=== PATIENT | female | born 1940 | race Caucasian/White ===

== ENCOUNTER 2017-01-01 00:19 | Inpatient (IN) | payer OTHER ==
[2017-01-01] MEDS ORDERED: ASPIRIN PO STA (00:26)
[2017-01-01] MEDS ORDERED: NITROGLYCERIN SL PRN (00:26)
[2017-01-01] MEDS ORDERED: CARDIZEM ONE (00:33)
[2017-01-01] MEDS ORDERED: CARDIZEM IV ONE (00:39)
[2017-01-01 00:45] LABS: MANUAL DIFF NEEDED? NO
[2017-01-01 00:47] LABS: BASO% 0.4 % (0.0-0.8); EOS# 0.25 X1000 (0.0-0.7); EOS% 2.7 % (0.0-10.0); HEMOGLOBIN 9.2 g/dL (12.0-16.0); IMM GRAN# 0.03 X1000 (0.0-0.04); IMM GRAN% 0.3 % (0.0-0.5); LYMPH# 1.13 X1000 (1.2-3.4); LYMPH% 12.2 % (20.5-51.1); MCH 27.5 PG (27-31); MCHC 31.7 g/dL (33-37); MCV 86.6 FL (81-99); MONO# 0.69 X1000 (0.11-0.59); MONO% 7.4 % (1.7-9.3); MPV 11.7 FL (7.4-10.4); PLT 241 X1000 (130-400); RBC 3.35 XMIL (4.2-5.4)
--- NOTE | 2017-01-01 00:48 | PROVIDER DOCUMENTATION ---
HPI-Respiratory General - General Chief Complaint: Shortness of Breath Stated Complaint: SOB Time Seen by Provider: 01/01/17 00:25 Source: patient Allergies/Adverse Reactions: Patient Allergies Allergy/AdvReac Type Severity Reaction Status Date / Time No Known Allergies Allergy Verified 01/01/17 00:38 Home Medications: Home Medication List Medication Instructions Recorded Confirmed Last Taken Type Budesonide/Formoterol Fumarate 10.2 gm IH BID 01/01/17 01/01/17 12/31/16 History [Symbicort 160-4.5 Mcg Inhaler] Furosemide [Lasix] 60 mg PO DAILY 01/01/17 01/01/17 12/31/16 History Hydralazine [Apresoline] 50 mg PO TID 01/01/17 01/01/17 12/31/16 History Isosorbide Dinitrate 30 mg PO TID 01/01/17 01/01/17 12/31/16 History Lisinopril [Zestril] 20 mg PO DAILY 01/01/17 01/01/17 12/31/16 History Metolazone 5 mg PO DIRECTED 01/01/17 01/01/17 12/31/16 History Nilotinib HCl [Tasigna] 150 mg PO BID 01/01/17 01/01/17 12/31/16 History - History of Present Illness-Resp Nature of Presenting Problem: pt is 76 y/o WF states she woke up with SOB, weak, dizzy. She checked her pressure and states her heart rate was 150. She called 911. Pt states she is on 3L of home O2. EMS report on arrival pt was diaphoretic in a irregular rhythm and as pt converted into a sinus rhytm her rate got down to the 40's with a very short period of asystole. Quality of Pain: reports: aching, tightness Severity in ED: reports: mild Onset/Duration: reports: just prior to arrival Timing: reports: intermittent Cough Quality/Degree: reports: no cough Current Respiratory Medication Therapy: Initiated see nurses note Modifying Factors: improves with: nothing Associated Symptoms: reports: chest pain/soreness, heart racing, lightheadedness , shortness of breath, sweaty. denies: cough, fever/chills Similar Symptoms Previously?: No Recently seen or treated by another doctor?: No Review of Systems - Adult - REVIEW OF SYSTEMS - ADULT Constitutional: denies: chills, fever Eyes: reports: no symptoms reported Ears, Nose, Mouth & Throat: reports: no symptoms reported Cardiovascular: reports: chest pain, edema Respiratory: reports: shortness of breath. denies: cough, wheezing Gastrointestinal: reports: no symptoms reported Genitourinary: reports: no symptoms reported Musculoskeletal: reports: no symptoms reported Integumentary: reports: no symptoms reported Neurological: reports: no symptoms reported Psychiatric: reports: no symptoms reported Endocrine: reports: no symptoms reported Hematologic/Lymphatic: reports: no symptoms reported Allergic/Immunologic: reports: no symptoms reported All Other Systems: Reviewed and Negative Past History - Adult - PAST MEDICAL HISTORY-ADULT Review of Records: reports: Old Records Reviewed, Nursing Assessment Review, Medications Reviewed Major Childhood Illnesses: reports: denies history Cardiovascular: reports: HTN, other (MVP, bradycardia) Respiratory: reports: asthma Gastrointestinal: reports: other (diverticulitis) Obstetrical/Gynecological: reports: other (breast cancer) Genitourinary: reports: denies history Musculoskeletal: reports: denies history Neurological: reports: denies history Endocrine/Immune: reports: denies history Other Conditions: reports: denies history - PRIOR SURGERIES/PROCEDURES Surgical/Procedure History: reports: colonoscopy, hysterectomy, other (bladder tack, right breast lumpectomy with lymph node removal) - IMMUNIZATION STATUS Childhood Immunizations: See Nurse Assessment Flu Vaccine: See Nurse Assessment - FAMILY HISTORY Family History: reviewed, not pertinent - SOCIAL HISTORY Smoking: non-smoker Substance Use: none/never Living Situation: alone Physical Exam-General - PHYSICAL EXAM-ADULT Initial Vital Signs Reviewed: Yes - CONSTITUTIONAL General Appearance: alert, mild distress, anxious - EYES Eyes: PERRL/EOMI, pink conjunctivae - HEAD, EARS, NOSE, MOUTH & THROAT HENMT: moist mucous membranes, normal ENT inspection, TMs normal, pharynx normal - NECK Neck: non-tender, full range of motion, supple, normal inspection - RESPIRATORY Respiratory: respiratory distress, accessory muscle use, increased rate - CARDIOVASCULAR Cardiovascular: systolic murmur (3/6), irregularly irregular - GASTROINTESTINAL (ABDOMEN) Abdominal Exam: non tender, soft - MUSCULOSKELETAL Back Exam: no CVA tenderness, no vertebral tenderness Extremity: normal range of motion, non-tender, pedal edema (1+) - SKIN Integumentary: normal color, normal turgor, warm/dry - NEUROLOGIC Neurologic: grossly normal, no motor/sensory deficits - PSYCHIATRIC Psych/Mental Status: normal thought content, normal thought process, oriented x 3, anxious Progress - PLAN OF CARE/RESULTS Progress/Plan/Lab Results: Orders Category Date Time Status Cardiac Monitoring DIRECTED Care 01/01/17 00:26 Active Saline Loc NOW Care 01/01/17 00:26 Active CHEST-1 VIEW [RAD] Stat Exams 01/01/17 00:27 Taken CBC WITH ELECTRONIC DIFF [HEME] Stat Lab 01/01/17 00:30 Completed CK PROFILE [SP CHEM] Stat Lab 01/01/17 00:30 Completed COMPREHENSIVE METABOLIC PANEL [CHEM] Stat Lab 01/01/17 00:30 Completed D-DIMER [CHEM] Stat Lab 01/01/17 00:30 Completed MAGNESIUM [CHEM] Stat Lab 01/01/17 00:30 Completed PRO B-NATRIURETIC PEPTIDE Stat Lab 01/01/17 00:30 Completed PROTIME WITH INR [COAG] Stat Lab 01/01/17 00:30 Completed PTT [COAG] Stat Lab 01/01/17 00:30 Completed TROPONIN T Stat Lab 01/01/17 00:30 Completed Aspirin Med 01/01/17 00:26 Discontinued 325 mg PO STAT STA Diltiazem [Cardizem] Med 01/01/17 00:39 Discontinued 10 mg IV NOW ONE Diltiazem [Cardizem] Med 01/01/17 00:33 Discontinued 25 mg .ROUTE .STK-MED ONE Nitroglycerin Sl [Nitroglycerin] Med 01/01/17 00:26 Active 0.4 mg SL Q5M PRN PRN EKG [EKG] Stat Ther 01/01/17 00:22 Ordered EKG [EKG] Stat Ther 01/01/17 00:26 Ordered Vital Signs Temp Pulse Resp BP Pulse Ox 01/01/17 01:43 54 L 27 H 169/49 100 01/01/17 00:42 61 20 144/65 98 01/01/17 00:25 97.8 F 89 27 H 206/74 98 No Known Allergies Allergy (Verified 01/01/17 00:38) Budesonide/Formoterol Fumarate [Symbicort 160-4.5 Mcg Inhaler] 10.2 gm IH BID Furosemide [Lasix] 60 mg PO DAILY 01/01/17 Hydralazine [Apresoline] 50 mg PO TID 01/01/17 Isosorbide Dinitrate 30 mg PO TID 01/01/17 Lisinopril [Zestril] 20 mg PO DAILY 01/01/17 Metolazone 5 mg PO DIRECTED 01/01/17 Nilotinib HCl [Tasigna] 150 mg PO BID 01/01/17 Laboratory 01/01/17 01/01/17 01/01/17 00:30 00:30 00:30 WBC RBC Hgb Hct MCV MCH MCHC RDW Std Deviation Plt Count MPV Immature Gran % (Auto) Neut % (Auto) Lymph % (Auto) Stephens % (Auto) Eos % (Auto) Baso % (Auto) Immature Gran # (Auto) Neut # (Auto) Lymph # (Auto) Stephens # (Auto) Eos # (Auto) Baso # (Auto) PT 9.9 INR 0.97 PTT (Actin FS) 24.7 D-Dimer Sodium Potassium Chloride Carbon Dioxide Anion Gap BUN Creatinine Estimated GFR/1.73 m2 BUN/Creatinine Ratio Glucose Calculated Osmolality Calcium Magnesium Total Bilirubin AST ALT Alkaline Phosphatase Creatine Kinase Troponin T 0.077 [id number] Pept 3219 H Total Protein Albumin Globulin Albumin/Globulin Ratio 01/01/17 01/01/17 01/01/17 00:30 00:30 00:30 WBC 9.29 RBC 3.35 L Hgb 9.2 L Hct 29.0 L MCV 86.6 MCH 27.5 MCHC 31.7 L RDW Std Deviation 15.8 H Plt Count 241 MPV 11.7 H Immature Gran % (Auto) 0.3 Neut % (Auto) 77.0 H Lymph % (Auto) 12.2 L Stephens % (Auto) 7.4 Eos % (Auto) 2.7 Baso % (Auto) 0.4 Immature Gran # (Auto) 0.03 Neut # (Auto) 7.15 H Lymph # (Auto) 1.13 L Stephens # (Auto) 0.69 H Eos # (Auto) 0.25 Baso # (Auto) 0.04 PT INR PTT (Actin FS) D-Dimer 0.48 Sodium 136 Potassium 4.7 Chloride 94 L Carbon Dioxide 28 Anion Gap 14 BUN 58 H Creatinine 1.7 H Estimated GFR/1.73 m2 29 BUN/Creatinine Ratio 34 Glucose 124 H Calculated Osmolality 290 Calcium 9.4 Magnesium 2.0 Total Bilirubin 0.35 AST 17 ALT 21 Alkaline Phosphatase 109 H Creatine Kinase 39 Troponin T [id number]-S-Grtcetozyzp Pept Total Protein 7.1 Albumin 3.8 Globulin 3.3 Albumin/Globulin Ratio 1.2 - EKG 1 Time of EKG reading by physician:: 00:22 EKG Read and Signed by:: Candido Nunez EKG Interpretation (*Must complete 3 of following elements*): Abnormal Rate: 84 Rhythm: NSR with sinus arrhythmia ST Wave: non-specific ST changes Comments: Possible left atrial enlargment 2 Time of EKG reading by physician:: 00:29 EKG Read and Signed by:: Candido Nunez EKG Interpretation (*Must complete 3 of following elements*): Abnormal Rate: 49 Rhythm: Undetermined Rhythm ST Wave: non-specific ST changes Comments: abnormal ECG 3 Time of EKG reading by physician:: 00:44 EKG Read and Signed by:: Candido Nunez EKG Interpretation (*Must complete 3 of following elements*): Abnormal Rate: 129 Rhythm: A-Fib with RVR ST Wave: depressed Comments: consider subendocardial injury - XRAY 1 XRAY Study: Chest Impression: Abnormal XRAY Interpretation: CHF right side infiltrate read by Dr Nunez - CONSULTS/PCP/HOSPITALIST Notification #1 *Consult/PCP/Hospitalist*: Dr Jefferson Time Discussed: 02:06 Reason/Comments: Admission Consult Disposition: Admit (accepts) Departure - Departure Time of Disposition Order: 01:55 DIAGNOSIS: SOB (shortness of breath) CHF (congestive heart failure) Qualifiers: Congestive heart failure type: unspecified congestive heart failure type Congestive heart failure chronicity: unspecified congestive heart failure chronicity Qualified Code(s): I50.9 - Heart failure, unspecified Disposition: ADMITTED INPATIENT 09 Certified Medical Emergency: Emergent Condition: Stable Referrals: Bo Bowman MD [Primary Care Provider] - Attestation - Scribe Verification/Attestation Scribe:: Augusto Levine Acting as Scribe for:: Candido Nunez Scribe documention review:: This chart was documented by a scribe and accurately reflects the service the provider performed and the decisions made by the provider.
[2017-01-01 01:06] LABS: ALBUMIN 3.8 g/dL (3.5-5.0); CALCIUM 9.4 mg/dL (8.8-10.2); POTASSIUM 4.7 mmol/L (3.5-5.1); TOTAL BILIRUBIN 0.35 mg/dL (0.20-1.00); TOTAL PROTEIN 7.1 g/dL (6.3-8.3)
[2017-01-01 01:07] LABS: INR 0.97; PROTIME 9.9 Seconds (9.2-11.7); PTT 24.7 Seconds (22.0-36.0)
[2017-01-01] MEDS ORDERED: LASIX IV ONE (02:09)
[2017-01-01] MEDS: LASIX IV SCH ×2 (02:15→14:12)
[2017-01-01] MEDS ORDERED: LOVENOX SUBQ SCH (03:30)
[2017-01-01 03:35] LABS: URINE CULTURE NEEDED? NO; URINE MICRO REVIEW NEEDED? NO; URINE SOURCE CATH
[2017-01-01 03:37] LABS: BILIRUBIN URINE NEGATIVE (NEGATIVE); BLOOD URINE NEGATIVE (NEGATIVE); COLOR YELLOW; GLUCOSE URINE NEGATIVE (NEGATIVE); LEUKOCYTES URINE NEGATIVE (NEGATIVE); NITRITE URINE NEGATIVE (NEGATIVE); PH URINE 7.5; PROTEIN URINE 50 mg/dL (NEGATIVE); SP GRAVITY URINE 1.009; TURBIDITY URINE CLEAR (CLEAR); UROBILINOGEN URINE NORMAL (NORMAL)
[2017-01-01 03:38] LABS: UR EPITHELIAL CELLS <10 /HPF (<10); URINE BACTERIA NEGATIVE /HPF; URINE RBC <10 /HPF (<10); URINE WBC <10 /HPF (<10)
--- NOTE | 2017-01-01 04:44 | HISTORY AND PHYSICAL ---
CHIEF COMPLAINT: Shortness of breath. HISTORY OF PRESENT ILLNESS: Briefly, a 76-year-old female with a history of hypertension, mitral valve prolapse, and CML who presents with worsening shortness of breath. Patient has had several episodes of weakness. She had a fairly prolonged course in May with a colectomy. She was admitted about 2 months ago for a GI bleed. Patient reports this time, more shortness of breath. No mitch chest pains. Positive palpitations. No other main issues. However, she came to the ER. She was in atrial fibrillation with rapid ventricular response with a heart rate in the 140s. That has since been rate controlled with IV medications. She was also found to be in CHF and she was admitted for both problems. Past medical history of CML, on Tasigna. The patient again is admitted for CHF exacerbation and atrial fibrillation with RVR. PAST SURGICAL HISTORY: She has had a hysterectomy. She has had a partial colectomy for a polyp. PAST MEDICAL HISTORY: 1. History of cholelithiasis. 2. Chronic renal failure stage II. 3. CML. 4. History of sick sinus syndrome. 5. Mitral valve prolapse. FAMILY HISTORY: Reviewed and noncontributory. SOCIAL HISTORY: No tobacco or ethanol. ALLERGIES: No known drug allergies. MEDICATIONS: She is on hydralazine 50 t.i.d., Symbicort b.i.d., isosorbide dinitrate 30 t.i.d., Lasix 60 daily, Zestril 20 daily, metolazone 5 three times a week, and Tasigna 150 b.i.d. REVIEW OF SYSTEMS: Otherwise negative. PHYSICAL EXAMINATION: VITAL SIGNS: Blood pressure 169/49, heart rate 54, respiratory rate is 27, temperature 97.8 degrees. LABORATORY DATA: Chest x-ray is pending but showed some interstitial infiltrates. Laboratory data, hemoglobin and hematocrit of 9 and 29, white count normal. BUN and creatinine 58 and 1.7. BNP 3219. Urine was not obtained. ASSESSMENT: This is a 76-year-old female presenting with shortness of breath and palpitations, consistent with a congestive heart failure exacerbation, possible atrial fibrillation with rapid ventricular response leading to the pulmonary congestion. She does have tricuspid regurgitation and severe pulmonary hypertension. 1. Congestive heart failure exacerbation. Continue diuresis and follow clinically. 2. We will not repeat an echocardiogram because it was just done and her tricuspid regurgitation explains the physical examination findings. 3. Atrial fibrillation is a new diagnosis. I am going to start some low-dose Cardizem if her heart rate can tolerate. Follow her electrolytes. I do think she needs to be anticoagulated. She is 74 and a female with hypertension. She will need evaluation for outpatient with medications. 4. Hypertension, appears to be stable. Continue to monitor very closely. 5. Chronic myeloid leukemia. We will continue to monitor. Obviously from a heart failure standpoint, we are going to have to hold the Tasigna for right now.
--- NOTE | 2017-01-01 05:23 | EKG Report ---
Test Performed on : 01/01/2017 00:22:53 AM Test Reason : SOB Blood Pressure : / mmHG Vent. Rate : 084 BPM Atrial Rate : 084 BPM P-R Int : 156 ms QRS Dur : 088 ms QT Int : 374 ms P-R-T Axes : 043 024 -14 degrees QTc Int : 441 ms Normal sinus rhythm. with sinus arrhythmia. Possible Left atrial enlargement ST & T wave abnormality, consider inferior ischemia Abnormal ECG When compared with ECG of 08-NOV-2016 14:16, Inverted T waves have replaced nonspecific T wave abnormality in Inferior leads Nonspecific T wave abnormality no longer evident in Lateral leads QT has lengthened Unconfirmed Result
--- NOTE | 2017-01-01 05:23 | EKG Report ---
Test Performed on : 01/01/2017 00:29:45 AM Test Reason : SOB Blood Pressure : / mmHG Vent. Rate : 049 BPM Atrial Rate : 039 BPM P-R Int : 000 ms QRS Dur : 094 ms QT Int : 378 ms P-R-T Axes : 000 038 002 degrees QTc Int : 341 ms Undetermined rhythm Nonspecific ST abnormality Abnormal ECG When compared with ECG of 01-JAN-2017 00:22, (Unconfirmed) Current undetermined rhythm precludes rhythm comparison, needs review T wave inversion less evident in Inferior leads T wave inversion less evident in Anterior leads QT has shortened Unconfirmed Result
[2017-01-01] MEDS: NITROGLYCERIN TOP SCH ×4 (05:33→21:30)
[2017-01-01] MEDS ORDERED: TYLENOL PO PRN (06:45)
[2017-01-01] MEDS ORDERED: ZOFRAN IV PRN (06:45)
[2017-01-01] MEDS: SYMBICORT 160/4.5 MICROGM INHALER INH SCH ×3 (07:30→19:30)
[2017-01-01] MEDS ORDERED: ISOSORBIDE DINITRATE 30 MG PO SCH (09:00)
[2017-01-01] MEDS ORDERED: COREG PO SCH (09:00)
[2017-01-01] MEDS ORDERED: APRESOLINE PO SCH (09:00)
[2017-01-01] MEDS: PRINIVIL PO SCH (09:20)
[2017-01-01] MEDS: CARDIZEM PO SCH ×3 (09:20→16:53)
--- NOTE | 2017-01-01 12:28 | Diag Imaging Result Document ---
PROCEDURE NAME: CHEST-1 VIEW - 01/01/2017 PORTABLE CHEST X-RAY: COMPARISON: 08/15/2016. FINDINGS: Stable significant right hemidiaphragm elevation. Stable significant cardiomegaly. Stable pulmonary vascular congestion. Stable right basilar atelectasis. No new or focal infiltrates. IMPRESSION: No significant change from prior.
[2017-01-01] MEDS ORDERED: LOPRESSOR PO SCH ×2 (14:00→21:00)
[2017-01-01] MEDS: APRESOLINE PO SCH ×2 (14:13→16:53)
--- NOTE | 2017-01-01 16:04 | CONSULTATION ---
DATE OF CONSULTATION: 01/01/2017 HISTORY OF PRESENT ILLNESS: A 76-year-old lady with a history of mitral valve prolapse, CML, GI bleeding in the past. Two months ago was admitted in the hospital for GI bleed. Comes having sudden onset of palpitations associated with shortness of breath. She was noted to be in atrial fibrillation with rapid ventricular rate with a heart rate of 140s. She also was noted to have some shortness of breath. Denies any chest pain. She came to the emergency room and subsequently she went back into normal rhythm and had bradycardias in the 50s. This is the 1st time she has had palpitations or atrial fibrillations which has been recorded. REVIEW OF SYSTEM: 14 point review of systems was done. GI: There is no history of nausea, vomiting, diarrhea. There is no history of hematemesis or melena. : There is no dysuria or hematuria. Central nervous system: No focal weakness to suggest a CVA or TIA. PAST MEDICAL HISTORY: 1. Cholelithiasis. 2. Mitral valve prolapse. 3. Chronic myeloid leukemia. 4. Chronic renal insufficiency. 5. GI bleed status post upper GI and colonoscopy. 6. Polypectomy in the recent past. 7. Hypertension. HOME MEDICATIONS: 1. Hydralazine 50 t.i.d. 2. Symbicort twice daily. 3. Isosorbide dinitrate 30 t.i.d. 4. Lasix 60. 5. Zestril 20. 6. Metolazone 2.5, 3 times a week. 7. Tasigna 150 b.i.d. for her CML. PHYSICAL EXAMINATION: Vital signs: Blood pressure 160/49. Cardiovascular System: Normal jugular venous pressure. There is no thyromegaly. There is no carotid bruit. First and second heart sounds were heard. There was no S3 gallop. Respiratory System: Normal air entry. There were no crepitations and a few scattered wheezes were noted. Abdomen: Soft, nontender. There was no guarding or rigidity. Bowel sounds were heard. Central nervous system: Alert, was moving all 4 extremities. Extremities: Examination of extremities revealed no pedal edema. PERTINENT DATA: 1. Laboratory revealed sodium 136, potassium 4.7, BUN 58, creatinine 1.7. Troponin initial was normal at 0.77. Subsequent abnormal troponin at 0.129. CK-MB was 36 and 39. 2. Electrocardiogram revealed atrial fibrillation with nonspecific ST-T changes, heart rate of 130, and subsequent electrocardiogram revealed normal sinus rhythm. There were no ST-T changes to suggest ischemia. 3. Hematology: Hemoglobin 9.2, hematocrit 29, platelet count of 241,000. 4. Echocardiogram done on 11/09/2016 revealed ejection fraction of 70%. There is severe pulmonary arterial hypertension with pulmonary artery systolic pressure of 80-85 mmHg. ASSESSMENT: 1. New onset atrial fibrillation. Currently in sinus rhythm. Associated with severe pulmonary arterial hypertension. She has episodes of bradycardia in the 50s; however, she probably has sick sinus syndrome and we will try her on low-dose beta-blockers. 2. We will also get a Cardiolite stress test to assess for and rule out ischemia. 3. She is not anticoagulated as she recently had a gastrointestinal bleed. 4. Her chest x-ray revealed cardiomegaly. There was some basilar atelectasis. No focal infiltrates were noted. No significant change from prior study. 5. Hypertension. Continue with her current medications. 6. She has been on Lasix and metolazone at home. We will currently decrease the Lasix to 40 mg daily. Thank you for the consult. We will follow hospital course.
[2017-01-02 04:00] LABS: HEMATOCRIT 26.4 % (37.0-47.0); HEMOGLOBIN 8.5 g/dL (12.0-16.0); MCH 27.8 PG (27-31); MCHC 32.2 g/dL (33-37); MCV 86.3 FL (81-99); MPV 12.5 FL (7.4-10.4); RBC 3.06 XMIL (4.2-5.4)
[2017-01-02 04:19] LABS: CALCIUM 8.9 mg/dL (8.8-10.2); POTASSIUM 4.8 mmol/L (3.5-5.1)
--- NOTE | 2017-01-02 07:23 | Diag Imaging Result Document ---
PROCEDURE NAME: CHEST-PORTABLE - 01/02/2017 PORTABLE CHEST: COMPARISON: 01/01/2017. FINDINGS: The right hemidiaphragm is elevated. The heart remains enlarged. There is vascular distention which persists. Questionable tiny right effusion. No left effusion identified. The overall appearance is quite similar to that of the prior exam. IMPRESSION: Stable chest.
[2017-01-02] MEDS ORDERED: LEXISCAN ONE (07:51)
[2017-01-02] MEDS ORDERED: AMINOPHYLLINE ONE (08:31)
[2017-01-02] MEDS ORDERED: LASIX PO SCH (09:00)
[2017-01-02] MEDS: PRINIVIL PO SCH (09:38)
[2017-01-02] MEDS: NITROGLYCERIN TOP SCH ×4 (09:46→21:43)
[2017-01-02] MEDS: SYMBICORT 160/4.5 MICROGM INHALER INH SCH ×2 (10:15→20:10)
[2017-01-02] MEDS: APRESOLINE PO SCH ×3 (10:16→17:40)
[2017-01-02] MEDS: CARDIZEM PO SCH ×3 (10:16→17:40)
[2017-01-02] MEDS ORDERED: NS 1,000 ML IV SCH ×2 (12:00→16:47)
--- NOTE | 2017-01-02 13:34 | Diag Imaging Result Document ---
PROCEDURE NAME: MYOCARDIAL PERF SCAN, STR/REST - 01/02/2017 STUDY: Rest/stress Lexiscan myocardial perfusion study. REQUESTING PHYSICIAN: David Francisco MD PRIMARY PHYSICIAN: Bo Bowman MD INDICATION: Abnormal electrocardiogram and high blood pressure. DESCRIPTION: The patient came into the nuclear lab and received a rest injection of technetium 99 sestamibi 10.7 mCi. Multiple tomographic views of the cardiac structures were obtained at rest. Subsequently the patient underwent infusion of Lexiscan 0.4 mg. At peak infusion she was injected with technetium 99 sestamibi 30.3 mCi. Multiple tomographic views were obtained following the completion of the protocol. The following is a summary of the electrocardiographic portion of the study. Resting ECG showed sinus bradycardia, possible junctional bradycardia at a rate of 50 beats per minute. Resting blood pressure was 178/88. Resting ECG suggests an old lateral infarct. During infusion of Lexiscan the heart rate increased to a maximum of 85 beats per minute. Blood pressure dropped to 115/62. The patient reported mild shortness of breath and some nausea. The ECG showed exaggeration of the ST abnormality in the lateral leads. Some PACs were noted. Following the completion of infusion the heart rate and blood pressure returned back to baseline. There was a very pronounced ST abnormality at about 2.5 minutes into the postinfusion. The patient received aminophylline 125 mg. In summary, electrocardiographic response to infusion of Lexiscan is deemed to be suspicious for ischemia. Next, is the summary of the myocardial perfusion portion of the study. Poststress tomographic views of the left ventricle showed a severe focal apical anterior defect. In addition, there is more moderately extensive [id number] in severity inferior wall defect that spans the basal and mid inferior wall. The rest images showed reversibility of the inferior defect almost in its entirety and significant reversibility of the apical anterior defect. It is really a mixed defect. Polar plots revealed that there is inducible ischemia on top of what appears to be a focal scar in the apical anterior area of the left ventricle and also inducible ischemia of the inferior wall in the basal to mid portion. Minimal attenuation or scar is noted in the basal inferior wall. Gated SPECT showed normal left ventricular systolic function. The ejection fraction was 60%. The lung/heart ratio is normal. TID is normal. SUMMARY: In summary, this study shows: 1. Abnormal electrocardiographic response to infusion of Lexiscan. Suspicious for inducible ischemia. 2. Abnormal poststress myocardial perfusion scan. There is evidence of inducible ischemia involving the apical anterior portion of the left ventricle as well as the basal to mid inferior wall of the left ventricle. That would be two separate coronary territories. 3. Normal left ventricular systolic function with ejection fraction estimated at 60% with normal ventricular volumes and no wall motion abnormality. This study indicates a significant increased risk for ischemic events. Clinical correlation is recommended.
--- NOTE | 2017-01-02 18:49 | CONSULTATION ---
DATE OF CONSULTATION: 01/02/2017 REASON FOR ADMISSION: Shortness of breath. REASON FOR CONSULT: Chronic kidney disease with assistance with medical management prior to left and right heart catheterization per cardiology. HISTORY OF PRESENT ILLNESS: Ms Estrada is a 76-year-old white female with a history of CKD stage 3. She has had a history of significant hyponatremia. She has hypertension, mitral valve prolapse, CML, who presents with worsening increased work of breathing over the last several days prior to her admission. She has had frequent hospitalizations in the last year. She has had a colectomy in May. Two months ago she had GI bleed. Prior to that she had increased work of breathing. Prior to that she had hyponatremia. Upon presentation to the emergency room patient had a atrial fibrillation with RVR. Heart rate was in the 140s. She was given IV medications for rate control. She was also found to be in congestive heart failure and subsequently admitted for workup. Patient takes Tasigna for her CML. During this period of time she denies any chest pain. She states that her increased work of breathing has improved. She continues to keep a very close fluid restriction of 1 L in 24 hours. She denies any fever or chills. No nausea, vomiting, no diarrhea. Positive for increased work of breathing with any exertion. She has had an abnormal stress test secondary to this. Cardiology would like to transfer her to [facility] for workup and procedure of left and right heart catheterization. Patient's family has requested that nephrology see her due to the admission of IV fluid prior to having this procedure to well hydrate the patient. PREVIOUS SURGICAL HISTORY: She has had a hysterectomy, partial colectomy for polyp and a colectomy. MEDICAL HISTORY: Cholelithiasis, chronic kidney disease stage 3, CML, history of sick sinus syndrome, mitral valve prolapse and a history of hyponatremia. FAMILY HISTORY: Noncontributory. SOCIAL HISTORY: She lives alone. She has a daughter who is attentive to her care. She denies any tobacco, alcohol or illicit drug use. CURRENT ALLERGIES: No known drug allergies. HOME MEDICATIONS: Hydralazine, Symbicort, isosorbide dinitrate, Lasix, Zestril, metolazone and Tasigna. REVIEW OF SYSTEMS: Times 10 with pertinent positives listed above in the HPI. VITAL SIGNS: Most recent temperature 97.9 degrees, blood pressure 179/53, heart rate 68, respirations 20. She is currently on 3 L nasal cannula. Last recorded saturation is 100%. She has had 1390 in. She has had 2100 out per Carrasco catheter. She is in a -3 L fluid balance for the last 48 hours with already accumulation of 2750 out per Carrasco since this a.m. LABS: Sodium 138, potassium 4.8, chloride 95, CO2 30, BUN 59, creatinine 1.6, glucose 110, her anion gap is 13, calcium 8.9, previous magnesium of 2, albumin of 3.8. Her BNP is 5599. She has elevated troponins, negative CPKs and MBs. White count 8.72, hemoglobin 8.5, hematocrit 26.4 with a platelet count of 232,000. Her PT is 9.9, INR 0.97, PTT 24.7 with a D-dimer 0.48. Urinalysis is trace proteinuria, negative hematuria, negative leukocytes. Throat culture is still currently pending. Group A strep is negative. Chest x-ray completed at noon today shows stable chest. Stress test indicated showing that she has a 60% ejection fraction with abnormal EKGs both resting and active. PHYSICAL EXAMINATION: General: This is a 76-year-old white female. She is currently resting in bed. She is eating her dinner. She has no complaints at this time. Skin: Warm and dry. HEENT: Normocephalic, atraumatic. Conjunctiva is pale. Mucous membranes are moist. Neck: Supple. Trachea midline. No JVD. Cardiovascular: She is irregular rate and rhythm. She is irregular on her heart monitor. No murmur or gallop were appreciated. Lungs: She has a few scattered wheezes the upper lobes. She continues on O2. Equal excursion. No crackles noted. Abdomen: Round, soft, nontender. Positive bowel sounds. Extremities: Have no edema, no clubbing or cyanosis. Neurological: Alert and oriented x3. ASSESSMENT AND PLAN: 1. Chronic kidney disease stage 3B. Patient's baseline creatinine remains stable. We have discussed possible complications related to a left and right heart catheterization. Patient is in agreement to go ahead and starting a low dose of normal saline to infuse at 50 mL an hour. She states that she would like to have a PICC line. Unfortunately the PICC team after talking with the nurse has already left for the day. We will attempt to use the current IV that we have. There is no indications for any changes at this time. 2. Electrolytes. These are stable. 3. Acid-base balance. This is stable. 4. Anemia. This remains stable. 5. Electrocardiogram with atrial fibrillation and nonspecific ST changes. Patient has suggestion of ischemic heart. The cardiology team is attempting to get her to [facility] for plan for right and left heart catheterization. I would like to thank you for allowing us to follow with this patient. Dictated by CLAUDIA Berry for oDnato Jaramillo MD
[2017-01-02 19:34] VITALS: BP 127/49
--- NOTE | 2017-01-03 14:10 | DISCHARGE SUMMARY ---
ADMISSION DATE: 01/01/2017 DISCHARGE DATE: 01/02/2017 CONSULTATION: Dr. David Francisco, Cardiology. PERTINENT PROCEDURES: Lexiscan that showed an electrographic response to infusion of Lexiscan scan that seemed to be suspicious for ischemia and post-stress tomographic views of the left ventricle showed severe probable apical anterior defect. There was evidence of inducible ischemia involving the anterior portion of the left ventricle as well as the vpebi-rh-xan inferior wall of the left ventricle. That would be 2 separate coronary territories. Normal left ventricular systolic function with an EF estimated at 60%. The study indicated significant increased risk for ischemic event. DISCHARGE DIAGNOSES: 1. Chronic heart failure exacerbation. The patient was initiated on diuresis with a repeat echocardiogram. 2. New onset atrial fibrillation. The patient will start on low-dose Cardizem. Electrolytes were followed. The patient will be admitted and placed on anticoagulation. Cardiology was consulted. 3. Hypertension, stable. 4. Chronic myeloid leukemia. Her Tasigna was held for now in light of her heart failure. assessed the patient. She was currently in sinus rhythm associated with severe pulmonary hypertension. She has had episodes of bradycardia in the 50s. It was felt she probably has sick sinus syndrome and that he would start her on a low-dose beta devonte. Also suggested to do a Cardiolite stress test to rule out any ischemia. After further assessment, the patient had a recent GI bleed so she will not be anticoagulated. At this point in time, the patient did undergo a Lexiscan stress test. This study did indicate a significant increased risk for ischemic event. She did have a normal electrocardiographic response to the infusion as well as abnormal post stress myocardial perfusion scan with evidence of inducible ischemia involving the apical anterior portion of the left ventricle as well as the gyfyz-qu-tlv inferior wall of the left ventricle. That will be 2 separate coronary territories. EF of 60% with normal ventricle volumes and no wall motion abnormality. After discussion with Cardiology, the patient will be transferred to [facility] for further evaluation as well as GI evaluation. DISCHARGE MEDICATIONS: Will be as per Dr. Vogel and the Cardiology team. DISCHARGE INSTRUCTIONS: The patient will need to follow up with her primary care physician, Dr. Bo Bowman after her admission from [facility] as well as following up with Cardiology and GI per their recommendations. DISCHARGE TIME: 30 minutes. Dictated by CLAUDIA Kim for Dillon Maldonado MD
--- NOTE | 2017-01-05 09:16 | CONSULTATION ---
DATE OF CONSULTATION: 01/05/2017 We appreciate this consult CHIEF COMPLAINT: CML. HISTORY OF PRESENT ILLNESS: Ms. Estrada is a 76-year-old female with a history of chronic myeloid leukemia, hypertension, mitral valve prolapse who presented to [facility] Emergency Department secondary to progressively worsening shortness of breath. The patient reports that she has had several episodes of profound weakness. Additionally she reports that she had a colectomy in May with a prolonged recovery. The patient was admitted 2 months ago for a GI bleed as well. The patient reports that prior to presentation she had progressively worsening shortness of breath. She denies any chest pain. She does report that she had palpitations as well. Upon presentation to [facility] the patient was found to be in atrial fibrillation with rapid ventricular response. Her heart rate was in the 140s. The patient was begun on IV medication which has controlled her rate. Additionally she is found to be in congestive heart failure at this time. The patient is well known to Dr. Laci Kimble for a diagnosis of CML. She is being maintained on Tasigna. PAST MEDICAL HISTORY: 1. Cholelithiasis. 2. Chronic renal failure stage 2. 3. CML. 4. Sick sinus syndrome. 5. Mitral valve prolapse. PAST SURGICAL HISTORY: 1. Hysterectomy. 2. Partial colectomy. FAMILY HISTORY: Negative for any hematologic or oncologic disease. SOCIAL HISTORY: The patient denies any tobacco, alcohol or illicit drugs. MEDICATIONS ON ADMISSION: 1. Hydralazine. 2. Symbicort. 3. Isosorbide dinitrate. 4. Lasix. 5. Zestril. 6. Metolazone. 7. Tasigna. ALLERGIES: The patient has no known drug allergies. REVIEW OF SYSTEMS: The 14 point review of systems was obtained and is negative except as mentioned in HPI. PHYSICAL EXAM: Ms. Estrada is a very pleasant 76-year-old female lying supine in bed. Slightly dyspneic but otherwise in no apparent distress.Vital Signs: Temperature afebrile. Blood pressure 174/51. Heart rate 41. Respirations 20, O2 saturation is 100% on 3 L. HEENT: Normocephalic, atraumatic. Mucous membranes are pale and somewhat dry. Sclerae is anicteric. Extraocular movements intact. Extraocular movements intact. Neck: Supple. Lungs: Clear to auscultation bilaterally. Chest expansion is equal bilaterally. CV: S1, S2 is heard without murmur, rub or gallop. Abdomen: Soft, nondistended, nontender. Bowel sounds positive all quadrants. No rebound or guarding noted. Extremities: Without clubbing, cyanosis, or edema. Dermatologic: No rashes, bruises or lesions. Neurologic: The patient is awake, alert, and oriented x3. She has no focal deficit at this time. LABORATORY DATA: Hemoglobin 8.5, hematocrit 26.4, white blood cell count is 8.72, platelets 232,000. Sodium 138, potassium 4.8, chloride 95, CO2 is 30, BUN 59, creatinine 1.6, glucose 110, proBNP is 5599. Calcium 8.9. Throat culture is currently pending. Strep test is negative. Chest x-ray was stable. ASSESSMENT AND PLAN: 1. Chronic myeloid leukemia, currently being maintained on Tasigna. We will hold Tasigna until the patient's acute illness passes. 2. Congestive heart failure exacerbation with a proBNP of 5599. The patient is currently improving on Lasix. She is lying in bed, slightly dyspneic but in no immediate distress on 3 L nasal cannula O2. We agree with current management. 3. New onset atrial fibrillation. Currently on a Cardizem drip with rate control. 4. Hypertension 174/51 today. We agree with antihypertensives as ordered. 5. Deep vein thrombosis risk. We agree with the SCDs as ordered. 6. We will follow along with you and make further recommendations pending outcomes. The above reflects the history and exam and assessment and plan of Dr. Kimble. Dictated by CLAUDIA Rice for Laci Kimble MD
== END 2017-01-02 22:00 | disposition short-term general hospital (02) | DRG 291 ==
LOC: ED 00:19 → EDIPHOLD 03:04 → 3N 01-02 12:33
PROVIDERS: ATTEND Internal Medicine
DX: I13.0 Hypertensive heart and chronic kidney disease with heart failure and stage 1 through stage 4 chronic kidney disease, or unspecified chronic kidney disease (principal); I50.33 Acute on chronic diastolic (congestive) heart failure; C92.10 Chronic myeloid leukemia, BCR/ABL-positive, not having achieved remission; I27.2 Other secondary pulmonary hypertension; I49.5 Sick sinus syndrome; I08.1 Rheumatic disorders of both mitral and tricuspid valves; I48.91 Unspecified atrial fibrillation; N18.3 Chronic kidney disease, stage 3 (moderate); Z90.49 Acquired absence of other specified parts of digestive tract; Z79.899 Other long term (current) drug therapy; Z79.51 Long term (current) use of inhaled steroids
CPT/HCPCS: 36415; 51702; 71010; 78452; 80048; 80053; 81001; 82550; 83735; 83880; 84484; 85025; 85027; 85379; 85610; 85730; 87081; 87430; 93005; 93017; 94761; 96374; 96375; 96376; A9500; J0280; J1650; J1940; J7030; 94640-76; J0820

== ENCOUNTER 2018-11-12 10:23 | Inpatient (IN) ==
[2018-11-12] MEDS ORDERED: LASIX 100 MG in NS 90 ML IV SCH (14:15)
[2018-11-12] MEDS ORDERED: NS 250 ML ONE (14:26)
[2018-11-12] MEDS ORDERED: ZAROXOLYN PO ONE (14:35)
--- NOTE | 2018-11-12 14:36 | EKG Report ---
Test Performed on : 11/12/2018 2:26:30 PM Test Reason : CHF Blood Pressure : / mmHG Vent. Rate : 080 BPM Atrial Rate : 080 BPM P-R Int : 154 ms QRS Dur : 150 ms QT Int : 440 ms P-R-T Axes : 080 -84 080 degrees QTc Int : 507 ms AV dual-paced rhythm Abnormal ECG When compared with ECG of 01-JAN-2017 00:29, The pacemaker is new Confirmed by Brady REESE, Aaron Garay ([id number]) on 11/13/2018 4:30:46 PM
--- NOTE | 2018-11-12 14:37 | Diag Imaging Result Doc PS360 ---
CHEST-PORTABLE - 11/12/2018 INDICATION: CHF COMPARISON: 09/27/2018 FINDINGS: Stable severe right hemidiaphragm elevation. Stable biventricular pacemaker. Stable cardiomegaly and pulmonary vascular congestion. There are new hazy interstitial infiltrates bilaterally compatible with pulmonary edema. There is some increasing linear atelectasis in the right lung base. IMPRESSION: 1. Significant worsening in pulmonary edema. 2. Worsening linear atelectasis or infiltrate in the right lung base. Electronically signed by Mark Lowery 11/12/2018 2:35 PM
[2018-11-12] MEDS ORDERED: VENTOLIN HFA INH PRN (15:07)
[2018-11-12 16:03] LABS: BASO# 0.02 X1000 (0.0-0.2); BASO% 0.2 % (0.0-0.8); EOS# 0.08 X1000 (0.0-0.7); EOS% 0.7 % (0.0-10.0); HEMATOCRIT 32.2 % (37.0-47.0); HEMOGLOBIN 10.3 g/dL (12.0-16.0); IMM GRAN# 0.03 X1000 (0.0-0.04); IMM GRAN% 0.2 % (0.0-0.5); LYMPH# 0.79 X1000 (1.2-3.4); LYMPH% 6.5 % (20.5-51.1); MCV 87.5 FL (81-99); MONO# 0.86 X1000 (0.11-0.59); MPV 11.6 FL (7.4-10.4); NEUT# 10.45 X1000 (1.4-6.5); NEUT% 85.4 % (42.2-75.2); PLT 233 X1000 (130-400); RBC 3.68 XMIL (4.2-5.4); RDW 19.4 % (11.5-14.5); WBC 12.23 X1000 (4.8-10.8)
[2018-11-12 16:05] LABS: INR 0.98; PROTIME 13.7 Seconds (11.0-16.0)
[2018-11-12 16:06] LABS: PTT 27.4 Seconds (22.3-41.8)
[2018-11-12 16:17] LABS: URINE SOURCE CATH
[2018-11-12 16:23] LABS: BILIRUBIN URINE NEGATIVE (NEGATIVE); BLOOD URINE NEGATIVE (NEGATIVE); COLOR YELLOW; GLUCOSE URINE NEGATIVE (NEGATIVE); KETONE URINE NEGATIVE (NEGATIVE); LEUKOCYTES URINE NEGATIVE (NEGATIVE); NITRITE URINE NEGATIVE (NEGATIVE); PH URINE 6.5; PROTEIN URINE 70 mg/dL (NEGATIVE); SP GRAVITY URINE 1.009; TURBIDITY URINE CLEAR (CLEAR); UR EPITHELIAL CELLS <10 /HPF (<10); URINE BACTERIA NEGATIVE /HPF; URINE RBC <10 /HPF (<10); URINE WBC <10 /HPF (<10); UROBILINOGEN URINE NORMAL (NORMAL)
[2018-11-12 16:29] LABS: ALB/GLOB RATIO 1.7; ALBUMIN 4.3 g/dL (3.5-5.0); CALCIUM 10.1 mg/dL (8.8-10.2); CREATININE 1.9 mg/dL (0.5-0.9); MAGNESIUM 2.3 mg/dL (1.5-2.7); POTASSIUM 4.8 mmol/L (3.5-5.1); TOTAL BILIRUBIN 0.58 mg/dL (0.20-1.00); TOTAL PROTEIN 6.9 g/dL (6.3-8.3)
[2018-11-12 16:47] LABS: LYMPHS 3 % (21-51); MONO 3 % (1-9); SEGS 94 % (42-75)
[2018-11-12] MEDS: APRESOLINE PO SCH (16:52)
[2018-11-12] MEDS: LASIX 100 MG in NS 90 ML IV SCH (16:52)
--- NOTE | 2018-11-12 18:51 | HISTORY AND PHYSICAL ---
SOLAR PROJECT ENGINEER: Rl Browning MD. PRIMARY CARE PHYSICIAN: Bo Bowman MD. CHIEF COMPLAINT: Shortness of breath x1 month. She was a direct admit from Dr. Rl Browning's office. HISTORY OF PRESENT ILLNESS: Ms. Estrada is a 78-year-old female who carries a past medical history of coronary artery disease, diastolic heart failure, pulmonary edema on supplemental O2, hypertension, peripheral edema, chronic kidney disease, ulcerative colitis, breast cancer, chronic leukemia in remission, GI bleeding secondary to anticoagulation, pacemaker secondary to sick sinus syndrome, atrial fibrillation, proximal mitral regurgitation. The patient reported to Dr. Rl Browning's office. She reported a 15-pound weight gain since March 2018. In May, she suffered from shingles, got those cleared up, had another round of shingles in September, and stated those have been treated. She states since that time she feels like she has gone downhill. She reports shortness of breath x1 month with continued pitting edema despite taking her diuretics. She states she only rarely drinks sodas. Her last soft drink was 1 week ago. She has no extra salt and avoids canned foods. She also reported abdominal fullness, easy satiety. She denies any chest pain, palpitations, fever, chills, cough, headache, nausea, vomiting, or diarrhea. She is being admitted to [facility], started on IV Lasix. She will receive a PICC line as well as a Carrasco catheter, continue on her supplemental O2, and we will continue to trend her laboratory data. PAST MEDICAL HISTORY: 1. Sick sinus syndrome status post permanent pacemaker. 2. Paroxysmal atrial fibrillation, not on anticoagulation, secondary to GI bleed. 3. GI bleed, secondary to anticoagulation. 4. Mitral regurgitation. 5. CAD. 6. Diastolic congestive heart failure. 7. Pulmonary edema. 8. Peripheral edema. 9. Chronic kidney disease. 10. Diverticulitis. 11. Breast cancer. 12. Chronic leukemia, in remission. 13. Anemia. 14. Obesity. 15. Last echocardiogram on 11/02/2016 showed an EF of 70% and a pulmonary systolic pressure of 80 to 85 mmHg. PAST SURGICAL HISTORY: 1. Permanent pacemaker placement. 2. Hysterectomy. 3. Partial colectomy for polyp issues. SOCIAL HISTORY: The patient denies any alcohol, tobacco, or illicit drug use. She is a . She lives alone. FAMILY HISTORY: Noncontributory. HOME MEDICATIONS: 1. Ventolin inhaler 1 each inhaled daily. 2. Symbicort 160-4.5 mcg inhaler 1 each inhaled b.i.d. 3. Vitamin B12 3000 mcg p.o. daily. 4. Flonase 1 spray nasal q.a.m. 5. Lasix 40 mg p.o. q.a.m. 6. Hydralazine 50 mg p.o. t.i.d. 7. Reglan 5 mg p.o. daily. 8. Protonix 40 mg p.o. daily. 9. MiraLAX 17 g p.o. daily. 10. Effexor XR 37.5 mg p.o. daily. ALLERGIES: No known drug allergies. PHYSICAL EXAMINATION: VITAL SIGNS: Temperature is 97.9 degrees, heart rate 80, respirations 14, blood pressure 164/57, O2 is 98% on 4 L nasal cannula. GENERAL: Ms. Estrada is a pleasant, 78-year-old female who is somewhat short of breath lying in bed, but in no acute distress. HEENT: Atraumatic, normocephalic. PERRL. NECK: Supple. Trachea midline. CARDIOVASCULAR: S1, S2 appreciated. Cannot appreciate any murmurs, gallops, or rubs. RESPIRATORY: Complaints of shortness of breath. No rhonchi or wheezes noted. Bilaterally decreased in the bases. GASTROINTESTINAL: Soft, nontender, nondistended. Positive bowel sounds, 4 quadrants. EXTREMITIES: Bilateral lower extremities 2 to 3+ pitting edema. It is hard to assess pedal pulses secondary to edema. NEUROLOGIC: No focal deficits noted. The patient is alert and oriented x4. DIAGNOSTIC DATA: Chest x-ray pending. Laboratory data pending. ASSESSMENT AND PLAN: 1. Cor pulmonale versus acute diastolic heart failure. We will continue with IV Lasix. We will check a CBC, CK profile, CMP, magnesium, proBNP, coagulation studies, troponin. Continue IV Lasix, Zaroxolyn, and hydralazine. Continue to be followed by Dr. Rl Browning as well as consult for PICC line. We will place a Carrasco catheter. Strict I and O's and daily weights. Monitor on telemetry. She is currently 100% AV paced. 2. Chronic myelogenous leukemia, in remission. 3. Chronic renal insufficiency, awaiting labs. 4. Gastrointestinal bleed in the past, secondary to anticoagulation. 5. Atrial fibrillation. The patient is 100% atrial and ventricular paced. Continue to monitor on telemetry. 6. Sick sinus syndrome, status post pacemaker placement. 7. Mitral regurgitation. 8. Coronary artery disease. No chest pain. 9. Anemia. The patient has orders from Dr. Kimble's office for IV iron infusion. 10. Obesity. The patient has been educated on diet and exercise. She currently has no exercise regimen. 11. Further recommendation to follow physician evaluation, laboratory, and diagnostic data. Dictated by CLAUDIA Kim for Barney Jefferson MD cc: MD Bo Sweet MD Peter Johnson, MD MTDD
[2018-11-12] MEDS: SYMBICORT 160/4.5 MICROGM INHALER INH SCH (20:14)
[2018-11-12] MEDS: XOPENEX NEB INH SCH (20:14)
[2018-11-12] MEDS: ROCEPHIN 1 GM in NS 50 ML IV SCH (21:49)
[2018-11-13] MEDS: XOPENEX NEB INH SCH ×5 (00:41→21:28)
--- NOTE | 2018-11-13 01:03 | HISTORY AND PHYSICAL ---
ADDENDUM: Seen in conjunction with Agnieszka Ascencio. This is a direct admission from Dr. Rl Browning. A pleasant, 78-year-old female with CML and congestive heart failure, presenting with progressive dyspnea on exertion and lower extremity edema at least for the last week. She was seen in clinic today per Dr. Browning and had decompensated heart failure, so she was admitted for treatment. Our workup here showed CHF, and she will be getting treatment as such for that purpose. Her lung exam, she does not look to be in any distress, but she has rales at the bases, possibly an early infiltrate, so we will continue to follow. Continue diuretics along with the strict ins/outs. Continue to monitor closely. This is a [id number] encounter note with Agnieszka Ascencio. cc: Barney Jefferson MD MTDD
[2018-11-13 05:17] LABS: BASO# 0.02 X1000 (0.0-0.2); BASO% 0.2 % (0.0-0.8); EOS# 0.12 X1000 (0.0-0.7); EOS% 1.1 % (0.0-10.0); HEMATOCRIT 29.3 % (37.0-47.0); HEMOGLOBIN 9.1 g/dL (12.0-16.0); LYMPH# 0.48 X1000 (1.2-3.4); LYMPH% 4.5 % (20.5-51.1); MCH 27.5 PG (27-31); MCHC 31.1 g/dL (33-37); MCV 88.5 FL (81-99); MONO# 0.85 X1000 (0.11-0.59); MPV 12.6 FL (7.4-10.4); NEUT# 9.13 X1000 (1.4-6.5); NEUT% 86.2 % (42.2-75.2); PLT 210 X1000 (130-400); RBC 3.31 XMIL (4.2-5.4); RDW 19.3 % (11.5-14.5)
[2018-11-13 05:29] LABS: ALB/GLOB RATIO 1.3; ALBUMIN 3.6 g/dL (3.5-5.0); CALCIUM 9.4 mg/dL (8.8-10.2); CREATININE 2.1 mg/dL (0.5-0.9); MAGNESIUM 2.3 mg/dL (1.5-2.7); POTASSIUM 4.4 mmol/L (3.5-5.1); TOTAL BILIRUBIN 0.48 mg/dL (0.20-1.00); TOTAL PROTEIN 6.4 g/dL (6.3-8.3)
[2018-11-13] MEDS: PROTONIX PO SCH (06:31)
[2018-11-13 06:39] LABS: BANDS 1 % (0-1); EOS 1 % (1-10); LYMPHS 4 % (21-51); MONO 6 % (1-9); SEGS 88 % (42-75)
[2018-11-13] MEDS: SYMBICORT 160/4.5 MICROGM INHALER INH SCH ×2 (08:04→19:30)
[2018-11-13] MEDS: VITAMIN B-12 PO SCH (08:11)
[2018-11-13] MEDS: MIRALAX PO SCH (08:11)
[2018-11-13] MEDS: APRESOLINE PO SCH ×3 (08:11→21:39)
[2018-11-13] MEDS: EFFEXOR XR PO SCH (08:11)
--- NOTE | 2018-11-13 08:32 | Diag Imaging Result Doc PS360 ---
EXAM: CHEST-PORTABLE INDICATION: follow up TECHNIQUE: One view COMPARISON: 11/12/2018 FINDINGS: Pulmonary venous congestion and interstitial infiltrates most compatible with pulmonary edema are approximately stable. There is stable elevation of the right hemidiaphragm. There is stable right basilar atelectasis. No new consolidation is identified. Cardiac silhouette is stable. IMPRESSION: Grossly stable chest. Electronically signed by Cachorro Renee 11/13/2018 8:30 AM
[2018-11-13] MEDS ORDERED: RITALIN PO SCH (09:00)
[2018-11-13] MEDS: LASIX 100 MG in NS 90 ML IV SCH (11:02)
[2018-11-13] MEDS ORDERED: VENOFER 200 MG in NS 150 ML IV ONE (13:50)
[2018-11-13] MEDS: NS NEB INH SCH (15:10)
--- NOTE | 2018-11-13 16:14 | PROGRESS NOTE ---
DATE: 11/13/2018 SUBJECTIVE: Patient has no focal complaints. OBJECTIVE: Vital Signs: Blood pressure 153/67, heart rate of 82, respiratory rate of 16, temperature 93 degrees, satting 100% on 4 L. Cardiovascular: Regular rate and rhythm. Pulmonary: Bilateral breath sounds. Clear to auscultation. GI: Soft, nontender, nondistended. Bowel sounds are positive. She still has some rales at the bases. Extremities: She still has 2+ pitting edema on her lower extremities. LABORATORY DATA: White count is 10, hemoglobin and hematocrit 9 and 29, platelets 210. BUN and creatinine are 70 and 2.1. Her troponin is mildly elevated at 0.173, but she is 78 with a creatinine of 2. X-RAYS: Her chest x-ray shows pulmonary edema, which is stable. PROBLEM LIST: 1. Acute systolic heart failure exacerbation. We will continue diuresis per Dr. Rl Browning. She is on a Lasix drip. It also looks like he has adjusted her medications. She is on isosorbide and hydralazine. Overall she has improved. Urine output has been about 1500 recorded. Continue current measures. 2. Chronic myelogenous leukemia. She is on her medications. 3. Atrial fibrillation. She is atrioventricular paced. Continue to monitor. 4. Disposition: Pending clinical status; overall, though, I think she is doing fairly well. Discharge will be per Cardiology Service in maybe another 1 to 2 days. Continue to follow. Additionally she has been placed on Rocephin for putative pneumonia. Her chest x-ray looks stable; we may of course stabilize her. cc: Barney Jefferson MD
--- NOTE | 2018-11-13 16:55 | CARDIOLOGY PROGRESS NOTE ---
DATE: 11/13/2018 SUBJECTIVE: Ms. Estrada reports she is doing slightly better. She is sitting up on the side of the bed. She has no shortness of breath, no palpitations. OBJECTIVE: She is afebrile. Her heart rate is 82. Her blood pressure is 153/67 and seems like most have been in the 140s to 160s. Her I's and O's appear to be negative around 1200 mL, but she has limited data available at this time. Cardiovascular: She sounds to be in a regular rate and rhythm. She has a 2/6 systolic murmur best heard at the left upper sternal border. She has 1+ bilateral lower extremity edema and warm and well perfused lower extremities. Her chest exam is notable for mild rales in the left base with reduced breath sounds in the right base. She has no increased work of breathing. Her abdomen is soft and nontender. DIAGNOSTIC DATA: White count is 10.6, hematocrit 29, platelet count is 210. She has 88% neutrophils, 1% bands. Sodium is 139, potassium is 4.4, BUN is 70, creatinine 2.1 which is roughly stable from yesterday. She has a low level troponinemia with a peak of 0.173. ProBNP is 22,948. ASSESSMENT: Ms. Estrada is a 78-year-old female who presented with predominantly right-sided heart failure to the office. PLAN: I would continue her on the Lasix drip. We will recheck labs in the morning. We may consider an escalation in her diuretics with addition of some metolazone again tomorrow, but presently I would hold off of that. Her last echocardiogram we have on file was from 10/2016, and that showed a normal ejection fraction with marked pulmonary hypertension. We may consider repeating a study on Thursday. I will add in a low dose of nitrate to her regimen with ISDN 5 t.i.d. to start with. cc: Rl Browning MD
[2018-11-13] MEDS ORDERED: ISORDIL PO SCH (17:00)
[2018-11-13] MEDS: ISORDIL PO SCH (21:39)
[2018-11-13] MEDS: PATIENT'S OWN MED PO SCH (21:40)
[2018-11-13] MEDS: ZYLOPRIM PO SCH (21:40)
[2018-11-13] MEDS: ROCEPHIN 1 GM in NS 50 ML IV SCH (21:40)
[2018-11-14] MEDS: XOPENEX NEB INH SCH ×4 (03:01→20:41)
[2018-11-14] MEDS: PROTONIX PO SCH ×2 (05:57→06:17)
[2018-11-14] MEDS: LASIX 100 MG in NS 90 ML IV SCH ×2 (05:58→06:17)
[2018-11-14] MEDS: SYMBICORT 160/4.5 MICROGM INHALER INH SCH ×2 (08:06→20:41)
[2018-11-14] MEDS: ISORDIL PO SCH ×3 (10:01→22:11)
[2018-11-14] MEDS: VITAMIN B-12 PO SCH (10:01)
[2018-11-14] MEDS: ZYLOPRIM PO SCH ×2 (10:01→22:10)
[2018-11-14] MEDS: EFFEXOR XR PO SCH (10:01)
[2018-11-14] MEDS: THERA M PLUS PO SCH (10:01)
[2018-11-14] MEDS: PATIENT'S OWN MED PO SCH ×2 (10:02→23:02)
[2018-11-14] MEDS: APRESOLINE PO SCH ×3 (10:02→22:10)
[2018-11-14] MEDS: MIRALAX PO SCH (10:02)
[2018-11-14 11:07] LABS: BASO# 0.02 X1000 (0.0-0.2); BASO% 0.2 % (0.0-0.8); EOS# 0.11 X1000 (0.0-0.7); HEMATOCRIT 30.4 % (37.0-47.0); HEMOGLOBIN 9.4 g/dL (12.0-16.0); IMM GRAN# 0.03 X1000 (0.0-0.04); IMM GRAN% 0.3 % (0.0-0.5); LYMPH% 5.3 % (20.5-51.1); MCH 27.9 PG (27-31); MCHC 30.9 g/dL (33-37); MCV 90.2 FL (81-99); MONO# 0.59 X1000 (0.11-0.59); MONO% 5.2 % (1.7-9.3); MPV 11.7 FL (7.4-10.4); NEUT# 10.07 X1000 (1.4-6.5); PLT 212 X1000 (130-400); RBC 3.37 XMIL (4.2-5.4); RDW 19.4 % (11.5-14.5); WBC 11.42 X1000 (4.8-10.8)
[2018-11-14 11:18] LABS: CALCIUM 9.8 mg/dL (8.8-10.2); CREATININE 2.1 mg/dL (0.5-0.9); MAGNESIUM 2.1 mg/dL (1.5-2.7); POTASSIUM 3.8 mmol/L (3.5-5.1)
[2018-11-14 11:25] LABS: BANDS 2 % (0-1); LYMPHS 2 % (21-51); MONO 2 % (1-9); SEGS 94 % (42-75)
[2018-11-14 11:26] LABS: ANISOCYTOSIS 1+; HYPOCHROM 2+
[2018-11-14] MEDS ORDERED: ZAROXOLYN PO ONE (12:38)
[2018-11-14] MEDS ORDERED: BUPRENEX IV PRN (15:55)
--- NOTE | 2018-11-14 17:40 | PROGRESS NOTE ---
DATE: 11/14/2018 SUBJECTIVE: She looks better. She says she is breathing a bit better. OBJECTIVE: Blood pressure is 137/74, heart rate of 86, respiratory rate 16, temperature is 97.6 degrees. Cardiovascular: Regular rate and rhythm. Patient is doing okay, no major complaints. She is 100% on 4 L which I am not sure why she is on such a hefty O2 requirement. LABORATORY DATA: White count 11, hemoglobin and hematocrit 9 and 30, platelets 212,000, BUN and creatinine are 69 and 2.1 pretty stable. ProBNP is actually gone up not down. PROBLEM LIST: 1. Acute systolic heart failure exacerbation. Will continue diuresis per Dr. Browning. She is on a Lasix drip. He has adjusted some of her medications, added metolazone and will see how things look. 2. Chronic myelogenous leukemia. She is on her chemotherapy, nilotinib, Tasigna which is her chronic medication, will continue to follow. 3. Anemia appears to be stable. 4. Atrial fibrillation, she is atrioventricular paced. 5. Disposition pending cardiology input. Her chest x-ray yesterday showed persistent congestive heart failure type symptoms. Anticipate discharge soon maybe next couple days per Cardiology recommendations. cc: MD ROBYN Sweet
--- NOTE | 2018-11-14 18:31 | CARDIOLOGY PROGRESS NOTE ---
DATE: 11/14/2018 SUBJECTIVE: Ms. Estrada reports she feels a little bit better today and overall feels better compared to presentation. Her breathing has improved. PHYSICAL EXAMINATION: Vital Signs: She is afebrile. Her heart rate is 81. Her blood pressure is 152/65. Her I's and O's over the course of the hospitalization continue to be negative. She appears to be a total net out of 3.4 L. General: Generally, she is in no acute distress. Cardiovascular: She sounds to be in a regular rate and rhythm. She has no obvious murmurs. She has no S3. She has no lower extremity edema. Chest: Has reduced breath sounds and rales in the right base with improvement compared to yesterday. She does have some mild rales diffusely as well. She continues to have some mild bilateral lower extremity edema diffusely. Abdomen: Soft, nontender. She has no obvious organomegaly. Skin: Warm and dry throughout. PERTINENT LABORATORY DATA: She has a white count of 11.4, her hematocrit is 30, her platelet count is 212,000. She has a 894% neutrophils, with 2% bands. She has a sodium of 141, potassium 3.8, BUN 69, creatinine 2.1 which is stable from yesterday. Her proBNP is 24,000 which is roughly stable compared to admission. ASSESSMENT: Ms. sEtrada is a 78-year-old female with right-sided heart failure/cor pulmonale. PLAN: We will continue diuresing her with Lasix. She seems to be net negative and seems to feel better overall. We will give her another dose of metolazone, increase her ISDN up to 10 t.i.d. We will recheck her laboratories in the morning as well as recheck an echo of the patient. cc: Rl Browning MD
[2018-11-14] MEDS: ROCEPHIN 1 GM in NS 50 ML IV SCH (22:13)
[2018-11-15] MEDS: XOPENEX NEB INH SCH ×4 (03:12→21:30)
[2018-11-15] MEDS: LASIX 100 MG in NS 90 ML IV SCH (05:10)
[2018-11-15 05:39] LABS: BASO# 0.04 X1000 (0.0-0.2); BASO% 0.4 % (0.0-0.8); EOS% 1.9 % (0.0-10.0); HEMATOCRIT 29.9 % (37.0-47.0); HEMOGLOBIN 9.3 g/dL (12.0-16.0); IMM GRAN# 0.02 X1000 (0.0-0.04); IMM GRAN% 0.2 % (0.0-0.5); LYMPH% 7.7 % (20.5-51.1); MCH 27.9 PG (27-31); MCHC 31.1 g/dL (33-37); MCV 89.8 FL (81-99); MONO# 0.86 X1000 (0.11-0.59); MONO% 8.2 % (1.7-9.3); MPV 12.4 FL (7.4-10.4); NEUT# 8.51 X1000 (1.4-6.5); NEUT% 81.6 % (42.2-75.2); PLT 196 X1000 (130-400); RBC 3.33 XMIL (4.2-5.4); RDW 19.3 % (11.5-14.5); WBC 10.43 X1000 (4.8-10.8)
[2018-11-15 06:01] LABS: CALCIUM 9.6 mg/dL (8.8-10.2); CREATININE 2.1 mg/dL (0.5-0.9); POTASSIUM 3.5 mmol/L (3.5-5.1)
[2018-11-15] MEDS: PROTONIX PO SCH (06:42)
[2018-11-15] MEDS: SYMBICORT 160/4.5 MICROGM INHALER INH SCH ×2 (08:04→20:03)
[2018-11-15] MEDS: APRESOLINE PO SCH ×3 (09:17→20:18)
[2018-11-15] MEDS: MIRALAX PO SCH (09:17)
[2018-11-15] MEDS: THERA M PLUS PO SCH (09:17)
[2018-11-15] MEDS: ZYLOPRIM PO SCH ×2 (09:17→20:18)
[2018-11-15] MEDS: ISORDIL PO SCH ×3 (09:17→20:17)
[2018-11-15] MEDS: VITAMIN B-12 PO SCH (09:17)
[2018-11-15] MEDS: PATIENT'S OWN MED PO SCH ×2 (09:18→22:12)
[2018-11-15] MEDS: EFFEXOR XR PO SCH (09:18)
--- NOTE | 2018-11-15 13:18 | ECHO REPORT ---
ORDER DATE: 11/15/2018 ECHOCARDIOGRAPHIC MEASUREMENTS: 1. Interventricular septum 1.6. 2. Left ventricular posterior wall 1.4. 3. Diastolic diameter 5.1. 4. Left atrium 4.7. 5. Aorta 3.3. SUMMARY OF 2-DIMENSIONAL IMAGIN. Normal left ventricular cavity size. Concentric left ventricular hypertrophy. Estimated ejection fraction of 55%. 2. Aortic valve leaflets were calcified, trileaflet. Pacing leads were noted in the right chamber. 3. There was moderate to severe mitral annular calcification. Mitral valve leaflets are mildly thickened. Tricuspid valve was normal. Pulmonic valve was normal. 4. There is mild mitral regurgitation. There is diastolic dysfunction. 5. There is moderate tricuspid regurgitation. Peak velocity across the tricuspid valve was 3.9 m/sec. Pulmonary artery systolic pressure of 70 mmHg. There is pulmonary arterial hypertension. 6. Trace pulmonary regurgitation. 7. Peak velocity across the aortic valve was 2.7 m/sec with a mean gradient of 16 mmHg. There is mild aortic stenosis. 8. There is no pericardial effusion or obvious intracardiac mass or thrombus seen. cc: MD Rl Loera MD
[2018-11-15] MEDS ORDERED: ZAROXOLYN PO ONE (13:54)
--- NOTE | 2018-11-15 15:16 | PROGRESS NOTE ---
DATE: 11/15/2018 SUBJECTIVE: The patient is seated on the chair. Not in any obvious distress. OBJECTIVE: Vital Signs: Temperature 98.1 degrees, pulse 80, respirations 18, blood pressure 159/62, oxygen saturation 100%. HEENT: She is atraumatic and normocephalic. Neck: No evidence of jugular venous distention. Cardiovascular: S1 and S2, irregular. Respiratory system: Evidence of rales in the right lung field. Abdomen: Soft, nontender. No masses felt. Extremities: 2+ edema in the lower extremities. Central nervous system: No obvious focal deficits noted. LABORATORY DATA: WBC 10.43, hematocrit 29.9, platelet count 196,000. Sodium 142, potassium 3.5, chloride 92, bicarb 29, BUN 69, creatinine 2.1. ASSESSMENT AND PLAN: 1. Acute systolic congestive heart failure. Monitor intake and output as well as daily weights. Continue diuretics. Cardiology is following. 2. Chronic myelogenous leukemia. Continue chemotherapeutic agent. 3. Anemia. Follow up on hemoglobin and hematocrit. Transfuse packed red blood cells if needed. 4. Atrial fibrillation. Heart rate controlled. 5. Deep vein thrombosis prophylaxis. Lovenox. 6. Gastrointestinal prophylaxis. Proton pump inhibitor. cc: Cristian Be MD
--- NOTE | 2018-11-15 16:05 | CARDIOLOGY PROGRESS NOTE ---
DATE: 11/15/2018 SUBJECTIVE: Ms. Estrada continues to feel better. Her breathing continues to improve. She still has some shortness of breath and lower extremity edema. PHYSICAL EXAMINATION: Vital Signs: Patient is afebrile. Her heart rate is 80, her blood pressure is 159/62. The previous 4 systolics have been in the 100s to 120s. Her I's and O's continue to be negative on the order of around a liter and a half per day. Total output is 4 L over the course of the hospitalization, with 2 voids not measured. General: She is in no acute distress. Cardiovascular: She sounds to be in a regular rate and rhythm. She has a 2/6 systolic murmur best heard at the right upper sternal border. She continues to have some trace to 1+ bilateral lower extremity edema. Chest: Has mild rales in the bilateral bases. No increased work of breathing. Abdomen: Soft, nontender, nondistended. She has no obvious organomegaly. PERTINENT DATA: Echo demonstrated a normal ejection fraction. Mitral annular calcification with no evidence of stenosis. Mild aortic stenosis with a mean gradient of 16. Pulmonary hypertension with an RV systolic pressure of 70. Lab data demonstrates a white count of 10, hematocrit 29, platelet count 196,000. Sodium 142, potassium 3.5 BUN 69, creatinine 2.1, which is stable from yesterday. Her proBNP is 22,000 which is down from yesterday. ASSESSMENT: Ms. Estrada is a 78-year-old female with predominantly right-sided heart failure. PLAN: I will give her a dose of 5 mg of metolazone now. We will stop her Lasix drip this evening, start her on intermittent IV Lasix in the morning at 60 IV b.i.d. We will recheck her electrolytes and BNP in the morning. cc: Rl Browning MD
[2018-11-15] MEDS: ROCEPHIN 1 GM in NS 50 ML IV SCH (20:20)
[2018-11-16] MEDS: XOPENEX NEB INH SCH ×4 (03:36→22:44)
[2018-11-16 06:25] LABS: CALCIUM 9.7 mg/dL (8.8-10.2); CREATININE 1.9 mg/dL (0.5-0.9); MAGNESIUM 2.1 mg/dL (1.5-2.7); POTASSIUM 3.1 mmol/L (3.5-5.1)
[2018-11-16] MEDS: PROTONIX PO SCH (06:38)
[2018-11-16] MEDS ORDERED: POTASSIUM CHLORIDE 20% LIQUID PO ONE (07:05)
[2018-11-16] MEDS: LASIX IV SCH ×2 (08:04→21:19)
[2018-11-16] MEDS: APRESOLINE PO SCH ×3 (08:04→21:20)
[2018-11-16] MEDS: EFFEXOR XR PO SCH (08:04)
[2018-11-16] MEDS: MIRALAX PO SCH (08:05)
[2018-11-16] MEDS: THERA M PLUS PO SCH (08:05)
[2018-11-16] MEDS: ZYLOPRIM PO SCH ×2 (08:05→21:20)
[2018-11-16] MEDS: ISORDIL PO SCH ×3 (08:05→21:20)
[2018-11-16] MEDS: LOVENOX SUBQ SCH (08:05)
[2018-11-16] MEDS: VITAMIN B-12 PO SCH (08:05)
[2018-11-16] MEDS: PATIENT'S OWN MED PO SCH ×2 (08:06→21:21)
[2018-11-16] MEDS: SYMBICORT 160/4.5 MICROGM INHALER INH SCH ×2 (08:18→19:52)
[2018-11-16] MEDS: NS NEB INH SCH ×2 (08:19→15:31)
--- NOTE | 2018-11-16 08:28 | CARDIOLOGY PROGRESS NOTE ---
DATE: 11/16/2018 SUBJECTIVE: Ms. Estrada reports she feels a little bit better. She denies any orthopnea. PHYSICAL EXAMINATION: Vital Signs: She is afebrile. Her heart rate is 80, blood pressure 126/74. Her Is and Os continue to be negative over the course of the hospitalization. She was given 5 mg of metolazone yesterday. Her accumulative Is and Os are negative around 5 L with two voids not measured. General: She is in no acute distress. Cardiovascular: She sounds to be in a regular rate and rhythm. She has a 2/6 systolic murmur at the right upper sternal border. She has trace to 1+ bilateral lower extremity edema. Warm and well perfused extremities. Chest Examination: Notable for decreased breath sounds in the right base with rales in the bilateral bases. No increased work of breathing. Abdomen: Soft, nontender. Pertinent Data: Sodium 144, potassium is 3.1, BUN 75, creatinine is 1.9 which is slightly improved on the creatinine from yesterday. Her proBNP is 21,434 which has decreased from her peak of around 25,000. ASSESSMENT: Ms. Estrada is a 78-year-old female who presented with pulmonary hypertension and volume overload. PLAN: I have repleted her potassium. We switched her over to intermittent Lasix at a dose of 60 IV b.i.d. We will see if we can continue to effect volume removal with this regimen. We will ensure she has a basic metabolic panel in the morning. I will order a chest x-ray today to reevaluate her lungs. cc: Rl Browning MD
--- NOTE | 2018-11-16 08:44 | Diag Imaging Result Doc PS360 ---
EXAM: CHEST-PORTABLE HISTORY: dyspnea TECHNIQUE: Portable chest COMPARISON: 11/13/2018 FINDINGS: The right hemidiaphragm is elevated. There is atelectasis or infiltrates in the right base with a small effusion. Heart is mildly prominent and there is a left-sided pacemaker. Mild pulmonary edema persists. IMPRESSION: Mild interval improvement. Electronically signed by Jeremy Menendez 11/16/2018 8:42 AM
--- NOTE | 2018-11-16 13:35 | PROGRESS NOTE ---
DATE: 11/16/2018 SUBJECTIVE: The patient has no major issues. Not in any distress. OBJECTIVE: Blood pressure 106/58, heart rate of 80, respiratory rate 17, temperature 98.3. Oxygen saturation 100% on 4 L. Cardiovascular: Regular rate and rhythm. Pulmonary: Bilateral breath sounds clear to auscultation. GI was soft, nontender, nondistended. Bowel sounds are positive. Her peripheral extremities show much diminished fluid. LABORATORY DATA: White count: None today. Potassium is 3.1. BUN nd creatinine of 75 and 1.9. Her proBNP is 21,434, which is a small decrease. IMPRESSION: 1. Acute systolic congestive heart failure exacerbation. She is on Lasix. She is now on bolus dosing. Cardiology is primarily managing. 2. Chronic myelogenous leukemia. She is on her outpatient tyrosine kinase inhibitor. 3. Anemia. Hemoglobin and hematocrit stable. 4. Atrial fibrillation. She is rate controlled. She is on deep venous thrombosis prophylaxis. There may have been bleeding issues, I think. She is getting Rocephin for unclear etiology. I am not sure it is because of the possible pneumonia. She had some infiltrates in the right base, so she is on Rocephin right now. This will be day 5. I would consider completing 2 more days and then we can stop. DISPOSITION: Per Cardiology, I think she is stable for the floor. Cardiology is primarily managing, so we will follow. But, I think if that is needed, we may have to move her. cc: Barney Jefferson MD
[2018-11-16] MEDS: ROCEPHIN 1 GM in NS 50 ML IV SCH (21:20)
[2018-11-17] MEDS: XOPENEX NEB INH SCH ×4 (03:25→21:15)
[2018-11-17] MEDS: PROTONIX PO SCH ×2 (05:37→06:01)
[2018-11-17 06:49] LABS: CALCIUM 9.5 mg/dL (8.8-10.2); CREATININE 1.9 mg/dL (0.5-0.9); MAGNESIUM 2.2 mg/dL (1.5-2.7); POTASSIUM 3.8 mmol/L (3.5-5.1)
[2018-11-17] MEDS: ISORDIL PO SCH ×3 (08:34→21:00)
[2018-11-17] MEDS: EFFEXOR XR PO SCH (08:34)
[2018-11-17] MEDS: THERA M PLUS PO SCH (08:34)
[2018-11-17] MEDS: MIRALAX PO SCH (08:34)
[2018-11-17] MEDS: APRESOLINE PO SCH ×3 (08:35→21:00)
[2018-11-17] MEDS: VITAMIN B-12 PO SCH (08:35)
[2018-11-17] MEDS: ZYLOPRIM PO SCH ×2 (08:35→21:00)
[2018-11-17] MEDS: PATIENT'S OWN MED PO SCH ×2 (08:35→21:00)
[2018-11-17] MEDS: LASIX IV SCH ×2 (08:36→21:28)
[2018-11-17] MEDS: LOVENOX SUBQ SCH ×2 (08:36→08:44)
[2018-11-17] MEDS: SYMBICORT 160/4.5 MICROGM INHALER INH SCH ×2 (10:42→21:15)
[2018-11-17] MEDS: ZAROXOLYN PO SCH (12:48)
[2018-11-17] MEDS ORDERED: POTASSIUM CHLORIDE 20% LIQUID PO ONE (13:18)
[2018-11-17] MEDS ORDERED: ZAROXOLYN PO ONE (20:30)
[2018-11-17] MEDS: ROCEPHIN 1 GM in NS 50 ML IV SCH (21:01)
--- NOTE | 2018-11-17 23:54 | PROGRESS NOTE ---
DATE: 11/17/2018 INTERVAL HISTORY: The patient's O2 requirement is down to her home 3 to 4 L. No further dyspnea. Still some lower extremity edema. No new complaints. No acute events overnight. REVIEW OF SYSTEMS: Twelve-point review of systems negative except as per interval history. LABORATORIES: Sodium 142, potassium 3.8, chloride 91, bicarb 38, BUN 78, creatinine 1.9, glucose 119. IMAGING: Chest x-ray yesterday with improvement in right base atelectasis and effusion, still with mild pulmonary edema. On review of previous chest x-rays, this appears to be persistent since 2016. VITAL SIGNS: T-max 98.2 degrees, pulse 82, respirations 18, blood pressure 164/75, O2 saturation 100% on 4 L by nasal cannula. PHYSICAL EXAMINATION: General: No acute distress. Vital signs: As above. HEENT: Normocephalic, atraumatic. Moist mucous membranes. Neck: No cervical adenopathy. Cardiovascular: Regular rate. No gallops identified. Pulmonary: Largely clear to auscultation bilaterally. Abdomen: Soft, nontender, nondistended. Bowel sounds positive. Extremities: Peripheral pulses decreased but intact. 2+ pitting edema bilaterally. Neurologic: Cranial nerves grossly intact. No focal deficits identified. Psychiatric: Normal mood and affect. Awake, alert, and oriented x3. Skin: No new rashes or lesions identified. ASSESSMENT AND PLAN: 1. Acute on chronic systolic congestive heart failure. Remains on Lasix as per Cardiology. No further dyspnea, lower extremity edema markedly improved, and saturating extremely well on her home oxygen. Likely near or at maximum benefit of hospitalization. Awaiting final Cardiology recommendations. 2. Chronic myelogenous leukemia. The patient is on her home tyrosine kinase inhibitor. 3. Atrial fibrillation. Has been largely normal sinus rhythm during this hospitalization and rate controlled when she is in atrial fibrillation. 4. Anemia. Blood counts stable. Likely anemia of chronic disease related to her chronic leukemia. 5. Questionable pneumonia in a patient with linear atelectasis versus less likely infiltrate at the right lung base. On admission, was placed on Rocephin. Favor atelectasis and mild pulmonary edema, but will complete course of Rocephin for possible community-acquired pneumonia. Today is day 6 of 7. Can be discontinued after tomorrow. 6. Deep vein thrombosis prophylaxis. Lovenox. 7. Disposition: Discharge home when Cardiology satisfied with diuresis.
[2018-11-18] MEDS: XOPENEX NEB INH SCH ×4 (03:20→21:17)
--- NOTE | 2018-11-18 04:36 | CARDIOLOGY PROGRESS NOTE ---
DATE: 11/17/2018 SUBJECTIVE: Ms. Estrada has not had any issues overnight. She is not having any shortness of breath. PHYSICAL EXAMINATION: Vital Signs: She is afebrile, heart rate 82, blood pressure 164/75. General: Is and Os appear to be negative over the course of the hospitalization. She has a total out of 5.4 L. Generally, she is in no acute distress. Cardiovascular: She is in a regular rate and rhythm. She has a 2/6 systolic murmur at the right upper sternal border. She has 1+ bilateral lower extremity edema. Chest: Examination is clear bilaterally. She has no increased work of breathing. Abdomen: Soft, nontender, nondistended. PERTINENT DATA: Her BUN and creatinine are 78 and 1.9. Yesterday, they were 75 and 1.9. Magnesium 2.2, potassium 3.8. ASSESSMENT: Ms. Estrada is a 78-year-old female with a history of heart failure. PLAN: I will increase her Lasix to 80 IV b.i.d. I will give her a dose of metolazone tonight. We will check CMP and BNP in the morning. cc: Rl Browning MD
[2018-11-18 05:20] LABS: BASO# 0.03 X1000 (0.0-0.2); BASO% 0.3 % (0.0-0.8); EOS# 0.18 X1000 (0.0-0.7); EOS% 1.9 % (0.0-10.0); HEMATOCRIT 30.7 % (37.0-47.0); HEMOGLOBIN 9.5 g/dL (12.0-16.0); IMM GRAN# 0.02 X1000 (0.0-0.04); IMM GRAN% 0.2 % (0.0-0.5); LYMPH# 0.69 X1000 (1.2-3.4); LYMPH% 7.1 % (20.5-51.1); MCH 28.1 PG (27-31); MCHC 30.9 g/dL (33-37); MCV 90.8 FL (81-99); MONO# 0.85 X1000 (0.11-0.59); MONO% 8.8 % (1.7-9.3); MPV 11.9 FL (7.4-10.4); NEUT# 7.89 X1000 (1.4-6.5); NEUT% 81.7 % (42.2-75.2); PLT 172 X1000 (130-400); RBC 3.38 XMIL (4.2-5.4); WBC 9.66 X1000 (4.8-10.8)
[2018-11-18 05:39] LABS: ALB/GLOB RATIO 1.6; ALBUMIN 4.1 g/dL (3.5-5.0); CREATININE 1.7 mg/dL (0.5-0.9); POTASSIUM 4.1 mmol/L (3.5-5.1); TOTAL BILIRUBIN 0.36 mg/dL (0.20-1.00); TOTAL PROTEIN 6.6 g/dL (6.3-8.3)
[2018-11-18] MEDS: PROTONIX PO SCH (06:02)
[2018-11-18] MEDS: LASIX IV SCH ×3 (08:33→21:03)
[2018-11-18] MEDS: EFFEXOR XR PO SCH (08:34)
[2018-11-18] MEDS: ISORDIL PO SCH ×3 (08:34→21:03)
[2018-11-18] MEDS: ZYLOPRIM PO SCH ×2 (08:34→21:03)
[2018-11-18] MEDS: LOVENOX SUBQ SCH (08:34)
[2018-11-18] MEDS: MIRALAX PO SCH (08:34)
[2018-11-18] MEDS: VITAMIN B-12 PO SCH (08:34)
[2018-11-18] MEDS: THERA M PLUS PO SCH (08:34)
[2018-11-18] MEDS: APRESOLINE PO SCH ×3 (08:34→21:03)
[2018-11-18] MEDS: SYMBICORT 160/4.5 MICROGM INHALER INH SCH ×2 (10:43→21:17)
[2018-11-18] MEDS: PATIENT'S OWN MED PO SCH ×2 (12:09→21:04)
--- NOTE | 2018-11-18 14:38 | PROGRESS NOTE ---
DATE: 11/18/2018 OVERNIGHT EVENTS: No acute events. She was saturating 93% to 95% on 4 L nasal cannula, which is her home oxygenation. SUBJECTIVE: She is feeling fine. Denies any chest pain. She states she was able to transfer herself from bed to chair without getting unduly short of breath. She still has bilateral lower extremity edema, which is better than when she came in. PHYSICAL EXAMINATION: Vital Signs: Temperature 97.7 degrees, pulse 69, blood pressure 146/75, saturating 93% to 95% on 4 L nasal cannula. Input and output suggests -300 mL yesterday. She is so far -5 L. General: Does not appear in any acute distress. HEENT: Oral cavity is moist. Lungs: Air entry bilaterally equal with decreased air entry bilateral infrascapular region, more decreased on the right than left, with inspiratory crackles. No wheeze or rhonchi. HEENT: S1 and S2 normal. Systolic murmur heard in mitral and aortic region. Extremities: Bilateral lower extremity edema extending up to mccartney levels. LUE edema. Abdomen: Soft, nontender. Neurologic: Alert and oriented x3. Labs LABORATORY DATA: Labs suggestive of no leukocytosis, normocytic anemia, chronic kidney disease stage 4, persistently elevated proBNP. MICROBIOLOGY: Blood culture no growth to date. IMAGING: No new imaging data. ASSESSMENT AND PLAN: 1. Acute on chronic diastolic congestive heart failure exacerbation. Continue intravenous Lasix and p.o. metolazone. Continue home oxygen. The plan will be to eventually transition her to p.o. Lasix at the time of discharge. 2. Acute hypoxic respiratory failure on chronic hypoxic respiratory failure. Continue oxygenation. At home she is on 4 L to maintain saturation more than 92%. This is likely because of her heart failure exacerbation and pneumonia. Continue intravenous ceftriaxone. Last day would be 11/18/2018. 3. History of coronary artery disease. Continue patient on home hydralazine and isosorbide for her history of essential hypertension. 4. Anemia of chronic disease, stable. No need of transfusion. Continue patient on multivitamins and vitamin B12. 5. History of atrial fibrillation, status post pacemaker. The patient is not on anticoagulation considering history of gastrointestinal bleed. Currently rate well controlled. 6. History of chronic kidney disease stage 4, currently stable. 7. History of chronic myelogenous leukemia, in remission. Continue her home tyrosine kinase inhibitors. 8. LUE swelling: Follow up US to rule out PICC line associated DVT. 8. Deep venous thrombosis prophylaxis. Lovenox. DISPOSITION: The patient remains inside the [facility] for persistent shortness of breath and need for intravenous Lasix. The plan is to eventually transition her to p.o. Lasix, hopefully tomorrow. Later on, she may need rehab depending on how she does with physical therapy. Plan of care was discussed with her. All of her questions have been answered. cc: Michael Alexandre MD MTDD
[2018-11-18] MEDS: ROCEPHIN 1 GM in NS 50 ML IV SCH (21:03)
[2018-11-19] MEDS: XOPENEX NEB INH SCH ×4 (03:15→21:00)
[2018-11-19 06:07] LABS: CALCIUM 9.9 mg/dL (8.8-10.2); CREATININE 1.6 mg/dL (0.5-0.9); MAGNESIUM 2.2 mg/dL (1.5-2.7); POTASSIUM 3.7 mmol/L (3.5-5.1)
[2018-11-19] MEDS: PROTONIX PO SCH (06:15)
[2018-11-19] MEDS: ZYLOPRIM PO SCH ×2 (08:17→20:35)
[2018-11-19] MEDS: ISORDIL PO SCH ×3 (08:17→20:35)
[2018-11-19] MEDS: EFFEXOR XR PO SCH (08:17)
[2018-11-19] MEDS: VITAMIN B-12 PO SCH (08:17)
[2018-11-19] MEDS: MIRALAX PO SCH (08:17)
[2018-11-19] MEDS: APRESOLINE PO SCH ×3 (08:18→20:35)
[2018-11-19] MEDS: LOVENOX SUBQ SCH ×2 (08:18→08:25)
[2018-11-19] MEDS: LASIX IV SCH ×3 (08:18→20:34)
[2018-11-19] MEDS: PATIENT'S OWN MED PO SCH ×2 (08:18→20:36)
[2018-11-19] MEDS: THERA M PLUS PO SCH (08:18)
[2018-11-19] MEDS: SYMBICORT 160/4.5 MICROGM INHALER INH SCH ×2 (10:00→21:00)
--- NOTE | 2018-11-19 10:49 | Diag Imaging Result Doc PS360 ---
EXAM: CHEST-PORTABLE HISTORY: Follow up pulomnary edema and infiltrate TECHNIQUE: Portable chest single view COMPARISON: 11/16/2018 FINDINGS: Poor inspiratory effort. The right hemidiaphragm is elevated. There is a left-sided pacemaker. The heart is enlarged and there is vascular distention. There are small pleural effusions. IMPRESSION: Mild interval worsening. Electronically signed by Jeremy Menendez 11/19/2018 10:46 AM
[2018-11-19] MEDS: ZAROXOLYN PO SCH (12:31)
--- NOTE | 2018-11-19 12:52 | CARDIOLOGY PROGRESS NOTE ---
DATE: 11/19/2018 SUBJECTIVE: Ms. Estrada reports she feels better. She is not having any chest pain, her breathing has improved. OBJECTIVE: Vitals: She is afebrile. Heart rate of 90. Her blood pressure is 184/66. Her Is and Os continues to be negative. Her total output is 6.7 L for the course of the hospitalization. General: No acute distress. Cardiovascular: She sounds to be in a regular rate and rhythm. She has no murmurs, no S3. Extremities: She has trace to 1+ bilateral lower extremity edema, and warm and well perfused lower extremities. Chest: Her chest has some mild basilar rales. PERTINENT DATA: Sodium 143, potassium 3.7, BUN is 83, creatinine is 1.6. Creatinine was 2.1 on the . ASSESSMENT: Ms. Estrada is a 78-year-old female with primarily right-sided heart failure. PLAN: She continues to diurese. We have escalated her diuretics to a total of 80 t.i.d. on her Lasix. I will make a dose escalation on her ISDN to 40 mg t.i.d. We will continue with diuresis in this patient. cc: Rl Browning MD
[2018-11-19] MEDS ORDERED: ISORDIL PO SCH (15:00)
[2018-11-20] MEDS: XOPENEX NEB INH SCH ×4 (03:45→21:38)
[2018-11-20 06:33] LABS: CREATININE 1.6 mg/dL (0.5-0.9); MAGNESIUM 2.1 mg/dL (1.5-2.7); POTASSIUM 3.2 mmol/L (3.5-5.1)
[2018-11-20] MEDS: PROTONIX PO SCH (06:33)
[2018-11-20] MEDS: LASIX IV SCH ×3 (08:23→17:19)
[2018-11-20] MEDS: MIRALAX PO SCH (08:23)
[2018-11-20] MEDS: LOVENOX SUBQ SCH ×2 (08:23→08:32)
[2018-11-20] MEDS: EFFEXOR XR PO SCH (08:24)
[2018-11-20] MEDS: VITAMIN B-12 PO SCH (08:24)
[2018-11-20] MEDS: THERA M PLUS PO SCH (08:24)
[2018-11-20] MEDS: APRESOLINE PO SCH ×3 (08:24→20:13)
[2018-11-20] MEDS: PATIENT'S OWN MED PO SCH ×2 (08:24→20:13)
[2018-11-20] MEDS: ZYLOPRIM PO SCH ×2 (08:24→20:13)
[2018-11-20] MEDS: ISORDIL PO SCH ×3 (08:24→20:13)
[2018-11-20] MEDS: SYMBICORT 160/4.5 MICROGM INHALER INH SCH ×2 (09:59→21:00)
[2018-11-20] MEDS: KLOR-CON PO SCH ×3 (11:37→20:13)
[2018-11-20] MEDS ORDERED: CEPACOL SORE THROAT LOZENGE MT PRN (11:50)
--- NOTE | 2018-11-20 13:50 | PROGRESS NOTE ---
DATE: 11/20/2018 OVERNIGHT: No acute events. SUBJECTIVE: Patient feels the same. Denies new chest pain or shortness of breath. It is the same as it has been over the last 48 hours. Denies any increase or decrease in it. We discussed about continuing with intravenous Lasix therapy. She, however, feels that she is getting stronger day by day, and she is happy about it. OBJECTIVE: Vital Signs: Temperature 98 degrees, pulse 78, blood pressure 150/76, saturating 100% on 4 L nasal cannula. General: Does not appear in any acute distress. HEENT: Oral cavity is moist. There is some tonsillar enlargement and erythema of the pharyngeal wall, especially affecting the right side. No tonsillar exudates, though. Neck: I could not appreciate any cervical lymph nodes. Lungs: Air entry bilaterally equal. No wheeze or rhonchi. She has decreased air entry in right infrascapular region with inspiratory crackles in the bilateral infrascapular region. Cardiovascular: S1, S2 normal. She has a pacemaker. Systolic murmur in mitral and aortic region. Extremities: Bilateral lower extremity edema extending up to mccartney levels. Left upper extremity edema. Abdomen: Soft, nontender. Neurologic: Alert, oriented x3. LAB DATA: BMP suggestive of hypokalemia, chronic kidney disease stage IV, consistently elevated proBNP level. IMAGING: Chest x-ray performed yesterday had suggested chronically elevated right dome of diaphragm. On my review, it essentially looks the same as before. ASSESSMENT AND PLAN: 1. Acute on chronic diastolic congestive heart failure exacerbation. Continue intravenous Lasix and oral metolazone. Continue home oxygen to maintain saturation more than 92%. She has 3 kg weight reduction since admission at most. Her shortness of breath has slightly improved. 2. Acute hypoxic respiratory failure and chronic hypoxic respiratory failure. Continue oxygenation to maintain saturation more than 92%. At home, she is on 3 to 4 L of oxygen. This is likely because of her heart failure exacerbation. Her community-acquired pneumonia has been treated adequately with intravenous ceftriaxone. She denies any cough. She does not have leukocytosis. Last day of antibiotics was 11/18/2018. 3. History of coronary artery disease. Continue hydralazine and isosorbide. 4. Anemia of chronic disease, stable. Continue multivitamins, vitamin B 12. 5. History of atrial fibrillation status post pacemaker, not on anticoagulation considering history of gastrointestinal bleed. Currently rate is well controlled. 6. History of chronic kidney disease stage IV, currently stable. 7. History of chronic myelogenous leukemia in remission. Hematology/oncology had seen the patient. 8. Left upper extremity swelling associated with PICC line. Follow up with ultrasound to rule out PICC line-associated deep vein thrombosis. 9. Deep venous thrombosis prophylaxis. Lovenox. 10. Right tonsillar enlargement without any exudate, fever or leukocytosis. We will give her Cepacol lozenges for symptomatic relief. 11. Disposition: The patient remains in [facility] for close monitoring of her respiratory status. Plan of care was discussed with her. All of her questions have been answered. cc: Michael Alexandre MD
[2018-11-21] MEDS: XOPENEX NEB INH SCH ×5 (03:56→21:46)
[2018-11-21 05:45] LABS: BASO# 0.03 X1000 (0.0-0.2); BASO% 0.3 % (0.0-0.8); EOS# 0.14 X1000 (0.0-0.7); EOS% 1.5 % (0.0-10.0); HEMATOCRIT 30.8 % (37.0-47.0); HEMOGLOBIN 9.5 g/dL (12.0-16.0); IMM GRAN# 0.02 X1000 (0.0-0.04); IMM GRAN% 0.2 % (0.0-0.5); LYMPH# 0.84 X1000 (1.2-3.4); LYMPH% 9.1 % (20.5-51.1); MCH 27.9 PG (27-31); MCHC 30.8 g/dL (33-37); MCV 90.6 FL (81-99); MONO# 0.63 X1000 (0.11-0.59); MONO% 6.9 % (1.7-9.3); MPV 12.9 FL (7.4-10.4); NEUT# 7.53 X1000 (1.4-6.5); PLT 173 X1000 (130-400); RDW 18.7 % (11.5-14.5); WBC 9.19 X1000 (4.8-10.8)
[2018-11-21] MEDS: PROTONIX PO SCH (06:15)
[2018-11-21 06:17] LABS: CALCIUM 9.3 mg/dL (8.8-10.2); CREATININE 1.8 mg/dL (0.5-0.9); POTASSIUM 4.7 mmol/L (3.5-5.1)
[2018-11-21] MEDS: ISORDIL PO SCH ×3 (08:18→20:21)
[2018-11-21] MEDS: THERA M PLUS PO SCH (08:18)
[2018-11-21] MEDS: LOVENOX SUBQ SCH (08:18)
[2018-11-21] MEDS: APRESOLINE PO SCH ×3 (08:18→20:20)
[2018-11-21] MEDS: EFFEXOR XR PO SCH (08:18)
[2018-11-21] MEDS: MIRALAX PO SCH (08:18)
[2018-11-21] MEDS: ZYLOPRIM PO SCH ×2 (08:18→20:20)
[2018-11-21] MEDS: VITAMIN B-12 PO SCH (08:18)
[2018-11-21] MEDS: LASIX IV SCH ×3 (08:18→17:26)
[2018-11-21] MEDS: PATIENT'S OWN MED PO SCH ×2 (08:19→20:20)
[2018-11-21] MEDS: SYMBICORT 160/4.5 MICROGM INHALER INH SCH ×2 (09:27→21:47)
--- NOTE | 2018-11-21 11:41 | CARDIOLOGY PROGRESS NOTE ---
DATE: 11/21/2018 CHIEF COMPLAINT: Hypertension, dyspnea. SUBJECTIVE: Ms. Estrada seems to be doing better. However, her blood pressure is high. Echocardiogram has shown some mild aortic stenosis and pulmonary hypertension. She denies having any chest pain. OBJECTIVE: Blood pressure is 176/76, temperature 97.5, pulse 94, respirations 15. She is awake, alert and oriented. No distress. HEENT: Unremarkable. Chest: Some rales bilaterally, rhonchi. Heart sounds are regular and rhythmic with a systolic ejection murmur over the aortic area. Abdomen is soft, nontender. No masses. No hepatomegaly. Extremities showed no significant edema. There is trace edema in the right leg. Neurologic: Follows commands. Moves all 4 extremities. DIAGNOSTIC DATA: Blood work shows sodium 145, potassium 4.7, BUN is 77, creatinine 1.8. White cell count is 9190, hemoglobin 9.5, hematocrit 30.8. IMPRESSION: 1. The patient has congestive heart failure predominantly right sided. 2. Mild degree of aortic stenosis. 3. Pulmonary hypertension. 4. The patient is with congestive heart failure and chronic kidney disease. 5. Hypertension. Difficult to control. RECOMMENDATIONS: We will put her on hydralazine 75 mg 3 times a day and isosorbide dinitrate 60 mg 3 times a day, and then we will see how she does. We really do not like to exceed 75 mg 3 times a day because of the increased risk for lupus induced by hydralazine. Further advice will be forthcoming. Thank you for the opportunity to participate in her evaluation. cc: Vasquez Toussaint MD
[2018-11-21] MEDS ORDERED: APRESOLINE PO SCH ×4 (13:00→15:00)
--- NOTE | 2018-11-21 13:52 | PROGRESS NOTE ---
DATE: 11/21/2018 OVERNIGHT: No acute events. SUBJECTIVE: The patient denies any new complaints. Denies chest pain. She is feeling short of breath. However, she states that she is now feeling stronger. I discussed with her about increasing creatinine. I also discussed with her about chest x-ray, finding of chronically elevated right dome of the diaphragm. I answered all of her questions. OBJECTIVE: Vitals: Detect temperature afebrile with temperature 97.4 degrees, pulse 82, blood pressure 160/68, saturating 100% on 3 to 4 L nasal cannula. General: Appears mildly short of breath, but not in any distress. HEENT: Oral cavity is moist. There is tonsillar enlargement and erythema of the pharyngeal wall, especially affecting the right side. No tonsillar exudate. No cervical lymphadenopathy. Lungs: Air entry bilaterally equal no wheeze or rhonchi. Decreased air entry in right infrascapular region with inspiratory crackles in bilateral infrascapular region. Cardiovascular: S1, S2 normal. She has a pacemaker on left, systolic murmur in mitral and aortic region. No rub or gallop. Abdomen: Soft, nontender. Extremities: Bilateral lower extremity edema affecting feet, which is better than before. Left upper extremity has a PICC line and some swelling. Neurologic: Alert, oriented x3. LABORATORIES: No leukocytosis, stable hemoglobin, hematocrit, platelet count. Resolution of hypokalemia, chronic kidney disease stage 4, which is pretty close to her baseline. Slight decrease in proBNP. INPUT AND OUTPUT: Suggests she is -8 L since admission and she has lost 4 kg of weight. Currently, her weight in kg appears to be pretty close to her baseline. ASSESSMENT AND PLAN: 1. Acute on chronic diastolic congestive heart failure exacerbation. Continue intravenous Lasix and oral metolazone. Continue home oxygen to maintain saturation more than 92%. Currently, her weight is pretty close to her baseline weight. However, I will continue Lasix considering persistent shortness of breath. 2. Acute hypoxic respiratory failure and chronic hypoxic respiratory failure, currently stable. Continue oxygenation to maintain more than 92%, which is her home therapy. She has been previously treated adequately for community-acquired pneumonia with intravenous ceftriaxone, with last day of antibiotic being November 18. 3. Sore throat, and acute tonsillitis. Follow up with streptococcal antigen throat swab. Continue cefaclor lozenges for symptomatic relief. 4. Left upper extremity swelling associated PICC line. Follow up with ultrasound left upper extremity results. 5. History of coronary artery disease, atrial fibrillation and sick sinus syndrome, status post pacemaker, though not on anticoagulation considering history of GI bleed. Continue isosorbide and hydralazine at higher dose. The patient is not listed to be on beta blockers. I will defer management to wic site coordinator. 6. History of essential hypertension. I will increase hydralazine and isosorbide dose as per Cardiology recommendations. 7. Anemia of chronic disease, stable. Continue multivitamin, vitamin B12. 8. History of chronic kidney disease stage 4, currently stable. 9. History of chronic myelogenous leukemia, in remission. Hematology/Oncology has been on board. Currently, her CML appears to be well controlled, in remission. 10. JACQUI: Continue home CPAP. 10. Disposition. The patient remains in [facility] for close cardiorespiratory monitoring. Plan is discussed with her. All of her questions have been answered. cc: Michael Alexandre MD MTDD
[2018-11-22] MEDS: XOPENEX NEB INH SCH ×4 (04:03→21:30)
[2018-11-22 06:28] LABS: CALCIUM 9.9 mg/dL (8.8-10.2); CREATININE 1.8 mg/dL (0.5-0.9); POTASSIUM 4.1 mmol/L (3.5-5.1)
[2018-11-22] MEDS: PROTONIX PO SCH (06:29)
[2018-11-22] MEDS: VITAMIN B-12 PO SCH (08:21)
[2018-11-22] MEDS: MIRALAX PO SCH (08:21)
[2018-11-22] MEDS: ZYLOPRIM PO SCH ×2 (08:21→20:03)
[2018-11-22] MEDS: LASIX IV SCH ×3 (08:21→17:13)
[2018-11-22] MEDS: EFFEXOR XR PO SCH (08:21)
[2018-11-22] MEDS: THERA M PLUS PO SCH (08:21)
[2018-11-22] MEDS: LOVENOX SUBQ SCH (08:21)
[2018-11-22] MEDS: APRESOLINE PO SCH ×3 (08:22→20:03)
[2018-11-22] MEDS: ISORDIL PO SCH ×3 (08:22→20:03)
--- NOTE | 2018-11-22 10:47 | PROGRESS NOTE ---
DATE: 11/22/2018 INTERVAL HISTORY: No events. Her blood pressure was better controlled. She was able to walk inside her room. However, when she came back she was very short of breath. At rest she denies chest pain, shortness of breath. SUBJECTIVE: She is feeling fine. Denies chest pain or shortness of breath at rest. No palpitations. Her soreness in the throat is intermittent and persistent. I discussed with her about waiting throat swab results. OBJECTIVE: Vital signs: Temperature 98.2 degrees, pulse 85 per minute, blood pressure 170/70, saturating 97% on CPAP. Input and output: Suggests negative 600 mL yesterday. Since admission she is negative 9 L. General: Does not appear in any acute distress. HEENT: Oral cavity is moist with no pharyngeal congestion and right-sided tonsillar enlargement with erythema. No exudate. Neck: Mild cervical lymphadenopathy affecting right side. Lungs: Air entry bilaterally equal. No wheeze or rhonchi. Decreased air entry, especially in right infrascapular region. Bilateral inspiratory crackles. Cardiovascular: S1, S2 normal. She has a pacemaker on the left side. Systolic ejection murmur in mitral and aortic region. No rub or gallop. Abdomen: Soft, nontender. Extremities: Bilateral lower extremity edema extending up to mid mccart[place]. She has a left upper extremity PICC line with some swelling. Neurologic: Alert and oriented x3. LABS: Suggestive of increasing BUN, stable creatinine, and otherwise acceptable range of electrolytes. Her proBNP for tomorrow is pending. MICROBIOLOGY: Blood culture, no growth to date. Throat culture, no growth. IMAGING: No new imaging data. ASSESSMENT AND PLAN: 1. Acute on chronic diastolic congestive heart failure exacerbation. Continue intravenous Lasix, p.o. metolazone, and oxygenation to maintain saturation more than 92%. She is diuresing adequately since admission. However, her progress is low, but the patient subjectively has been feeling much better than admission. 2. Acute hypoxic respiratory failure on chronic hypoxic respiratory failure, currently stable. Continue home oxygen to maintain saturation more than 92%. She is now status post intravenous ceftriaxone on November 18 for community-acquired pneumonia. 3. Acute tonsillitis with cervical lymphadenopathy. She only met 1/4 Centor criteria. Throat swab is negative. No need for antibiotics. 4. Left upper extremity swelling associated with PICC line. Follow up ultrasound to rule out venous thrombosis. 5. History of coronary artery disease, atrial fibrillation, sick sinus syndrome, status post pacemaker. Continue isosorbide hydralazine. She is not on anticoagulation considering prior history of GI bleed. She is not on beta blockers. I will defer management to Cardiology regarding. 6. History of essential hypertension. Continue current hydralazine isosorbide dose as per Cardiology recommendation. Adjust according to today's blood pressure later during the day. 7. Anemia of chronic disease, stable. Continue multivitamin, vitamin B12. 8. History of chronic kidney disease stage 4, stable. 9. History of chronic myelogenous leukemia, in remission. Hematology/Oncology on board. 10. Obstructive sleep apnea. Continue home CPAP. 11. Disposition. Patient remains in [facility] for close cardiorespiratory monitoring. I had discussed her plan with the patient's son who is her next of kin/surrogate decision maker. All of her and her son's questions have been answered satisfactorily. cc: Michael Alexandre MD
[2018-11-22] MEDS: PATIENT'S OWN MED PO SCH (11:10)
[2018-11-22] MEDS: SYMBICORT 160/4.5 MICROGM INHALER INH SCH ×2 (11:53→21:30)
[2018-11-22] MEDS: ZAROXOLYN PO SCH (13:00)
[2018-11-23] MEDS: PATIENT'S OWN MED PO SCH ×2 (00:20→08:24)
[2018-11-23] MEDS: XOPENEX NEB INH SCH ×4 (05:08→21:25)
[2018-11-23 05:53] LABS: CREATININE 1.8 mg/dL (0.5-0.9); POTASSIUM 3.4 mmol/L (3.5-5.1)
[2018-11-23] MEDS: PROTONIX PO SCH (06:04)
[2018-11-23] MEDS: APRESOLINE PO SCH ×4 (07:49→19:34)
[2018-11-23] MEDS: ZYLOPRIM PO SCH ×3 (07:49→19:33)
[2018-11-23] MEDS: VITAMIN B-12 PO SCH ×2 (07:49→08:25)
[2018-11-23] MEDS: ISORDIL PO SCH ×4 (07:49→19:33)
[2018-11-23] MEDS: EFFEXOR XR PO SCH ×2 (07:49→08:22)
[2018-11-23] MEDS: KLOR-CON PO SCH ×2 (07:49→12:33)
[2018-11-23] MEDS: THERA M PLUS PO SCH ×2 (07:49→08:25)
[2018-11-23] MEDS: LASIX IV SCH ×4 (07:50→18:18)
[2018-11-23] MEDS: LOVENOX SUBQ SCH (08:23)
[2018-11-23] MEDS: MIRALAX PO SCH (08:25)
--- NOTE | 2018-11-23 09:23 | Diag Imaging Result Doc PS360 ---
CHEST-2 VIEWS - 11/23/2018 INDICATION: Evaluate for pleural effusion, infiltrate,edema COMPARISON: 11/19/2018 FINDINGS: Stable biventricular pacemaker. Stable significant cardiomegaly. Stable severe right hemidiaphragm elevation. There has been improvement in the ill-defined interstitial infiltrates/pulmonary edema. There is probably a trace left pleural effusion. IMPRESSION: Improved pulmonary edema. Electronically signed by Mark Lowery 11/23/2018 9:20 AM
--- NOTE | 2018-11-23 09:53 | PROGRESS NOTE ---
DATE: 11/23/2018 INTERVAL HISTORY: No interval events. The patient's blood pressure was better controlled. SUBJECTIVE: She is denying chest pain. She was able to walk with physical therapy yesterday, and was able to go to the hallway and come back. However, she did get short of breath. The patient feels she is improving on a daily basis. We discussed about her elevated BUN, and getting a repeat chest x-ray. I answered all of her questions. Her soreness of throat is better, as she states. CURRENTLY VITALS: Temperature 97.9 degrees, pulse 73, respiratory rate 18, blood pressure 168/66, saturating 100% on CPAP. OBJECTIVE: General: Does not appear in any acute distress. Oral cavity: Moist. Reduced pharyngeal congestion and reduced tonsillar enlargement without exudate. Neck: Mild cervical lymphadenopathy affecting right side. Lungs: Air entry decreased in right infrascapular region. Inspiratory crackles on left infrascapular region and right infrascapular region. Cardiovascular: S1, S2 normal. She has a pacemaker on the left side. Systolic ejection murmur in mitral and aortic region without rub or gallop. Abdomen: Soft, nontender. Extremities: Bilateral lower extremity edema extending up to mid m[place]art[place]. Left upper extremity PICC line without much swelling. Carrasco catherter in. She requested to keep it as it would be difficult for her to get up and pass urine frequently. Neurologic: Alert and oriented x3. LABS: Today suggestive of hypokalemia, hypochloremia, elevated carbon dioxide, persistently elevated proBNP, chronic kidney disease stage III to stage IV. Microbiology: No data except throat culture has been negative. ASSESSMENT AND PLAN: 1. Acute on chronic diastolic congestive heart failure exacerbation. Continue intravenous Lasix, p.o. metolazone, oxygenation to maintain saturation of more than 92%. She has been diuresing adequately and subjectively has been feeling significantly better since admission. She will still need continued IV diuresis for a few days. 2. Acute hypoxic respiratory failure on chronic hypoxic respiratory failure, currently stable. Continue home oxygenation to maintain saturation more than 92%. She is status post intravenous ceftriaxone course for community-acquired pneumonia. 3. Acute tonsillitis and cervical lymphadenopathy with negative throat culture. No need of antibiotics, improving. 4. Left upper extremity swelling associated with peripherally inserted central catheter line. Follow up ultrasound to rule out venous thrombosis. 5. History of coronary artery disease, atrial fibrillation, sick sinus syndrome status post pacemaker. Continue isosorbide and hydralazine. She is not on anticoagulation considering prior history of gastrointestinal bleed. I will defer management to Cardiology about adding beta-devonte for her heart failure. 6. History of essential hypertension. Continue hydralazine, isosorbide as per Cardiology recommendation. I might add beta-blockers. 7. Anemia of chronic disease. Continue multivitamin and vitamin B12. 8. History of chronic kidney disease stage 4, which is stable. 9. History of chronic myelogenous leukemia, in remission. Heme-Onc on board. 10. History of obstructive sleep apnea. Continue home continuous positive airway pressure. 11. Disposition. The patient remains inside the hospital for close respiratory monitoring and intravenous Lasix use. I will follow up with chest x-ray today to confirm improvement. Plan of care discussed with her. All of her questions had been answered. cc: Michael Alexandre MD MTDD
[2018-11-23] MEDS: SYMBICORT 160/4.5 MICROGM INHALER INH SCH ×2 (10:07→21:25)
[2018-11-23] MEDS ORDERED: POTASSIUM CHLORIDE 20% LIQUID PO ONE (12:24)
[2018-11-23] MEDS: NORVASC PO SCH (12:39)
--- NOTE | 2018-11-23 13:38 | CARDIOLOGY PROGRESS NOTE ---
DATE: 11/23/2018 SUBJECTIVE: Ms. Estrada continues to improve. Her I's and O's continue to be negative. She reports improvement in her breathing overall. She is diuresing. Her blood pressure continues to be quite elevated. Her ISDN and hydralazine have been titrated in the last couple of days. OBJECTIVE: Vital signs: She is afebrile. Heart rate 84. Blood pressure is 166/98. General: She is in no acute distress. Cardiovascular: She sounds to be in a regular rate and rhythm. I do not hear any obvious murmurs. She has no S3. Extremities: She has trace bilateral lower extremity edema and warm and well-perfused lower extremities. Chest: Mild basilar rales. No increased work of breathing. Abdomen: Soft, nontender. PERTINENT DATA: Chest x-ray today shows improvement in the pulmonary edema, very trace left-sided effusion. Sodium 141, potassium 3.4, BUN 88, creatinine 1.8. ProBNP today is 19,886, which is down from a peak of 24,000. ASSESSMENT: Ms. Estrada is a 78-year-old female with pulmonary hypertension and diastolic failure. PLAN: She continues to diurese albeit somewhat slowly. Her renal function is stable. I will ensure her potassium has been repleted. I will add in some amlodipine at 5 mg daily. Laboratories to be checked in the morning. cc: Rl Browning MD
--- NOTE | 2018-11-23 15:08 | HEMO/ONC CONSULTATION ---
DATE: 11/19/2017 ADMITTING PHYSICIAN: Barney Jefefrson MD REQUESTING PHYSICIAN: Barney Jefferson MD We appreciate this consult. CHIEF COMPLAINT: CML. HISTORY OF PRESENT ILLNESS: Ms. Prerna Estrada is a pleasant 78-year-old, female well known to Dr. Kimble with a history of CML with complete remission, currently on Tasigna. The patient's last BCR/ABL in February 2018 was 0.003. The patient does have a history of coronary artery disease, diastolic heart failure, pulmonary edema, on supplemental O2, hypertension, peripheral edema, chronic kidney disease, ulcerative colitis, breast cancer, GI bleed, sick sinus syndrome, and atrial fibrillation with pacemaker placement, as well as proximal mitral regurgitation. The patient has experienced a 15-pound weight gain since March 2018 and states that she has become more short of breath with worsening pitting edema in the bilateral lower extremities in spite of diuretics. The patient is admitted for congestive heart failure exacerbation. PAST MEDICAL HISTORY: As in HPI. PAST SURGICAL HISTORY: 1. Permanent pacemaker placement. 2. Hysterectomy. 3. Partial colectomy. SOCIAL HISTORY: The patient does not use tobacco, alcohol, or illicit drugs. She does have a history of cigarette smoking. FAMILY HISTORY: Negative for any hematologic or oncologic problem. MEDICATIONS ON ADMISSION: 1. Ventolin inhaler. 2. Symbicort. 3. Vitamin B12 sublingual. 4. Flonase. 5. Lasix. 6. Hydralazine. 7. Reglan. 8. Protonix. 9. MiraLAX. 10. Effexor. ALLERGIES: The patient has no known drug allergies. REVIEW OF SYSTEMS: A 14-point review of systems was obtained and is negative except for mentioned in HPI. LABORATORY DATA: Hemoglobin 9.5, hematocrit 30.7, white blood cell count 9.66, platelets 172,000. Sodium 143, potassium 3.7, chloride 90, CO2 40, BUN 83, creatinine 1.6, and glucose 125. ProBNP is 22,362. IMAGING STUDIES: Chest x-ray reveals worsening pleural effusions. ASSESSMENT AND PLAN: 1. Chronic myelogenous leukemia with complete remission on Tasigna. Last BCR/ABL in February 2018 was 0.003. 2. Cor pulmonale versus acute diastolic heart failure, on Lasix, Zaroxolyn, and hydralazine. 3. Chronic kidney insufficiency with stable BUN and creatinine at this time. 4. History of gastrointestinal bleed, currently on subcutaneous Lovenox. Would monitor CBC. 5. Sick sinus syndrome and atrial fibrillation, status post permanent pacemaker placement. 6. Anemia with an iron saturation of 18.5% on 11/01/2018. Hemoglobin is currently stable. The patient did miss a dose of Feraheme. She has received 1 dose in the hospital. She is scheduled for 1 additional dose. We would continue to monitor CBC. We will follow along with you and make further recommendations pending outcomes. Dictated by CLAUDIA Rice for Laci Kimble MD cc: CLAUDIA Rice MD
[2018-11-23] MEDS: NS NEB INH SCH (15:45)
[2018-11-24] MEDS: APRESOLINE PO SCH ×4 (00:40→20:40)
[2018-11-24] MEDS: PATIENT'S OWN MED PO SCH ×4 (00:40→21:44)
[2018-11-24] MEDS: ISORDIL PO SCH ×4 (00:42→20:40)
[2018-11-24 05:12] LABS: BASO# 0.02 X1000 (0.0-0.2); BASO% 0.2 % (0.0-0.8); EOS# 0.16 X1000 (0.0-0.7); EOS% 1.7 % (0.0-10.0); HEMATOCRIT 29.5 % (37.0-47.0); HEMOGLOBIN 9.3 g/dL (12.0-16.0); IMM GRAN# 0.02 X1000 (0.0-0.04); IMM GRAN% 0.2 % (0.0-0.5); LYMPH# 0.88 X1000 (1.2-3.4); LYMPH% 9.2 % (20.5-51.1); MCHC 31.5 g/dL (33-37); MCV 88.9 FL (81-99); MONO# 0.76 X1000 (0.11-0.59); MONO% 7.9 % (1.7-9.3); MPV 12.8 FL (7.4-10.4); NEUT# 7.75 X1000 (1.4-6.5); NEUT% 80.8 % (42.2-75.2); PLT 195 X1000 (130-400); RBC 3.32 XMIL (4.2-5.4); RDW 18.4 % (11.5-14.5); WBC 9.59 X1000 (4.8-10.8)
[2018-11-24] MEDS: XOPENEX NEB INH SCH ×4 (05:32→21:08)
[2018-11-24 05:58] LABS: CALCIUM 10.5 mg/dL (8.8-10.2); CREATININE 2.1 mg/dL (0.5-0.9); MAGNESIUM 2.1 mg/dL (1.5-2.7); POTASSIUM 4.9 mmol/L (3.5-5.1)
[2018-11-24] MEDS: PROTONIX PO SCH (06:13)
[2018-11-24] MEDS: MIRALAX PO SCH (09:13)
[2018-11-24] MEDS: LOVENOX SUBQ SCH ×2 (09:13→09:22)
[2018-11-24] MEDS: LASIX IV SCH (09:13)
[2018-11-24] MEDS: VITAMIN B-12 PO SCH (09:14)
[2018-11-24] MEDS: THERA M PLUS PO SCH (09:14)
[2018-11-24] MEDS: ZYLOPRIM PO SCH ×2 (09:14→20:40)
[2018-11-24] MEDS: NORVASC PO SCH (09:14)
[2018-11-24] MEDS: EFFEXOR XR PO SCH (09:14)
[2018-11-24] MEDS: NS NEB INH SCH (10:14)
[2018-11-24] MEDS: SYMBICORT 160/4.5 MICROGM INHALER INH SCH ×2 (10:20→21:08)
--- NOTE | 2018-11-24 11:58 | PROGRESS NOTE ---
DATE: 11/24/2018 INTERVAL HISTORY: Yesterday's chest x-ray had suggested improving pulmonary edema. Considering her increasing BUN and creatinine, her Lasix frequency was changed to b.i.d. from t.i.d. and amlodipine was added for better blood pressure control. SUBJECTIVE: Patient denies new complaints. Denies chest pain. Continues to have exertional shortness of breath. She has expressed previously that she would like to keep her Carrasco catheter despite understanding the risks associated with it as she would have trouble frequently urinating. We discussed above plan and answered all of her questions. OBJECTIVE: Vitals: Temperature 98 degrees, pulse 83, respiratory rate 90, blood pressure 147/66, saturating 98% on 4 L nasal cannula. General: She does not appear in acute distress. HEENT: Oral cavity is moist. She has tonsillar enlargement, especially on the right side, without any exudate or congestion anymore. Neck: Mild cervical lymphadenopathy affecting right side has significantly improved. Lungs: Air entry decreased in right infrascapular region. She has inspiratory crackles on bilateral infrascapular region. Cardiovascular: S1, S2 normal. Pacemaker on the left side. Systolic murmur affecting mitral and aortic region without a rub or gallop. Abdomen: Soft, nontender. Extremities: She has bilateral lower extremity edema extending up to midshin level. She has left upper extremity PICC line. She has Carrasco catheter in place. Neurologic: She is alert, oriented x3. INPUT AND OUTPUT: She is -500 mL yesterday. Since admission, she has been -10 L and she has lost about 3 kg of weight. LABORATORIES: Suggestive of stable hemoglobin, hematocrit, and platelet count. Resolution of hypokalemia, increasing BUN and creatinine and consistently elevated proBNP. ASSESSMENT AND PLAN: 1. Acute on chronic diastolic congestive heart failure exacerbation. Continue intravenous Lasix IV b.i.d. Depending on her kidney function, her Lasix dose might need to be further decreased. Continue p.o. metolazone. Continue oxygenation to maintain saturation more than 92%. Chest x- ray on November 23 suggests improvement. The patient is also feeling subjectively better. 2. Acute hypoxic respiratory failure on chronic hypoxic respiratory failure, now resolved. At home, patient takes nasal cannula oxygen 4 L, which currently she is on, continue it. She is now status post intravenous ceftriaxone for community-acquired pneumonia, which was stopped on November 18. 3. Acute tonsillitis and cervical lymphadenopathy with negative throat culture, currently improving. Continue symptomatic cefaclor lozenges as needed. 4. Left upper extremity swelling associated with PICC line. Ultrasound of left upper extremity results are pending for venous thrombosis. 5. History of coronary artery disease, atrial fibrillation, sick sinus syndrome , status post pacemaker. Continue isosorbide, hydralazine and amlodipine for essential hypertension. She has not been on anticoagulation because of prior history of GI bleed. She is not on beta devonte. However, Cardiology is on board and I would defer management to them. 6. History of essential hypertension. Plan as mentioned above. 7. Anemia of chronic disease. Continue multivitamin, vitamin B12. She has already received intravenous iron by Hematology during this admission and likely to receive another dose of intravenous iron. 8. History of chronic kidney disease stage IV, stable, aware, with increasing BUN and creatinine. Depending on her BMP tomorrow, I would adjust Lasix dose. 9. History of chronic myelogenous leukemia, in remission. Hematology/Oncology on board. Continue patient's home nilotinib. 10. History of obstructive sleep apnea. Continue home CPAP at nighttime. 12. DVT prophylaxis: Enoxaparin. However, patient has been refusing it saying she doesn't like the sticks despite knowing the purpose of it. 11. Disposition. Patient remains inside the hospital for need for intravenous Lasix. Her clinical status has significantly improved since admission. However, she still gets short of breath on physical exertion. After discussion with Cardiology, I anticipate discharge in next 24 to 48 hours depending on her BMP and functional status. She continues to receive physical therapy. Plan of care was discussed with her. All of her questions have been answered. cc: Michael Alexandre MD [facility]
--- NOTE | 2018-11-24 13:32 | CARDIOLOGY PROGRESS NOTE ---
DATE: 11/24/2018 SUBJECTIVE: Ms. Estrada reports she feels better. Her breathing has improved somewhat. She has no pain complaints. PHYSICAL EXAMINATION: Vital signs: She is afebrile. Heart rate of 80. Blood pressure 133/70. General: She is in no acute distress. Cardiovascular: She sounds to be in a regular rate and rhythm. She continues to have 2/6 systolic murmur best heard at the right upper sternal border. Her edema has essentially almost completely resolved. Chest: Her chest exam has mild basilar rales. No increased work of breathing. Abdomen: Her abdomen is soft, nontender. PERTINENT DATA: Her white count is 9.6, hematocrit 29, platelet count is 195,000. Her sodium is 139, potassium 4.9, BUN 86, creatinine is 2.1. That is up from 88 and 1.8 yesterday. ASSESSMENT: Ms. Estrada is a 78-year-old female with diastolic failure and pulmonary hypertension. PLAN: Her BUN and creatinine ratio have increased. She seems to be diuresing and blood pressure is much better controlled more recently. Presently, I think she is approaching the point of euvolemia. I have held her Lasix today with resumption at 80 IV b.i.d. in the morning. Laboratories will be checked in the morning including a BMP and a BNP. At this point, I believe she is approaching appropriateness for discharge hopefully in the next 24 to 48 hours. cc: Rl Browning MD
[2018-11-24] MEDS: ZAROXOLYN PO SCH (14:50)
[2018-11-25] MEDS: XOPENEX NEB INH SCH ×4 (03:12→21:20)
[2018-11-25] MEDS: PROTONIX PO SCH ×2 (05:40→06:03)
[2018-11-25 05:49] LABS: CREATININE 2.1 mg/dL (0.5-0.9); MAGNESIUM 2.2 mg/dL (1.5-2.7); POTASSIUM 4.2 mmol/L (3.5-5.1)
[2018-11-25] MEDS: SYMBICORT 160/4.5 MICROGM INHALER INH SCH ×2 (09:36→21:20)
[2018-11-25] MEDS: EFFEXOR XR PO SCH (09:59)
[2018-11-25] MEDS: ISORDIL PO SCH ×4 (09:59→21:57)
[2018-11-25] MEDS: MIRALAX PO SCH (09:59)
[2018-11-25] MEDS: VITAMIN B-12 PO SCH (09:59)
[2018-11-25] MEDS: LOVENOX SUBQ SCH (09:59)
[2018-11-25] MEDS: APRESOLINE PO SCH ×4 (09:59→21:57)
[2018-11-25] MEDS: LASIX IV SCH ×3 (09:59→21:58)
[2018-11-25] MEDS: THERA M PLUS PO SCH (09:59)
[2018-11-25] MEDS: ZYLOPRIM PO SCH ×3 (09:59→21:58)
[2018-11-25] MEDS: NORVASC PO SCH (09:59)
[2018-11-25] MEDS: PATIENT'S OWN MED PO SCH ×2 (10:00→21:58)
--- NOTE | 2018-11-25 12:15 | PROGRESS NOTE ---
DATE: 11/25/2018 SUBJECTIVE: This patient is complaining today of mild lower extremity swelling. She has been receiving furosemide. Her kidney function is about the same compared with yesterday. BUN increased a little bit, though, from 86 to 91, but it looks like her creatinine probably is around her baseline or maybe a little bit elevated. Her BNP decreased from 19,000 to 13,000. Cardiology department following this patient. I will follow their recommendations. OBJECTIVE: Vital Signs: Temperature 98.2 degrees, pulse 90, respiratory rate 19, blood pressure 162/64, oxygen saturation 94% on 4 L of nasal cannula. HEENT: Head normocephalic. No trauma. PERRLA. Neck: Supple. No JVD. Central trachea. Chest: Decreased breath sounds mostly at the bases with some crackles at the bases as well. No wheezing. Cardiovascular: RRR. Pacemaker on the left side. Systolic murmur. Abdomen: Soft, nontender, nondistended. No hepatosplenomegaly. Extremities: 1 to 2+ lower extremity edema. No clubbing. No cyanosis. Neurological: The patient is alert and oriented x3. No focal deficits. Neck: Mild lymphadenopathy on the right side. LABORATORY: Sodium 140, potassium 4.2, chloride 91, bicarbonate 37, BUN 91, creatinine 2.1, glucose 126, calcium 10, magnesium 2.2. ProBNP 13,145. ASSESSMENT AND PLAN: 1. Acute on chronic diastolic congestive heart failure exacerbation. We will continue with Lasix treatment, but we will monitor really close the kidney function. Probably, we need to start decreasing the Lasix a little bit. I believe she is getting better, and she feels better also. I will wait for Cardiology recommendations. 2. Acute hypoxemic respiratory failure on chronic hypoxemic respiratory failure, resolved. She is on home oxygen 4 liters. She is now status post intravenous ceftriaxone for community- acquired pneumonia: The treatment has been already stopped on the of this month. 3. Acute tonsillitis and cervical lymphadenopathy with negative throat culture, improving. He is to continue with the same management. 4. Left upper extremity swelling associated with peripherally inserted central catheter line. It looks like we did a venous ultrasound, but I do not see the result, but I will call to ask I will call and find out to see if I need to change the treatment. 5. History of coronary artery disease, atrial fibrillation, sick sinus syndrome, status post pacemaker. Continue with the same management. Cardiology on board. 6. History of hypertension. Continue with hydralazine and isosorbide as per Cardiology recommendations. 7. Anemia of chronic disease, stable. Continue with same management. 8. History of chronic kidney disease, stage IV, stable. 9. History of chronic myelogenous leukemia, in remission. On-call hematology/oncology on board. 10. History of obstructive sleep apnea. Continue with her continuous positive airway pressure machine. 11. We will continue with the same management for now. She seems to be doing better. I will continue following the recommendations of Cardiology Department. cc: Jaime Tavarez MD
--- NOTE | 2018-11-25 15:34 | CARDIOLOGY PROGRESS NOTE ---
DATE: 11/25/2018 SUBJECTIVE: Ms. Estrada reports a little bit more chest congestion last night, as well as some lower extremity edema. OBJECTIVE: Vital signs: She is afebrile, heart rate 87, her blood pressure is 179/86. General: She is in no acute distress. Cardiovascular: She sounds to be in a regular rate and rhythm. She has trace bilateral lower extremity edema. Warm and well-perfused extremities. She has a 2/6 systolic murmur at the right upper sternal border. Chest: Exam has mild basilar rales. No increased work of breathing. Gastrointestinal: Her abdomen is soft, nontender. PERTINENT DATA: Sodium is 140, potassium 4.2, BUN 91, creatinine is 2.1, roughly stable from yesterday. Her proBNP is down to 13,000 from 19,000 on 11/23/2018. ASSESSMENT: Ms. Estrada is a 78-year-old female with pulmonary hypertension. PLAN: She continues to diurese. We will check a proBNP and a basic metabolic panel in the morning. She continues on amlodipine at 5 mg daily, along with her other medications. I will continue on those for the time being. cc: Rl Browning MD
[2018-11-26] MEDS: XOPENEX NEB INH SCH ×4 (05:35→21:10)
[2018-11-26 06:59] LABS: CALCIUM 8.6 mg/dL (8.8-10.2); CREATININE 1.7 mg/dL (0.5-0.9); MAGNESIUM 1.9 mg/dL (1.5-2.7); POTASSIUM 3.1 mmol/L (3.5-5.1)
[2018-11-26] MEDS: SYMBICORT 160/4.5 MICROGM INHALER INH SCH ×2 (08:15→21:10)
[2018-11-26] MEDS ORDERED: KLOR-CON PO ONE (09:03)
[2018-11-26] MEDS: ZAROXOLYN PO SCH ×2 (09:25→15:04)
[2018-11-26] MEDS: EFFEXOR XR PO SCH (09:25)
[2018-11-26] MEDS: APRESOLINE PO SCH ×3 (09:25→20:04)
[2018-11-26] MEDS: ZYLOPRIM PO SCH ×2 (09:25→20:04)
[2018-11-26] MEDS: NORVASC PO SCH (09:26)
[2018-11-26] MEDS: PATIENT'S OWN MED PO SCH ×2 (09:26→20:12)
[2018-11-26] MEDS: LOVENOX SUBQ SCH (09:26)
[2018-11-26] MEDS: VITAMIN B-12 PO SCH (09:26)
[2018-11-26] MEDS: THERA M PLUS PO SCH (09:26)
[2018-11-26] MEDS: ISORDIL PO SCH ×3 (09:26→20:04)
[2018-11-26] MEDS: LASIX IV SCH ×2 (09:26→20:03)
[2018-11-26] MEDS: MIRALAX PO SCH (09:26)
--- NOTE | 2018-11-26 10:07 | Extremity Venous Study ---
PROCEDURE NAME: Venous U/S Left Arm - 11/18/2018 LEFT UPPER EXTREMITY VENOUS DUPLEX AND COLOR FLOW IMAGING STUDY: Using the GE Vivid E9 ultrasound system with a 9 L-D transducer. REFERRING PHYSICIAN: Dr. Michael Alexandre. LOADER: Natalie Liu RVT. INDICATIONS: Pain and swelling left upper extremity. The patient has a PICC line in place. FINDINGS: The left internal jugular vein was compressible throughout its length without evidence of thrombus. The left subclavian and brachial veins were compressible and had flow through them. There was evidence of a PICC catheter in the left subclavian vein. The brachial veins in the left arm were all compressible and had flow through them. The superficial veins basilic and cephalic veins were compressible without evidence of thrombus. The PICC line was within the basilic vein. The small veins in the antecubital fossa and distally were all compressible and had flow through them. INTERPRETATION: There is a PICC line involving the veins of the left upper extremity as described above but there is no evidence of acute deep or superficial venous thrombosis involving the left upper extremity veins. cc: MD Michael Rojas MD
--- NOTE | 2018-11-26 10:43 | PROGRESS NOTE ---
DATE: 11/26/2018 SUBJECTIVE: This patient is feeling better today. So far, we have a negative balance of 12.4 L. She is breathing better. Cardiology Department on board. BUN and creatinine looked better today also. We will continue to monitor. I will follow cardiology recommendations. OBJECTIVE: Vital Signs: Temperature 97.6 degrees, pulse 80, respiratory rate 20, blood pressure 173/70 and oxygen saturation 98 on 4 L of nasal cannula. HEENT: Head normocephalic. No trauma. PERRLA. Neck: Supple. No JVD. No masses. Central trachea. Chest: Decreased breath sounds mostly at the bases with some crepitus at the bases as well. No wheezing. Cardiovascular: RRR. Pacemaker on the left side. Systolic murmur. Abdomen: Soft, nontender, and nondistended. No hepatosplenomegaly. Extremities: 1+ lower extremity edema. No clubbing. No cyanosis. Neurological: The patient is alert and oriented x3. No focal deficits. LABORATORY: Sodium 145, potassium 3.1, chloride 98, bicarbonate 34, BUN 83, creatinine 1.7, glucose 104, calcium 8.6 and ProBNP 47902. ASSESSMENT AND PLAN: 1. Acute on chronic diastolic CHF exacerbation. Continue with Lasix treatment. Need to monitor really close the kidney function. Probably we need to start decreasing the Lasix in the near future since she has a negative balance of 12.4 liter. I believe she is getting better. 2. Acute hypoxemic respiratory failure on chronic hypoxemic respiratory failure, resolved. She is on home oxygen 4 L. She is now status post intravenous ceftriaxone for community-acquired pneumonia that basically resolved. The treatment has been stopped on the of last month. 3. Acute tonsillitis and cervical lymphadenopathy with negative throat culture improving. 4. Left upper extremity swelling associated with peripherally inserted left upper extremity swelling associated with PICC line. This is better. I do not think she has any kind of clots, but we will wait for the results. 5. History of coronary artery disease, atrial fibrillation, sick sinus syndrome, status post pacemaker placement. Continue with same management. Cardiology on board. 6. History of hypertension. Continue with hydralazine, isosorbide per Cardiology recommendations. 7. Anemia of chronic disease, stable. Continue with the same management. 8. Hypertension. Continue with the same management. 9. Anemia of chronic disease. Stable. Continue with same treatment. 10. CKD Stage IV. Stable. 11. History of CML in remission. Hematology/Oncology on board. 12. History of obstructive sleep apnea. Continue with CPAP machine. 13. I do believe this patient is much better. We have a negative balance of 12.4 L so far. She is breathing better. She has no complaint of chest pain or shortness of breath Cardiology Department on board. I will follow their recommendations. 14. Also, I talked to the patient about rehab center placement versus going home with physical therapy at home. She wants to go home. As per the patient, she lives by herself but her daughter and son live really close to her house and they are also keeping an eye on her. I have requested physical therapy evaluation again, and occupational therapy evaluation for this patient. cc: Jaime Tavarez MD
[2018-11-26] MEDS: PROTONIX PO SCH (19:02)
--- NOTE | 2018-11-26 23:57 | CARDIOLOGY PROGRESS NOTE ---
DATE: 11/26/2018 SUBJECTIVE: Ms. Estrada reports she feels a little bit better today. She had what sounds like a little mild orthopnea last night that resolved after a few minutes. She reports improved lower extremity edema. PHYSICAL EXAMINATION: Vital Signs: She is afebrile. Heart rate is 78. Blood pressure 147/63. Her I's and O's continue to be negative over the course of the hospitalization. She is negative a total of nearly 12-1/2 L. General: She is in no acute distress. Cardiovascular: She sounds to be in a regular rate and rhythm. She has a 2/6 systolic murmur at the right upper sternal border, with trace lower extremity edema. Chest: Has mild basilar rales. She has no increased work of breathing. Abdomen: Soft, nontender. PERTINENT DATA: Lab data shows a sodium 145, potassium 3.1, BUN 83, creatinine is 1.7. Her proBNP is 13,506, basically flat from yesterday. ASSESSMENT: Ms. Estrada is a 78-year-old female with pulmonary hypertension and diastolic failure. PLAN: Her potassium has been repleted. She did receive some metolazone today. I have increased her amlodipine to 10 mg daily. We will continue to try to diurese her, and tentatively we can potentially hopefully get her out either Thursday or Thursday of this coming week. cc: Rl Browning MD
[2018-11-27] MEDS: XOPENEX NEB INH SCH ×5 (03:10→21:20)
[2018-11-27] MEDS: PROTONIX PO SCH ×2 (04:59→06:04)
[2018-11-27 05:58] LABS: CALCIUM 10.5 mg/dL (8.8-10.2); CREATININE 1.9 mg/dL (0.5-0.9); MAGNESIUM 2.2 mg/dL (1.5-2.7); POTASSIUM 3.7 mmol/L (3.5-5.1)
[2018-11-27] MEDS: ISORDIL PO SCH ×3 (08:35→19:59)
[2018-11-27] MEDS: THERA M PLUS PO SCH (08:35)
[2018-11-27] MEDS: EFFEXOR XR PO SCH (08:35)
[2018-11-27] MEDS: VITAMIN B-12 PO SCH (08:35)
[2018-11-27] MEDS: MIRALAX PO SCH (08:35)
[2018-11-27] MEDS: LASIX IV SCH ×2 (08:35→19:59)
[2018-11-27] MEDS: NORVASC PO SCH (08:35)
[2018-11-27] MEDS: LOVENOX SUBQ SCH (08:36)
[2018-11-27] MEDS: PATIENT'S OWN MED PO SCH ×2 (08:36→20:50)
[2018-11-27] MEDS: ZYLOPRIM PO SCH ×2 (08:36→19:59)
[2018-11-27] MEDS: APRESOLINE PO SCH ×3 (08:36→20:00)
[2018-11-27] MEDS: SYMBICORT 160/4.5 MICROGM INHALER INH SCH ×2 (09:00→21:20)
--- NOTE | 2018-11-27 10:33 | PROGRESS NOTE ---
DATE: 11/27/2018 SUBJECTIVE: This patient is feeling better today. We have a total negative balance of almost 13 L. She is breathing better. Cardiology on board. BUN and creatinine increased a little bit compared with yesterday. LABORATORY: WBC 97.8, hemoglobin 80, hematocrit 18. OBJECTIVE: Blood pressure 144/67. Oxygen saturation. 99% on 4 L of nasal cannula. HEENT: Head normocephalic. No trauma. PERRLA. Neck supple. No JVD. No masses. Central trachea. Chest: Decreased breath sounds mostly at the bases with some crepitus at the bases as well. No wheezing, cardiovascular, RRR. Pacemaker on the left side. Systolic murmur. Abdomen soft, nontender, nondistended. No hepatosplenomegaly. Extremities 1+ lower extremity edema. No clubbing. No cyanosis. Neurologic: The patient is alert and oriented x3. No focal deficits. LABORATORY: Sodium 140, potassium 3.7, chloride 91, bicarbonate 38. BUN 97, creatinine 1.9. Glucose 125. Calcium 10.5. Magnesium 2.2. ASSESSMENT AND PLAN: 1. [id number] diastolic congestive heart failure. Continue with Lasix treatment. We need to continue monitoring the kidney function closely. Probably, we will need to decrease the Lasix in the near future since we have a negative balance of almost 13. I believe she is getting better. 2. [id number] hypoxemic respiratory failure, resolved. She is on home oxygen around 4 L. She is now status post intravenous ceftriaxone for community-acquired pneumonia at that basically resolved. The treatment has been stopped on 11/18/2018. 3. Acute tonsillitis and cervical lymphadenopathy with negative throat culture, improving. 4. Left upper extremity swelling associated with a PICC line, better. 5. History of coronary artery disease. Atrial fibrillation and sick sinus syndrome, status post pacemaker placement. Continue with the same management. Cardiology on board. 6. History of hypertension. Continue with hydralazine and isosorbide per Cardiology Department. 7. Anemia of chronic disease, stable. Continue with same treatment. 8. Hypertension, stable. 9. Anemia of chronic disease, stable. 10. Chronic kidney disease, stage 4, stable. We need to continue monitoring the kidney function. 11. History of chronic myelogenous leukemia, in remission, aware. 12. History of obstructive sleep apnea. Continue the CPAP machine. 13. This patient is doing better. She does not want to go to a rehab center. She wants to go home. Probably with physical therapy at home. Cardiology Department is following this patient, and they suggested to discharge this patient either tomorrow or next Thursday. cc: Jaime Tavarez MD
--- NOTE | 2018-11-27 23:22 | PROGRESS NOTE ---
DATE: 11/27/2018 SUBJECTIVE: Patient reports progressive improvement in how she feels. She denies shortness of breath on supplemental oxygen per nasal cannula. Edema seems to be improving as well. There has been no chest pain. No orthopnea OBJECTIVE: Vital Signs: Blood pressure 124/54, heart rate 80, oxygen saturation 97% on nasal cannula oxygen. Jugular venous distention is present consistent with significantly elevated central venous pressure. Chest: Auscultation of the chest reveals a few inspiratory crackles in the bases bilaterally. Cardiac Exam: Reveals a regular rate and rhythm with a grade 2/6 systolic murmur at the right upper sternal border. Extremities: Demonstrate mild ankle edema. LABORATORY DATA: Includes a sodium 140, potassium 3.7, chloride 91, carbon dioxide 38, BUN 87, creatinine 1.9, glucose 125. IMPRESSION: 1. Congestive heart failure predominantly right-sided. This is improving with diuresis. Patient still manifests elevated central venous pressure and some edema. 2. Mild aortic stenosis. 3. Pulmonary hypertension. 4. Chronic kidney disease. 5. Hypertension. RECOMMENDATIONS: 1. Continue current cardiovascular regimen unchanged. 2. Continue efforts to diurese further. cc: Arden Siegel MD
[2018-11-28] MEDS: PROTONIX PO SCH ×2 (04:45→06:10)
[2018-11-28] MEDS: XOPENEX NEB INH SCH ×4 (05:42→21:27)
[2018-11-28 05:44] LABS: BASO# 0.02 X1000 (0.0-0.2); BASO% 0.2 % (0.0-0.8); EOS# 0.14 X1000 (0.0-0.7); EOS% 1.5 % (0.0-10.0); HEMATOCRIT 28.8 % (37.0-47.0); HEMOGLOBIN 9.1 g/dL (12.0-16.0); IMM GRAN# 0.03 X1000 (0.0-0.04); IMM GRAN% 0.3 % (0.0-0.5); LYMPH# 0.71 X1000 (1.2-3.4); LYMPH% 7.7 % (20.5-51.1); MCHC 31.6 g/dL (33-37); MCV 88.6 FL (81-99); MONO% 7.6 % (1.7-9.3); MPV 13.3 FL (7.4-10.4); NEUT# 7.62 X1000 (1.4-6.5); NEUT% 82.7 % (42.2-75.2); PLT 211 X1000 (130-400); RBC 3.25 XMIL (4.2-5.4); RDW 18.1 % (11.5-14.5); WBC 9.22 X1000 (4.8-10.8)
[2018-11-28 06:39] LABS: CALCIUM 10.2 mg/dL (8.8-10.2); CREATININE 1.8 mg/dL (0.5-0.9); MAGNESIUM 2.3 mg/dL (1.5-2.7); POTASSIUM 3.4 mmol/L (3.5-5.1)
--- NOTE | 2018-11-28 07:41 | Diag Imaging Result Doc PS360 ---
EXAM: CHEST-PORTABLE 11/28/2018 HISTORY: dyspnea TECHNIQUE: AP portable at 0543 COMMENT: There is atelectasis in the right base and increased opacity in the left lower lobe compared to 11/23/2018. IMPRESSION: Worsened pulmonary edema and/or pneumonia. Electronically signed by Placido Verma 11/28/2018 7:38 AM
[2018-11-28] MEDS ORDERED: KLOR-CON PO ONE (08:06)
[2018-11-28] MEDS: EFFEXOR XR PO SCH (09:34)
[2018-11-28] MEDS: ISORDIL PO SCH ×3 (09:34→20:47)
[2018-11-28] MEDS: THERA M PLUS PO SCH (09:34)
[2018-11-28] MEDS: MIRALAX PO SCH (09:34)
[2018-11-28] MEDS: LASIX IV SCH ×2 (09:34→20:48)
[2018-11-28] MEDS: ZYLOPRIM PO SCH ×2 (09:35→20:48)
[2018-11-28] MEDS: PATIENT'S OWN MED PO SCH ×2 (09:35→21:40)
[2018-11-28] MEDS: LOVENOX SUBQ SCH (09:35)
[2018-11-28] MEDS: VITAMIN B-12 PO SCH (09:35)
[2018-11-28] MEDS: APRESOLINE PO SCH ×3 (09:35→20:47)
[2018-11-28] MEDS: NORVASC PO SCH (09:35)
[2018-11-28] MEDS: SYMBICORT 160/4.5 MICROGM INHALER INH SCH ×2 (10:23→21:26)
--- NOTE | 2018-11-28 10:27 | PROGRESS NOTE ---
DATE: 11/28/2018 SUBJECTIVE: This patient is feeling about the same compared with yesterday. No acute events overnight. Today she has a positive balance of 780. She is having bowel movements. We will continue with diuresis. ProBNP elevated compared with yesterday. OBJECTIVE: Vital Signs: Temperature 98.5, pulse 80, respiratory rate 18, blood pressure 134/64, oxygen saturation 96% on 4 L of nasal cannula. HEENT: Head normocephalic. No trauma. PERRLA. Neck: Supple. No JVD. No masses. Central trachea. Chest: Decreased breath sounds mostly at the bases with some crepitus and rales at the bases as well. No wheezing. Abdomen: Soft, nontender, nondistended. No hepatosplenomegaly. Cardiovascular: RRR. Systolic murmur. Extremities: 1+ lower extremity edema. No clubbing. No cyanosis. Neurologic: The patient is alert and oriented x 3. No focal deficits. LABORATORY: WBC 9.2, hemoglobin 9.1, hematocrit 28.8, platelets 211,000. Sodium 140, potassium 3.4, chloride 89, bicarbonate 38, BUN 92, creatinine 1.8, glucose 121, calcium 10.2, proBNP 18,475. ASSESSMENT AND PLAN: 1. Acute on chronic diastolic CHF. Continue with same management. ProBNP elevated compared with yesterday. This patient is feeling about the same. We do have a positive balance of 780. Continue with diuresis. 2. Acute on chronic hypoxemic respiratory failure, resolved. She is on home oxygen, as well, around 4 L. She is now status post IV ceftriaxone for community-acquired pneumonia that has basically resolved. Treatment has been stopped on 11/18/2018. 3. Left upper extremity swelling associated with PICC line, better. 4. History of coronary artery disease, atrial fibrillation and sick sinus syndrome, status post pacemaker placement. Continue with the same management. Cardiology on board. 5. History of hypertension. Continue with hydralazine and isosorbide per Cardiology Department. 6. Anemia of chronic disease, stable. Continue with same treatment. 7. Hypertension, stable. 8. Anemia of chronic disease, stable. 9. Chronic kidney disease stage 4, stable. We need to continue monitoring the kidney function. 10. History of CML, in remission. Aware. 11. History of obstructive sleep apnea. Continue with the CPAP machine. Overall, this patient is feeling better, but compared with yesterday she has a positive balance of 780 mL. Kidney function about the same. Actually, the BUN increased a little bit from yesterday and the creatinine decreased from 1.9 to 1.8, but probably this is overall her baseline. ProBNP increased also from 13,506 to 18,475. We will continue with the same treatment, Cardiology Department on board. cc: Jaime Tavarez MD
[2018-11-28] MEDS ORDERED: ZAROXOLYN PO ONE (19:29)
--- NOTE | 2018-11-28 19:56 | PROGRESS NOTE ---
DATE: 11/28/2018 SUBJECTIVE: Patient continues without shortness of breath on supplemental oxygen per nasal cannula. Appetite is modest. There has been no chest pain. OBJECTIVE: Vital Signs: Blood pressure 116/60, heart rate 80, and oxygen saturation 96% on nasal cannula oxygen. Neck: Jugular venous distention remains elevated consistent with central venous pressure of at least 12. Chest: Clear to auscultation. Cardiac: Exam reveals a regular rate and rhythm with grade 2/6 systolic murmur. Throughout upper sternal border. Extremities: Demonstrate mild pretibial edema. LABORATORY DATA: White blood cell count of 9.22, hematocrit 28.8 and hemoglobin 9.1 and platelet count 211,000. Sodium 140, potassium 3.4, chloride 89, carbon dioxide 38, BUN 92, creatinine 1.8, and glucose 121. Pro B-natriuretic peptide level 18,475. IMPRESSION: 1. Congestive heart failure predominantly right-sided. Diuresis seems to have slowed over the last 24 hours and patient still manifests signs of right-sided congestive heart failure. 2. Mild aortic stenosis. 3. Pulmonary hypertension. 4. Chronic kidney disease. 5. Hypertension. RECOMMENDATIONS: 1. Continue IV Lasix. 2. Give extra dose of metolazone to try to promote further diuresis. cc: Arden Siegel MD
[2018-11-29] MEDS: XOPENEX NEB INH SCH ×4 (04:31→19:10)
[2018-11-29 05:54] LABS: POTASSIUM 3.6 mmol/L (3.5-5.1)
[2018-11-29 05:55] LABS: CALCIUM 10.8 mg/dL (8.8-10.2); CREATININE 2.1 mg/dL (0.5-0.9); MAGNESIUM 2.2 mg/dL (1.5-2.7)
[2018-11-29] MEDS: PROTONIX PO SCH (06:13)
[2018-11-29] MEDS: NORVASC PO SCH (09:01)
[2018-11-29] MEDS: ISORDIL PO SCH ×3 (09:02→22:05)
[2018-11-29] MEDS: VITAMIN B-12 PO SCH (09:02)
[2018-11-29] MEDS: THERA M PLUS PO SCH (09:02)
[2018-11-29] MEDS: APRESOLINE PO SCH ×3 (09:02→22:05)
[2018-11-29] MEDS: ZYLOPRIM PO SCH ×2 (09:02→22:05)
[2018-11-29] MEDS: MIRALAX PO SCH (09:03)
[2018-11-29] MEDS: EFFEXOR XR PO SCH (09:03)
[2018-11-29] MEDS: LOVENOX SUBQ SCH (09:03)
[2018-11-29] MEDS: LASIX IV SCH ×2 (09:03→22:05)
[2018-11-29] MEDS: PATIENT'S OWN MED PO SCH ×2 (09:04→22:05)
[2018-11-29] MEDS: SYMBICORT 160/4.5 MICROGM INHALER INH SCH ×2 (10:25→19:10)
--- NOTE | 2018-11-29 11:59 | PROGRESS NOTE ---
DATE: 11/29/2018 SUBJECTIVE: She is sitting up in bed. She seems to be doing okay. No major complaints. Still has some difficulty breathing. OBJECTIVE: Vital signs: Heart rate is 81, respiratory rate 14, temp 97.5 degrees, blood pressure 137/62. She is 95 on 4 L which is her habitual level. Cardiovascular: Regular rate and rhythm. Pulmonary: She had decreased breath sounds, rales on the right side. Her BUN and creatinine are 90 and 2.1 which is stable. It is unchanged since the . That was her numbers on the . Her BNP has gone up to 18,000. It was in the 13,000 range. But compared to admission, it was 22,000. Her x-ray which was done yesterday showed some worsening pulmonary edema. I think she was given extra metolazone. ASSESSMENT AND PLAN: 1. Congestive heart failure exacerbation. We will continue diuretics. She is on high-dose intravenous diuretics per Dr. Browning. I am just going to go ahead and schedule her metolazone daily. She gets it 3 times a day, and we will follow her kidney function. Repeat a chest x-ray tomorrow. 2. Hypertension appears relatively well controlled. 3. Anemia of chronic disease. We will continue to follow her hemoglobin and hematocrit. 4. Coronary artery disease, status post pacemaker placement, history of sick sinus syndrome. She is on her regular medications for the time-being. 5. Acute on chronic hypoxic respiratory failure. She has completed her course of antibiotics. 6. Acute on chronic diastolic heart failure, still adjusting her doses as described. 7. Chronic renal failure, stage 4. We are trying to work around her renal dysfunction with her diuretics. 8. Chronic myelogenous leukemia is stable. 9. Disposition. She really wants to go home. That will be at the discretion of Dr. Browning. He should re-evaluate her today. We will continue to follow. cc: Barney Jefferson MD
--- NOTE | 2018-11-29 14:24 | CARDIOLOGY PROGRESS NOTE ---
DATE: 11/29/2018 SUBJECTIVE: Ms. Estrada reports she continued to improve over the weekend. However, notably on the laboratories, her BNP is up to 18,000 from 13,000 at the low. OBJECTIVE: Vital signs: She is afebrile. Heart rate is 79, blood pressure 134/89. General: She is in no acute distress. Cardiovascular: She sounds to be in a regular rate and rhythm. She has a soft 2/6 systolic murmur best heard at the right upper sternal border. She has no increased work of breathing. She has no lower extremity edema. Chest: Exam is notable for mild reduction in breath sounds in the bilateral bases with bilateral rales in the bases. Abdomen: Soft, nontender. PERTINENT DATA: Sodium 142, potassium 3.6, BUN 90, creatinine 2.1 which has been somewhat fluctuating over the last several days, but relatively stable. ASSESSMENT: Ms. Estrada is a 78-year-old female with pulmonary hypertension and diastolic failure. PLAN: Her intake and output would suggest that she is diuresing, however, her BNP is up. I agree with the change of the metolazone to a daily basis. She does seem to have a relative increase in her diuresis over the last 24 hours. Will continue to follow her laboratories. She does have a basic metabolic panel ordered for the morning. I will order a BNP for the morning as well. cc: Rl Browning MD
[2018-11-29] MEDS: ZAROXOLYN PO SCH (16:06)
[2018-11-30] MEDS: XOPENEX NEB INH SCH ×4 (03:03→21:26)
[2018-11-30 05:34] LABS: HEMATOCRIT 29.1 % (37.0-47.0); HEMOGLOBIN 9.2 g/dL (12.0-16.0); MCH 27.9 PG (27-31); MCHC 31.6 g/dL (33-37); MCV 88.2 FL (81-99); MPV 12.8 FL (7.4-10.4); RBC 3.3 XMIL (4.2-5.4); RDW 18.2 % (11.5-14.5); WBC 9.85 X1000 (4.8-10.8)
[2018-11-30] MEDS: PROTONIX PO SCH (05:59)
[2018-11-30 06:00] LABS: CREATININE 2.1 mg/dL (0.5-0.9); POTASSIUM 3.5 mmol/L (3.5-5.1)
--- NOTE | 2018-11-30 07:09 | Diag Imaging Result Doc PS360 ---
EXAM: CHEST-PORTABLE 11/30/2018 HISTORY: dyspnea TECHNIQUE: AP portable at 0546 COMMENT: The inspiration is suboptimal and the pulmonary vascularity is prominent. There is cardiomegaly. The right hemidiaphragm is elevated as it was on 11/28/2018. Overall there has been no significant change in the appearance of the chest. There is increased opacity generally over the left lung suggesting pulmonary edema. There is some apparent atelectasis in the bases bilaterally. This was also present on 11/23/2018. IMPRESSION: Atelectasis, pulmonary edema and cardiomegaly. Electronically signed by Placido Verma 11/30/2018 7:06 AM
[2018-11-30] MEDS: LASIX IV SCH (08:43)
[2018-11-30] MEDS: ZYLOPRIM PO SCH ×2 (08:44→20:57)
[2018-11-30] MEDS: EFFEXOR XR PO SCH (08:44)
[2018-11-30] MEDS: VITAMIN B-12 PO SCH (08:44)
[2018-11-30] MEDS: ISORDIL PO SCH ×3 (08:44→20:58)
[2018-11-30] MEDS: LOVENOX SUBQ SCH (08:44)
[2018-11-30] MEDS: THERA M PLUS PO SCH (08:44)
[2018-11-30] MEDS: NORVASC PO SCH (08:44)
[2018-11-30] MEDS: ZAROXOLYN PO SCH (08:44)
[2018-11-30] MEDS: APRESOLINE PO SCH ×3 (08:44→20:58)
[2018-11-30] MEDS: MIRALAX PO SCH (08:44)
[2018-11-30] MEDS: PATIENT'S OWN MED PO SCH ×2 (08:45→20:58)
--- NOTE | 2018-11-30 08:46 | PROGRESS NOTE ---
DATE: 11/30/2018 SUBJECTIVE: This patient is feeling more short of breath today compared with yesterday. No acute events overnight. We have a negative balance of 1 L and a total negative balance of 14 L. She has been having bowel movements. She is not complaining of chest pain. OBJECTIVE: Vital signs: Temperature 98, pulse 80, respiratory rate 18, blood pressure 162/70, oxygen saturation 95 on the CPAP machine. HEENT: Head normocephalic, no trauma, PERRLA. Neck: Supple. Central trachea. Chest: Decreased breath sounds mostly at the bases with some crepitus and rales at the bases, as well. No wheezing. Abdomen: Soft, nontender, nondistended, no hepatosplenomegaly. Cardiovascular: RRR, systolic murmur. Extremities: 1+ to 2+ lower extremity edema, no clubbing, no cyanosis. Neurological: The patient is alert, oriented x3, no focal deficits. LABORATORY: WBC 9.8, hemoglobin 9.2, hematocrit 29.1, platelets 215. Sodium 139, potassium 3.5, chloride 88, bicarbonate 36, BUN 83, creatinine 2.1, glucose 124, calcium 10. ProBNP 19,122. ASSESSMENT AND PLAN: 1. Acute on chronic diastolic congestive heart failure, pulmonary hypertension. Will continue with the same management from the proBNPs getting higher, and she is continuing with shortness of breath. Continue with diuresis. We have a negative balance of around 1 L and a total negative balance of 14 L during this hospitalization. Cardiology is apparently following this patient closely. Will continue to monitor. 2. Acute on chronic hypoxemic respiratory failure, resolved. She is on home oxygen around 4 L. She is status post ceftriaxone for community-acquired pneumonia that has basically resolved. Treatment has been stopped already on 11/18/2017. 3. Left upper extremity swelling associated with PICC line, better. There is no evidence of acute deep vein thrombosis of superficial venous thrombosis involving the left upper extremity. 4. History of coronary artery disease, atrial fibrillation, and sick sinus syndrome, status post pacemaker placement. Continue with the same management. Cardiology on board. 5. History of hypertension. Continue with same management. Blood pressure a little bit elevated. 6. Anemia of chronic disease, stable. 7. Hypertension, stable. 8. Chronic kidney disease stage 4, stable. Continue with same management and monitoring the kidney function. 9. History of chronic myelogenous leukemia, in remission, aware. 10.History of obstructive sleep apnea, continue with CPAP machine. cc: Jaime Tavarez MD
[2018-11-30] MEDS ORDERED: ZAROXOLYN PO SCH (09:00)
[2018-11-30] MEDS: SYMBICORT 160/4.5 MICROGM INHALER INH SCH ×2 (10:39→19:46)
[2018-11-30] MEDS: LASIX PO SCH (20:58)
[2018-12-01] MEDS: XOPENEX NEB INH SCH ×4 (05:43→21:41)
[2018-12-01] MEDS: PROTONIX PO SCH (06:04)
[2018-12-01 06:20] LABS: CALCIUM 9.9 mg/dL (8.8-10.2); CREATININE 2.1 mg/dL (0.5-0.9); POTASSIUM 3.2 mmol/L (3.5-5.1)
[2018-12-01] MEDS ORDERED: KLOR-CON PO ONE (07:58)
[2018-12-01] MEDS: ZAROXOLYN PO SCH (08:58)
[2018-12-01] MEDS: NORVASC PO SCH (08:58)
[2018-12-01] MEDS: THERA M PLUS PO SCH (08:58)
[2018-12-01] MEDS: ISORDIL PO SCH ×3 (08:58→21:11)
[2018-12-01] MEDS: APRESOLINE PO SCH ×3 (08:58→21:11)
[2018-12-01] MEDS: EFFEXOR XR PO SCH (08:58)
[2018-12-01] MEDS: VITAMIN B-12 PO SCH (08:58)
[2018-12-01] MEDS: LASIX PO SCH (08:58)
[2018-12-01] MEDS: ZYLOPRIM PO SCH ×2 (08:58→21:11)
[2018-12-01] MEDS: LOVENOX SUBQ SCH (08:59)
[2018-12-01] MEDS: MIRALAX PO SCH (08:59)
[2018-12-01] MEDS: PATIENT'S OWN MED PO SCH ×2 (08:59→21:11)
--- NOTE | 2018-12-01 09:02 | PROGRESS NOTE ---
DATE: 12/01/2018 SUBJECTIVE: No acute events overnight. She is still complaining of some shortness of breath. We have a positive balance of 20 mL. OBJECTIVE: Vital Signs: Temperature 97.4 degrees, pulse 80, respiratory rate 22, blood pressure 127/69, oxygen saturation 97% on 4 L of nasal cannula. HEENT: Head normocephalic. No trauma. PERRLA. Neck: Supple. No JVD. No masses. Central trachea. Chest: Decreased breath sounds mostly at the bases with some crepitus at the bases as well. No wheezing. Abdomen: Soft. Nontender. Nondistended. No hepatosplenomegaly. Cardiovascular: Regular rhythm and rate. Systolic murmur. Extremities: 2+ lower extremity edema, mostly on her feet. Neurological: The patient is alert and oriented x3. No focal deficits. LABORATORY: Sodium 139, potassium 3.2, chloride 88, bicarbonate 34, BUN 95, creatinine 2.1, glucose 121, calcium 9.9, BNP 18,373. ASSESSMENT AND PLAN: 1. Acute on chronic diastolic heart failure, pulmonary hypertension. We will continue with the same management. Cardiology Department on board. 2. Acute on chronic hypoxemic respiratory failure, resolved. She is on home oxygen around 4 L. She is status post ceftriaxone for community-acquired pneumonia that has been basically resolved. Treatment has been stopped already on 11/18/2017. 3. Community-acquired pneumonia. As above. 4. Left upper extremity swelling associated with PICC line, better. There is no evidence of acute DVT or superficial venous thrombosis involving the left upper extremity. 5. History of coronary artery disease, atrial fibrillation, and sick sinus syndrome, status post pacemaker placement. 6. History of hypertension, continue with same management. 7. Anemia of chronic disease. Stable. 8. Hypertension, stable. 9. Chronic kidney disease, stage 4, stable. 10. History of chronic myeloid leukemia, in remission, aware. 11. History of obstructive sleep apnea. Continue with the CPAP machine. 12. Hypokalemia. I will replace the potassium. cc: Jaime Tavarez MD
[2018-12-01] MEDS: NS NEB INH SCH (10:03)
[2018-12-01] MEDS: SYMBICORT 160/4.5 MICROGM INHALER INH SCH ×2 (10:03→21:41)
[2018-12-01 19:27] LABS: PROTEIN CREAT RATIO 0.7; UR CREAT RANDOM 80.7 mg/dL (11-20); UR PROT RANDOM 53.5 mg/dL
[2018-12-01] MEDS ORDERED: MBX SOLUTION MT PRN (19:55)
[2018-12-01] MEDS: LASIX IV SCH (21:11)
--- NOTE | 2018-12-01 23:14 | CARDIOLOGY PROGRESS NOTE ---
DATE: 12/01/2018 SUBJECTIVE: Ms. Estrada continues to have some issues with swelling and shortness of breath. Her I Os reflect a negative balance over the last 24 to 48 hours. However, on some of these, there is very poor intake recording. PHYSICAL EXAMINATION: Vital Signs: She is afebrile. Her heart rate is 80. Her blood pressure is 124/51. Her weights seem to be predominantly at 140 over the last several days. It is 143 today. I Os over the last couple of days are consistently negative. General: She is in no acute distress. Cardiovascular: She sounds to be in a regular rate and rhythm. She has a 2/6 systolic murmur at the right upper sternal border. She has 1+ bilateral lower extremity edema, and warm and well-perfused extremities. Chest: Mild basilar rales. Abdomen: Soft, nontender, nondistended. She has no obvious organomegaly. Skin: Warm and dry throughout. PERTINENT LABORATORY DATA: Her sodium is 139, potassium 3.2. Her BUN is 95, with a creatinine of 2.1. ASSESSMENT: Ms. Estrada is a 78-year-old female with chronic kidney disease and predominantly right- sided heart failure. PLAN: I have asked Dr. Jaramillo to evaluate the patient to assist with diuresis. We seem to continually have difficulty in getting effective diuresis, and I am wondering if we are having adequate recording of her intake and output. She has continuously recorded to be negative in her output, but we continue to run very high proBNPs that are not really improving. In addition, she seems symptomatically to continue to be quite short of breath. Her BUN and creatinine ratio is quite high. Her GFR right now is at 23, with relatively stable creatinines over the last several days. Her potassium has been repleted. I have switched her back over to IV diuresis. We will check an albumin today, and we have ordered a spot protein and creatinine. cc: Rl Browning MD
[2018-12-02] MEDS: DUONEB (A & A) INH PRN (01:50)
[2018-12-02] MEDS: XOPENEX NEB INH SCH ×4 (04:00→22:37)
[2018-12-02] MEDS: PROTONIX PO SCH ×2 (05:56→08:57)
[2018-12-02 06:01] LABS: CALCIUM 10.1 mg/dL (8.8-10.2); CREATININE 2.4 mg/dL (0.5-0.9); POTASSIUM 4.5 mmol/L (3.5-5.1)
[2018-12-02] MEDS: ZAROXOLYN PO SCH (08:58)
[2018-12-02] MEDS: LASIX IV SCH (08:58)
[2018-12-02] MEDS: EFFEXOR XR PO SCH (08:58)
[2018-12-02] MEDS: NORVASC PO SCH (08:58)
[2018-12-02] MEDS: LOVENOX SUBQ SCH (08:59)
[2018-12-02] MEDS: ISORDIL PO SCH ×3 (08:59→20:30)
[2018-12-02] MEDS: APRESOLINE PO SCH ×3 (08:59→20:29)
[2018-12-02] MEDS: PATIENT'S OWN MED PO SCH ×2 (08:59→20:31)
[2018-12-02] MEDS: MIRALAX PO SCH (08:59)
[2018-12-02] MEDS: VITAMIN B-12 PO SCH (08:59)
[2018-12-02] MEDS: THERA M PLUS PO SCH (08:59)
[2018-12-02] MEDS: ZYLOPRIM PO SCH ×2 (08:59→20:30)
--- NOTE | 2018-12-02 08:59 | PROGRESS NOTE ---
DATE: 12/02/2018 SUBJECTIVE: This patient is still complaining of shortness of breath, and it looks like it is getting worse. Right now she is using a Ventimask. Per patient's request, I will ask for Pulmonary Department evaluation, Dr. Brown. I will ask also for an x-ray an ABGs today. She has been placed back on IV Lasix and Nephrology Department has been consulted. OBJECTIVE: Vital Signs: Temperature 97.6 degrees, pulse 82, respiratory rate 19, blood pressure 144/62, oxygen saturation 97% on a Venturi mask. HEENT: Head normocephalic. No trauma. PERRLA. Neck: Supple. No JVD. No masses. Central trachea. Chest: Decreased breath sounds mostly at the bases with crepitus and crackles bilaterally. No wheezing. Abdomen: Soft, nontender, nondistended. No hepatosplenomegaly. Cardiovascular: Regular rhythm and rate. Systolic murmur. Extremities: There is 2+ to 3+ lower extremity edema. No clubbing. No cyanosis. Neurological: The patient is alert and oriented x3. No focal deficits. LABORATORY DATA: Sodium 138, potassium 4.5, chloride 89, bicarbonate 34, BUN 92, creatinine 2.4, glucose 147, calcium 10.1. ASSESSMENT AND PLAN: 1. Acute on chronic diastolic heart failure, pulmonary hypertension. Continue with diuresis. Cardiology Department and Nephrology Department are following this patient. We will wait for recommendations. Creatinine increased from 2.1 to 2.4 compared with yesterday, we have a negative balance of 370 mL in 24 hours. 2. Acute on chronic hypoxemic respiratory failure. She has been placed on a Ventimask. She used to be on 4 L of oxygen with nasal cannula even at home. She is status post ceftriaxone for community-acquired pneumonia and has been basically resolved. The treatment has been stopped already on 11/18/2018. 3. Community-acquired pneumonia. As above. 4. Left upper extremity swelling associated with peripherally inserted central catheter line, better. No evidence of deep venous thrombosis or superficial venous thrombosis involving the left upper extremity. 5. History of coronary artery disease, atrial fibrillation, sick sinus syndrome. Status post pacemaker placement. 6. History of hypertension. Continue with same management. 7. Anemia of chronic disease, stable. 8. Hypertension, stable. 9. Chronic kidney disease stage 4. Creatinine increased compared with yesterday from 2.1 to 2.4. Will continue the same management for now. Nephrology Department consulted. 10. History of chronic myeloid leukemia, in remission, aware. 11. History of obstructive sleep apnea. Continue with the CPAP machine. 12. Hypokalemia. Potassium today is normal. cc: Jaime Tavarez MD
--- NOTE | 2018-12-02 09:34 | Diag Imaging Result Doc PS360 ---
EXAM: CHEST-PORTABLE - 12/02/2018 HISTORY: SOB TECHNIQUE: Portable chest COMPARISON: 11/30/2018 FINDINGS: There is elevation of the right hemidiaphragm similar to prior, but there is been some increase in atelectasis at the right base. There is ill-defined infiltrate or edema on the left. There are small bilateral pleural effusions. There is no pneumothorax identified. Heart size appears stable. IMPRESSION: Elevation of right hemidiaphragm similar to prior, with some increase in atelectasis at right base. Ill-defined infiltrate or edema on the left. Small bilateral pleural effusions. Electronically signed by Kilo Parrish 12/02/2018 9:32 AM
[2018-12-02] MEDS: SYMBICORT 160/4.5 MICROGM INHALER INH SCH ×2 (09:45→19:30)
[2018-12-02 09:53] LABS: ALLEN TEST YES; BE 13.8 mmoll (-3.0-3.0); BLOOD TYPE ARTERIAL; HCO3-(ACT) 35.6 mmoll (20.0-26.0); METHB 1.7 % (0.0-1.5); O2(CT) 12.6 mL/dL (15.0-23.0); O2HB 91.8 % (95.0-99.0); PO2(98.6) 63 mmHg (60-100); SAMPLE BLOOD; THB 9.7 g/dL (11.5-17.4); pH(98.6) 7.47 (7.35-7.45)
[2018-12-02 09:54] LABS: MODALITY CANNULA; PCO2(98.6) 54 mmHg (35-45)
--- NOTE | 2018-12-02 11:01 | Diag Imaging Result Doc PS360 ---
EXAM: CT THORAX W/O CONTRAST 12/02/2018 HISTORY: increased work of breathing TECHNIQUE: This exam was performed using automated exposure control, adjustment of mA or kV according to patient size, and/or use of iterative reconstruction technique. COMMENT: The current study is compared with 11/08/2016. There is generally increased interstitial opacity bilaterally with patchy areas of alveolar opacification in both upper lobes the right middle lobe and both lower lobes. This is particularly true of the left lower lobe. These changes are worse than what was present on the previous study. There are bilateral pleural effusions which was also the case at the time the previous study and in fact there is somewhat less pleural fluid than on the previous exam. There is worsened mediastinal adenopathy with a prevascular node seen on image 32 measuring over 2 cm in long axis compared to 1.8 cm previously there is a paratracheal node on image 37 measuring over 12 mm compared to less than 9 mm previously. There is cardiomegaly. There are coronary calcifications and calcifications of the left mitral annulus. There is a small amount of ascites. There is bilateral adrenal hyperplasia which was also present at the time the previous study. The regional skeleton appears to be stable. IMPRESSION: Worsened pulmonary edema plus minus pneumonia with pleural effusions and ascites. Worsened mediastinal adenopathy. Electronically signed by Placido Verma 12/02/2018 10:59 AM
--- NOTE | 2018-12-02 11:37 | NEPHROLOGY CONSULTATION ---
DATE: 12/02/2018 REASON FOR ADMISSION: Increased work of breathing and lower extremity swelling. REASON FOR CONSULT: Acute kidney injury with continued swelling, and assistance with diuresis. CONSULTING PHYSICIAN: Dr. Rl Browning. HISTORY OF PRESENT ILLNESS: Ms. Estrada is a 78-year-old, white female who has been hospitalized for congestive heart failure, increased work of breathing, and lower extremity swelling since the . She states that she lives alone. She usually is able to get about and take care of herself. During her hospitalization, she has received large doses of Lasix. Her creatinine at this time is now up to 2.4 from yesterday of 2.1. It appears her baseline creatinine is 1.3 prior to this hospitalization. The patient has been getting Lasix every day. Yesterday evening it was increased to 80 mg IV b.i.d. followed by metolazone 5 mg daily. There is no need for a fluid restriction. It looks like she is in a negative fluid balance with poor intake , though it is questionable if it is strict intake and output, and accurate. She denies any chest pain. Positive for lower extremity swelling. She denies any nausea or vomiting. No diarrhea. No fever or chills. She states that she avoids salt. No headache. No cough. No recent falls. She has been on CIC. She was started on this IV Lasix. A PICC line was placed to the left AC and she continues to receive supplemental oxygen. This morning, she is on 50% Ventimask. PAST MEDICAL HISTORY: Sick sinus syndrome with a permanent pacemaker, paroxysmal atrial fibrillation, anticoagulation secondary to GI bleed has been avoided, GI bleed secondary to anticoagulation, mitral valve regurgitation with prolapse, coronary artery disease, diastolic congestive heart failure, pulmonary edema, peripheral edema. She has chronic kidney disease stage 3 with a baseline creatinine of 1.3 noted in 2017, diverticulitis, breast cancer , chronic leukemia which is in remission, anemia, obesity. It is noted her last echocardiogram before admission was on 11/02/2016 showing ejection fraction of 70% with a systolic pressure of 80. The patient has had an echo completed on 11/15/2018 indicating an ejection fraction of 55% with indications of aortic valve leaflet calcification, concentric left ventricular hypertrophy, moderate to severe mitral annular calcification, diastolic dysfunction, and pulmonary artery pressure of 70 mm. She has trace pulmonary regurgitation.. PREVIOUS SURGICAL HISTORY: Permanent pacemaker placement, hysterectomy, partial colectomy for polyp issues. SOCIAL HISTORY: She lives alone. She is a . She denies any tobacco, alcohol, or illicit drug use though she did have tobacco smoke exposure from her previous spouse. FAMILY HISTORY: Negative for renal disease. ALLERGIES: Listed as no known drug allergies. HOME MEDICATIONS: Listed as Ventolin inhaler, Symbicort, vitamin B12, Flonase, Lasix, hydralazine, Reglan, Protonix, MiraLAX, and Effexor. REVIEW OF SYSTEMS: Review of systems x10 with pertinent positives listed above in the HPI. VITAL SIGNS: Temperature 97.6 degrees, blood pressure 164/92, heart rate 72, respirations 25. She is on 50% Ventimask. Last recorded saturation 95%. She has had 180 in, 550 mL out. Again, she is in a 14.5 L negative fluid balance since admission. LABORATORY DATA: Sodium 138, potassium 4.5, chloride 89, CO2 34, BUN 92, creatinine 2.4, glucose 147. Anion gap is 15. Calcium 10.1. Previous hemoglobin 9.2. DIAGNOSTIC STUDIES: The patient's chest x-ray this a.m. is recorded is elevated right hemidiaphragm. Increase in atelectasis to the right base. Infiltrates or edema on the left with small bilateral pleural effusions. PHYSICAL EXAMINATION: General: This is a 78-year-old elderly female. She appears chronically ill. She appears weak. No acute distress. Skin: Warm and dry. HEENT: Normocephalic, atraumatic. Conjunctivae pale pink. She has PRIYANKA. Mucous membranes are dry. Neck: Supple. Trachea midline. No evidence of JVD. Cardiovascular: She is regular rate and rhythm. She has a systolic murmur. Lungs: Low inspiratory effort. Diminished breath sounds to the left lung. Clear to auscultation to the right anterior. She remains on a Ventimask of 50% . Abdomen: Soft, large, round, nontender. Positive bowel sounds. Genitourinary: Carrasco catheter is in place. Clear yellow urine noted. Extremities: 1+ edema. These are dependent. She does have edema to her left hand. This is below the insertion of her PICC line. Neurological: She is alert and oriented x3. Able to give a good history. ASSESSMENT AND PLAN: 1. Acute kidney injury, more than likely. This is secondary to her diuretics. Even though the patient does appear to be in a negative fluid balance, more than likely this is prerenal. Chest x-ray shows infiltrates, bilateral. We will check a CT scan of the chest without contrast to evaluate her diminished lung sounds on the left for follow up after her chest x- ray this morning. She does continue on Lasix 80 mg b.i.d. and metolazone 5 mg a.m. 2. Electrolytes and acid-base balance. These are fairly stable. 3. Anemia. This remains low. 4. Congestive heart failure. This continues to be followed by Cardiology. We will leave the diuretics as dosed at this time. I would like to thank you for allowing us to follow with this patient. Dictated by CLAUDIA Berry for Donato Jaramillo MD [id number] encounter. Data reviewed and discussed with Danni José. I agree with the above assessment and plan of care. cc: CLAUDIA Berry MD [facility]
[2018-12-02] MEDS ORDERED: MYCOSTATIN SUSP PO SCH (13:00)
[2018-12-02] MEDS ORDERED: LEVAQUIN 500 MG/D5W 500 MG/100 ML IVPB IV ONE (13:08)
[2018-12-02 13:55] LABS: BASO# 0.02 X1000 (0.0-0.2); BASO% 0.2 % (0.0-0.8); EOS# 0.03 X1000 (0.0-0.7); EOS% 0.3 % (0.0-10.0); HEMATOCRIT 30.7 % (37.0-47.0); HEMOGLOBIN 9.8 g/dL (12.0-16.0); IMM GRAN# 0.02 X1000 (0.0-0.04); IMM GRAN% 0.2 % (0.0-0.5); LYMPH# 0.46 X1000 (1.2-3.4); LYMPH% 3.9 % (20.5-51.1); MCH 28.1 PG (27-31); MCHC 31.9 g/dL (33-37); MONO# 0.39 X1000 (0.11-0.59); MONO% 3.3 % (1.7-9.3); MPV 12.5 FL (7.4-10.4); NEUT# 10.91 X1000 (1.4-6.5); NEUT% 92.1 % (42.2-75.2); PLT 224 X1000 (130-400); RBC 3.49 XMIL (4.2-5.4); RDW 18.3 % (11.5-14.5); WBC 11.83 X1000 (4.8-10.8)
--- NOTE | 2018-12-02 14:08 | CARDIOLOGY PROGRESS NOTE ---
DATE: 12/02/2018 SUBJECTIVE: Ms. Estrada today feels worse. She is more short of breath. She is having some soreness inside her mouth. PHYSICAL EXAMINATION: She is afebrile. Heart rate 80, blood pressure 126/69. Generally, she is in no acute distress. Cardiovascular: She sounds to be in a regular rate and rhythm with a 2/6 systolic murmur best heard at the right upper sternal border. Her abdomen is soft, nontender. She has no obvious organomegaly. Her chest exam is notable for bilateral rales in the lower 1/3 to 1/2. PERTINENT DATA: She has a sodium of 138, potassium 4.5. BUN 92, creatinine is 2.4 which is up from 2.1 yesterday. ASSESSMENT: Ms. Estrada is a 78-year-old female who presented with volume overload. PLAN: She has somewhat deteriorated over the last 24 to 48 hours. Her Input and Output have continued to be negative. Her renal function is somewhat worse. I am concerned that maybe this may not be volume and possibly could have a pneumonia. She had a chest CT performed suggesting worsened edema plus or minus pneumonia with some pleural effusions. She has not had a significant elevation in her white count, but it has not been checked since 11/30/2018. I have ordered a CBC today. I have ordered cultures and asked the hospitalist their opinion regarding potential antibiotics in this patient. The pulmonologists are seeing the patient in addition to the nephrologists. We appreciate their input cc: Rl Browning MD
[2018-12-02 14:47] LABS: BANDS 1 % (0-1); LYMPHS 2 % (21-51); MONO 2 % (1-9); SEGS 95 % (42-75)
[2018-12-02] MEDS: MAXIPIME 1 GM in NS 50 ML IV SCH (15:35)
[2018-12-02] MEDS: MYCELEX TROCHE PO SCH ×2 (15:36→20:30)
[2018-12-02] MEDS: ZOFRAN IV PRN ×2 (18:28→23:06)
--- NOTE | 2018-12-03 01:50 | CONSULTATION ---
DATE OF CONSULTATION: 12/02/2018 REQUESTING PROVIDER: Dr. Jaime Glover. REASON FOR CONSULTATION: Respiratory failure. HISTORY OF PRESENT ILLNESS: This is a 78-year-old female with A significant medical history including chronic myelogenic leukemia, hypertension, pulmonary hypertension, congestive heart failure, atrial fibrillation, mitral valve prolapse, coronary artery disease, COPD, asthma, obstructive sleep apnea, sick sinus syndrome, chronic kidney disease, severe diverticulosis, and breast cancer. She has been directly admitted from Dr. Rl Browning's office since 11/12/2018, with congestive heart failure exacerbation and lpqns-co-vthxccs hypoxemic, hypercapnic respiratory failure. She was on oxygen at 4 L, but since yesterday afternoon, her respiratory status started declining, with worsening shortness of breath, and required increasing oxygen at 6 L or Ventimask at times. She has been treated with ceftriaxone for community-acquired pneumonia from 11/12/2018 to 11/18/2018. At the time of my examination, the patient reports in the last about 36 hours, she started feeling not well. She has some sore throat and difficulty swallowing. Her appetite is losing, especially since last night, she has no appetite at all. She feels weaker, and started a dry cough early this morning. She also reports continuous chest tightness and pedal edema. She denies wheezing, fever, chills, nausea, vomiting, diarrhea, constipation, chest pain, or palpitation. PAST MEDICAL AND SURGICAL HISTORY: 1. Chronic myelogenous leukemia, in remission, status post bone marrow biopsy. Followed by Dr. Laci Kimble, on daily chemotherapy drug, Tasigna. 2. Hypertension. 3. Pulmonary hypertension. 4. Congestive heart failure, diastolic. 5. Atrial fibrillation, not on anticoagulation, secondary to recurrent GI bleeding. 6. Mitral wall prolapse. 7. Coronary artery disease. 8. COPD, on continuous oxygen 4 L at home. 9. Asthma. 10. Obstructive sleep apnea, on CPAP at home. 11. Osteoarthritis. 12. Sick sinus syndrome, status post permanent pacemaker placement. 13. Chronic kidney disease, stage 3, followed by Dr. Jaramillo. 14. Severe diverticulosis, with diverticular bleeding. Last colonoscopy on revealed mmxknoer-hu-norlrf diverticulosis, without active bleeding, status post left hemicolectomy by Dr. Patino on 06/01/2016. 15. Right breast cancer, status post right breast lumpectomy, with lymph node removal. 16. Hysterectomy. 17. Bladder surgery. SOCIAL HISTORY: The patient lives alone. Her elder son checks on her daily. She has no history of alcohol, tobacco, or illicit drug use, but has a history of secondhand smoking exposure. FAMILY HISTORY: Positive for heart problems and cancer. ALLERGIES: No known drug allergies. REVIEW OF SYSTEMS: A 10-point review of systems was conducted, and the pertinent is listed within the HPI, otherwise noncontributory. PHYSICAL EXAMINATION: Vital Signs: Temperature 97.6 degrees, blood pressure 144/62, pulse 82, respiratory rate 19, oxygen saturation 97% on nasal cannula at 6 L. General: Appears chronically ill. Currently, resting quietly in a chair, with her elder son at the bedside. Shows no acute respiratory distress. Has a dry cough occasionally. HEENT: Atraumatic. Trachea midline. Mucosa pink and dry. Some small white spots in the back of the throat noted. Respiratory: Chest expansion equal bilaterally. Shallow breathing. Diminished breathing sounds bibasilarly, with the right side worse than the left side. Mild early inspiratory crackles bilaterally. Cardiovascular: Regular rate and rhythm, with murmur noted. Gastrointestinal: Bowel sounds present in all 4 quadrants. Soft, nontender, and nondistended. Extremities: Bilateral lower extremity 2+ pitting edema, left upper extremity 3+ pitting edema. No clubbing or cyanosis. Dorsalis pedis 2+ bilaterally. Neurologic: Alert and oriented x3. Generalized weakness. Speech fluent. Follows commands. IMAGING DATA: Chest x-ray revealed stable elevation of right hemidiaphragm, with some increase in atelectasis at the right base, ill-defined infiltrate or edema on the left, and a small bilateral pleural effusion. Chest CT revealed worsening pulmonary edema, plus/minus pneumonia, with pleural effusions and ascites, worsened mediastinal adenopathy. LAB DATA: White blood cells 11.83, hemoglobin 9.8, hematocrit 30.7, platelets 224,000. Sodium 138, potassium 4.5, chloride 89, carbon dioxide 34, BUN 92, creatinine 2.4, glucose 147. ABG: pH 7.47, pCO2 54, PO2 63, HCO3 35.6, base excess 14.8, and oxyhemoglobin 91.8. ASSESSMENT: This is a 78-year-old female, with a significant medical history, including chronic myelogenic leukemia, hypertension, pulmonary hypertension, congestive heart failure, atrial fibrillation, mitral valve prolapse, coronary artery disease, Chronic obstructive pulmonary disease, asthma, obstructive sleep apnea, sick sinus syndrome, chronic kidney disease, severe diverticulosis, and breast cancer. She has been directly admitted from Dr. Rl Browning's office since 11/12/2018, with congestive heart failure exacerbation and acute-on- chronic hypoxemic respiratory failure. 1. Hjhnc-px-agfftpr hypoxemic, hypercapnic respiratory failure. 2. Pneumonia 3. Congestive heart failure exacerbation 4. Mygdv-vg-wpsfuvo kidney disease. 5. Obstructive sleep apnea. 6. Mild oropharyngeal candidiasis, likely secondary to chemotherapy. PLAN: 1. Continue supplemental oxygen. Continue BiPAP at bedtime and as needed. We will follow up with ABG, chest x-ray, CBC and BMP. 2. Continue broad-spectrum antibiotics and antifungal medication. 3. Continue bronchodilators. 4. Follow up with blood culture. 5. Encourage adequate hydration. 6. Dr. Browning and Dr. Jaramillo are on board. 7. Continue GI and DVT prophylaxis. Thank you for the courtesy of this consult. Dictated by CLAUDIA Cuevas for Migel Brown MD cc: CLAUDIA Cuevas MD [facility]
[2018-12-03 05:10] LABS: ALLEN TEST YES; BE 11.8 mmoll (-3.0-3.0); BLOOD TYPE ARTERIAL; METHB 1.3 % (0.0-1.5); O2HB 91.9 % (95.0-99.0); PO2(98.6) 66 mmHg (60-100); SAMPLE BLOOD; pH(98.6) 7.39 (7.35-7.45)
[2018-12-03 05:13] LABS: MODALITY CANNULA
[2018-12-03] MEDS: PROTONIX PO SCH ×2 (05:18→06:08)
[2018-12-03] MEDS: MYCELEX TROCHE PO SCH ×3 (05:18→20:51)
[2018-12-03 06:05] LABS: CALCIUM 10.2 mg/dL (8.8-10.2); CREATININE 2.6 mg/dL (0.5-0.9); MAGNESIUM 2.6 mg/dL (1.5-2.7); POTASSIUM 4.3 mmol/L (3.5-5.1)
[2018-12-03 06:14] LABS: BASO# 0.02 X1000 (0.0-0.2); BASO% 0.2 % (0.0-0.8); EOS# 0.11 X1000 (0.0-0.7); EOS% 0.9 % (0.0-10.0); HEMATOCRIT 29.6 % (37.0-47.0); HEMOGLOBIN 9.3 g/dL (12.0-16.0); IMM GRAN# 0.02 X1000 (0.0-0.04); IMM GRAN% 0.2 % (0.0-0.5); LYMPH% 4.1 % (20.5-51.1); MCH 27.8 PG (27-31); MCHC 31.4 g/dL (33-37); MCV 88.6 FL (81-99); MONO# 0.88 X1000 (0.11-0.59); MONO% 7.1 % (1.7-9.3); MPV 12.9 FL (7.4-10.4); NEUT# 10.81 X1000 (1.4-6.5); NEUT% 87.5 % (42.2-75.2); PLT 221 X1000 (130-400); RBC 3.34 XMIL (4.2-5.4); RDW 18.2 % (11.5-14.5); WBC 12.34 X1000 (4.8-10.8)
[2018-12-03] MEDS: XOPENEX NEB INH SCH ×4 (06:16→21:43)
[2018-12-03 06:35] LABS: EOS 1 % (1-10); LYMPHS 5 % (21-51); MONO 9 % (1-9); SEGS 85 % (42-75)
--- NOTE | 2018-12-03 07:18 | Diag Imaging Result Doc PS360 ---
EXAM: CHEST-PORTABLE 12/03/2018 HISTORY: dyspnea TECHNIQUE: AP portable at 0618 COMMENT: There is bibasilar atelectasis and/or pneumonia. There may be pulmonary edema. There is apparent bilateral pleural effusion. Compared to 12/02/2018 the right base is more opacified. IMPRESSION: Worsening atelectasis and/or pneumonia right lower lobe. Electronically signed by Placido Verma 12/03/2018 7:16 AM
[2018-12-03] MEDS: ISORDIL PO SCH ×3 (08:22→20:50)
[2018-12-03] MEDS: LOVENOX SUBQ SCH ×2 (08:22→08:56)
[2018-12-03] MEDS: VITAMIN B-12 PO SCH (08:23)
[2018-12-03] MEDS: EFFEXOR XR PO SCH (08:23)
[2018-12-03] MEDS: NORVASC PO SCH (08:23)
[2018-12-03] MEDS: APRESOLINE PO SCH ×3 (08:23→20:49)
[2018-12-03] MEDS: THERA M PLUS PO SCH (08:23)
[2018-12-03] MEDS: MAXIPIME 1 GM in NS 50 ML IV SCH (08:24)
[2018-12-03] MEDS: ZYLOPRIM PO SCH ×2 (08:24→20:51)
[2018-12-03] MEDS: MIRALAX PO SCH (08:25)
[2018-12-03] MEDS: PATIENT'S OWN MED PO SCH ×2 (08:25→20:50)
[2018-12-03 08:37] LABS: URINE SOURCE CATH
[2018-12-03 08:39] LABS: BILIRUBIN URINE NEGATIVE (NEGATIVE); BLOOD URINE MODERATE (NEGATIVE); COLOR YELLOW; GLUCOSE URINE NEGATIVE (NEGATIVE); KETONE URINE TRACE mg/dL (NEGATIVE); LEUKOCYTES URINE MODERATE (NEGATIVE); NITRITE URINE NEGATIVE (NEGATIVE); PH URINE 5.5; PROTEIN URINE 100 mg/dL (NEGATIVE); SP GRAVITY URINE 1.019; TURBIDITY URINE HAZY (CLEAR); UROBILINOGEN URINE NORMAL (NORMAL)
[2018-12-03 08:49] LABS: UR EPITHELIAL CELLS <10 /HPF (<10); URINE BACTERIA NEGATIVE /HPF; URINE RBC TNTC /HPF (<10)
--- NOTE | 2018-12-03 08:53 | PROGRESS NOTE ---
DATE: 12/03/2018 SUBJECTIVE: This patient feels better even though the lab work looks a little bit worse. The proBNP is higher today at 32,875, and her creatinine is 2.6 today. We have consulted Pulmonary Department and Nephrology Department to evaluate this patient. For now, I will continue with the same management. Cardiology Department following this patient closely as well. She has been having episodes of nausea, but no vomiting. OBJECTIVE: Vital Signs: Temperature 99.1 degrees, pulse 66, respiratory rate 18, blood pressure 131/70. Oxygen saturation 98 on the CPAP machine. HEENT: Head normocephalic. No trauma. PERRLA. Neck: Supple. No JVD. No masses. Central trachea. Chest: Decreased breath sounds globally. Coarse breath sounds with crackles bilaterally, mostly from the midlung down. No wheezing, some crepitus. Abdomen: Soft, nontender, nondistended. No hepatosplenomegaly. Cardiovascular: RRR. Systolic murmur. Extremities: There is 2+ to 3+ lower extremity edema. It looks like her left lower extremity is more swollen compared with the right lower extremity. Neurological: She is alert and oriented x3. No focal neurological deficits. She does have generalized weakness. LABORATORY: WBC 12.3, hemoglobin 9.3, hematocrit 29.6, platelets 221,000. Sodium 135, potassium 4.3, chloride 87, bicarbonate 34, BUN 105, creatinine 2.6, glucose 129, calcium 10.2 ProBNP increased from 18,373 to 32,875. ASSESSMENT AND PLAN: 1. Acute on chronic diastolic heart failure, pulmonary hypertension. For now, we will continue with the same management. Even though she is feeling better, her lab work looks worse today. Urine output is low, and it looks like we have a positive balance today looks of 615 mL. 2. Acute on chronic hypoxemic and hypercarbic respiratory failure. Will continue with the with oxygen supplementation. CT scan showed worsening pulmonary edema plus/minus pneumonia with pleural effusion and ascites, and worsened mediastinal adenopathy so we will place this patient on broad-spectrum antibiotics. We will continue with the same management. 3. Community-acquired pneumonia. As above, this patient received 1 round of antibiotics that were stopped on 11/18/2018 and now, we restarted antibiotics yesterday. 4. Left upper extremity swelling associated with peripherally inserted central catheter line. This is better. No evidence of deep venous thrombosis or superficial venous thrombosis involving the left upper extremity. 5. History of coronary artery disease, atrial fibrillation, sick sinus syndrome, status post pacemaker placement. 6. History of hypertension. Continue with same management. 7. Anemia of chronic disease, stable. 8. Hypertension, stable. 9. Acute on chronic kidney disease. Probably, this is prerenal. The creatinine is trending up. The urine output is still low. Nephrology Department on board. 10. History of conservative management, in remission. Aware. 11. History of obstructive sleep apnea. Continue with the continuous positive airway pressure machine. 12. Hypokalemia. Potassium is normal today. cc: Jaime Tavarez MD
[2018-12-03 08:55] LABS: URINE YEAST NONE SEEN
[2018-12-03] MEDS: SYMBICORT 160/4.5 MICROGM INHALER INH SCH ×2 (09:54→19:35)
[2018-12-03] MEDS: ZOFRAN IV PRN (10:18)
[2018-12-03 10:22] LABS: UR CREAT RANDOM 152.1 mg/dL (11-20); UR PROT RANDOM 155.8 mg/dL
[2018-12-03] MEDS ORDERED: ATIVAN IV ONE (14:03)
--- NOTE | 2018-12-03 15:28 | CARDIOLOGY PROGRESS NOTE ---
DATE: 12/03/2018 SUBJECTIVE: Ms. Estrada is currently on BiPAP. She reports her breathing is doing okay on that currently. She is not hurting anywhere. PHYSICAL EXAMINATION: Vital signs: Afebrile. Heart rate is 70. Most recent blood pressure is 98/49. However, most of her systolics over the last several checks have been 110s to 130s. General: She is in no acute distress. Cardiovascular: She is in a regular rate and rhythm. She continues to have a 2/6 systolic murmur at the right upper sternal border. No real lower extremity edema today. Chest: She has bibasilar rales with no increased work of breathing. Abdomen: Soft and nontender. PERTINENT DATA: Her white count is up to 12.3 today with a hematocrit of 29 and platelet count of 221. She continues to have a left shift at 85% neutrophils. Sodium 135, potassium 4.3, BUN 105, creatinine 2.6. ASSESSMENT: Ms. Estrada is a [id number]-female who presented with predominantly right-sided heart failure and has progressed to involve a pneumonia. PLAN: Her cultures are negative. She continues on antibiotics. Her BUN and creatinine have increased slightly. She is off of her diuretics. She is on BIPAP presently. cc: Rl Browning MD [facility]
--- NOTE | 2018-12-04 01:34 | NEPHROLOGY PROGRESS NOTE ---
DATE: 12/03/2018 SUBJECTIVE: The patient is sitting up on the side of the bed. No major issues today. OBJECTIVE: Vital Signs: Temperature 99.1 degrees, pulse 66, respiratory rate 18, blood pressure 131/70. Intake 1 L. Output 475 mL. General: An elderly female, sitting up on the side of the bed, no acute distress. HEENT: Normocephalic and atraumatic. PRIYANKA. Oral mucosa moist. Neck: Supple without JVD. Cardiovascular: Regular rate and rhythm. Pulmonary: Coarse breath sounds. No wheeze or rales. Abdomen: Soft. Positive bowel sounds. Genitourinary: Not inspected. Extremities: No clubbing or cyanosis, 2+ edema. Integumentary: Skin is warm and dry. LABORATORY DATA: WBC of 12.3, hemoglobin 9.3, sodium 135, potassium 4.3, CO2 is 34, BUN 105, creatinine 2.6. IMAGING: Chest CT with increased pulmonary edema plus or minus pneumonia. ASSESSMENT AND PLAN: Acute kidney injury secondary to vbehg-bz-vzwdoud diastolic heart failure and pulmonary hypertension with fluid volume issues. She continues on Lasix 80 mg twice a day and metolazone. We will continue to monitor closely. I did discuss with her the possibility that dialysis may be warranted to manage her fluid volumes, but that we would exhaust all other measures first and it would likely be the first of week before we got to that point. Dictated by CLAUDIA Coelho for Donato Jaramillo MD cc: Donato Jaramillo MD [facility]
--- NOTE | 2018-12-04 03:15 | PULMONOLOGY PROGRESS NOTE ---
DATE: 12/03/2018 SUBJECTIVE: The patient is currently on BiPAP. BiPAP adjustments were made. She is arousable and attempts to converse with the BiPAP in place. She appears to be comfortable. OBJECTIVE: Vital Signs: The patient is afebrile for the last 24 hours. Blood pressure 140/49, heart rate 79, respiratory rate 16, oxygen saturation 94% on BiPAP. HEENT: Pupils are equal and reactive. Oropharynx appears clear but dry. Neck: Supple. Chest: Reveals diminished breath sounds right greater than left base with rhonchi present. Cardiac: S1 and S2 with regular rhythm. Abdomen: Scaphoid and soft. Extremities: Reveal no significant edema. LABORATORY DATA: CT scan of the thorax yesterday is reviewed. The patient has chronic elevation of the right hemidiaphragm, pulmonary vascular distention, small effusions, ascites, increasing mediastinal adenopathy, cardiomegaly, extensive coronary calcifications. Arterial blood gas reveals a pH of 7.39, pCO2 of 64, PO2 of 66 on nasal cannula. White blood count 12.34, hemoglobin 9.3, platelet count 221,000. Sodium 135, potassium 4.3, chloride 87, bicarbonate 34, BUN 105, creatinine 2.6. ProBNP is elevated at 32,875. IMPRESSION: The patient is a 78-year-old with chronic elevation of the right hemidiaphragm, pulmonary hypertension, diastolic dysfunction, mild mitral regurgitation, small effusions, chronic hypercapnic respiratory failure, chronic myelogenous leukemia in remission, ugpar-fs-eeljmue renal insufficiency, chronic hypercapnic respiratory failure, acute hypoxemic respiratory failure. Computed tomography scan is difficult to interpret and it is not clear what is chronic and what is acute. Although she has small effusions she does not appear to be grossly fluid overload. She will likely need some preload with her pulmonary hypertension. Overall prognosis appears to be guarded given her multiple comorbidities with heart, lung, kidney disease and underlying chronic myelogenous leukemia which is in remission. RECOMMENDATIONS: 1. Agree with holding additional diuretics at this juncture. 2. Continue BiPAP today and at bedtime. Continue oxygen for hypoxemic respiratory failure. 3. Check immunoglobulin level. 4. Agree with antibiotics, but I am not convinced she has an underlying pneumonia. cc: Dell Gerber MD
[2018-12-04] MEDS: XOPENEX NEB INH SCH ×4 (03:42→22:00)
[2018-12-04] MEDS: MYCELEX TROCHE PO SCH ×3 (05:33→21:12)
[2018-12-04] MEDS: PROTONIX PO SCH ×2 (05:33→06:33)
[2018-12-04 05:46] LABS: ALLEN TEST YES; BE 10.3 mmoll (-3.0-3.0); BLOOD TYPE ARTERIAL; HCO3-(ACT) 32.9 mmoll (20.0-26.0); METHB 1.4 % (0.0-1.5); O2(CT) 13.8 mL/dL (15.0-23.0); PO2(98.6) 71 mmHg (60-100); SAMPLE BLOOD; SAO2 95.4 % (95.0-100.0); THB 10.6 g/dL (11.5-17.4); pH(98.6) 7.33 (7.35-7.45)
[2018-12-04 05:50] LABS: PCO2(98.6) 73 mmHg (35-45)
[2018-12-04 05:51] LABS: MODALITY BI PAP
[2018-12-04 06:03] LABS: BASO# 0.01 X1000 (0.0-0.2); BASO% 0.1 % (0.0-0.8); EOS# 0.05 X1000 (0.0-0.7); EOS% 0.3 % (0.0-10.0); HEMATOCRIT 30.7 % (37.0-47.0); HEMOGLOBIN 9.6 g/dL (12.0-16.0); IMM GRAN# 0.04 X1000 (0.0-0.04); IMM GRAN% 0.2 % (0.0-0.5); LYMPH# 0.36 X1000 (1.2-3.4); MCH 27.6 PG (27-31); MCHC 31.3 g/dL (33-37); MCV 88.2 FL (81-99); MONO# 1.17 X1000 (0.11-0.59); MONO% 6.5 % (1.7-9.3); MPV 13.4 FL (7.4-10.4); NEUT# 16.41 X1000 (1.4-6.5); NEUT% 90.9 % (42.2-75.2); PLT 219 X1000 (130-400); RBC 3.48 XMIL (4.2-5.4); RDW 17.9 % (11.5-14.5); WBC 18.04 X1000 (4.8-10.8)
[2018-12-04 06:22] LABS: ALBUMIN 4.2 g/dL (3.5-5.0); CALCIUM 10.3 mg/dL (8.8-10.2); CREATININE 3.3 mg/dL (0.5-0.9)
[2018-12-04] MEDS: SYMBICORT 160/4.5 MICROGM INHALER INH SCH ×2 (07:44→19:39)
[2018-12-04] MEDS: DUONEB (A & A) INH PRN (07:44)
[2018-12-04] MEDS: LOVENOX SUBQ SCH (08:46)
[2018-12-04] MEDS: PATIENT'S OWN MED PO SCH ×2 (08:47→21:12)
[2018-12-04] MEDS: MIRALAX PO SCH (08:57)
[2018-12-04] MEDS: NORVASC PO SCH (08:58)
[2018-12-04] MEDS: APRESOLINE PO SCH ×3 (08:58→21:11)
[2018-12-04] MEDS: VITAMIN B-12 PO SCH (08:58)
[2018-12-04] MEDS: ZYLOPRIM PO SCH ×2 (08:58→21:11)
[2018-12-04] MEDS: MAXIPIME 1 GM in NS 50 ML IV SCH (08:58)
[2018-12-04] MEDS: ISORDIL PO SCH ×3 (08:58→21:11)
[2018-12-04] MEDS: THERA M PLUS PO SCH (08:58)
[2018-12-04] MEDS: EFFEXOR XR PO SCH (09:07)
--- NOTE | 2018-12-04 09:54 | Diag Imaging Result Doc PS360 ---
CHEST-PORTABLE - 12/04/2018 INDICATION: dyspnea COMPARISON: 12/03/2018 FINDINGS: Stable pacemaker. Stable severely low lung volumes. There is slight improvement in the bilateral infiltrates particularly at the right lung base. Stable severe cardiomegaly. IMPRESSION: Slight improvement in the indeterminate infiltrate in the right lung base. Electronically signed by Mark Lowery 12/04/2018 9:51 AM
--- NOTE | 2018-12-04 13:50 | PROGRESS NOTE ---
DATE: 12/04/2018 SUBJECTIVE: This patient is complaining of shortness of breath. At this moment, she is eating and she stops the BiPAP machine. Even though she is getting oxygen by nasal cannula, the oxygen saturation is dropping to the 80s. As soon as she is finished eating, we will put her back on the BiPAP machine. BUN and creatinine trending up. Likely this patient will need dialysis. WBC also increased from 8 to 18, even though she has been on antibiotics. Her urine output is really low. OBJECTIVE: Vital Signs: Temperature 97.4 degrees, pulse 79, respiratory rate 18, blood pressure 119/74, oxygen saturation 91 on 5 L of nasal cannula. HEENT: Head normocephalic. No trauma. PERRLA. Neck: Supple. She does have some JVD. Central trachea. Chest: Decreased breath sounds globally, probably coarse breath sounds with crackles bilaterally mostly from the mid thoracic area down. No wheezing. Some crepitus. Abdomen: Soft, nontender, nondistended. No hepatosplenomegaly. Extremities: There is 2+ to 3+ lower extremity edema. The left lower extremity is more swollen compared with the right lower extremity. Neurological examination: At this moment, she is still alert and oriented x3. No focal deficits. LABORATORY: WBC 18, hemoglobin 9.6, hematocrit 30.7, platelets 219. Sodium 133, potassium 5, chloride 85, bicarbonate 32. BUN 116, creatinine 3.3,, glucose 141, phosphorus 7, albumin 4.2. ASSESSMENT AND PLAN: 1. Acute on chronic diastolic heart failure, pulmonary hypertension. For now, we will continue with the same management. She is not getting diuretics at this moment. Probably she will be on dialysis. Urine output slow. She is still complaining of shortness of breath. 2. Acute on chronic hypoxemic and hypercarbic respiratory failure. We have placed this patient on the BiPAP machine. I do believe we need to continue with the same management. Pulmonary Department on board. 3. Community-acquired pneumonia. She already received 1 round of antibiotics that were stopped on 11/18/2018. Now we have restarted antibiotics a couple days ago for possible pneumonia. 4. Left upper extremity swelling associated with peripherally inserted central catheter line, better. There is no evidence of deep vein thrombosis or superficial venous thrombosis involving the left upper extremity. 5. History of coronary artery disease, atrial fibrillation, sick sinus syndrome, status post pacemaker placement. 6. History of hypertension. Will continue with same management. 7. Anemia of chronic disease. Stable. 8. Hypertension, stable. 9. Acute on chronic kidney disease. BUN and creatinine are getting worse. Probably this patient will need dialysis. Urine output decreased. Nephrology on board. 10. History of obstructive sleep apnea. We will continue with the CPAP machine. 11. History of chronic myeloid leukemia, in remission. Aware. 12. Leukocytosis. I am not quite sure about the current increase of the leukocyte count. We have placed this patient on antibiotics due to a possibility of pneumonia. I do not see any other source of infection. Probably this is reactive, but we will monitor. cc: Jaime Tavarez MD
[2018-12-04] MEDS: LEVAQUIN 250 MG/D5W 250 MG/50 ML IVPB IV SCH (15:23)
[2018-12-04] MEDS: ZOFRAN IV PRN (17:17)
[2018-12-05] MEDS: XOPENEX NEB INH SCH ×5 (03:45→21:00)
--- NOTE | 2018-12-05 04:04 | PULMONOLOGY PROGRESS NOTE ---
DATE: 12/04/2018 SUBJECTIVE: The patient reports she feels a little better this morning after sleeping on BiPAP yesterday evening. The patient has been afebrile for the last 24 hours. OBJECTIVE: Vital Signs: Blood pressure 107/44, heart rate 73, respiratory rate 18, oxygen saturation 95%. HEENT: Pupils are equal and reactive. Oropharynx is clear. Neck is supple. Chest: Reveals shallow breath sounds bilaterally with bilateral crackles. Cardiac Examination: S1-S2. Abdomen: Soft. Extremities: Without edema. Laboratories: Chest x-ray reveals shallow lung volumes, cardiomegaly, no significant change. Chemistries: Sodium 133, potassium 5.5, chloride 85, bicarbonate 32, BUN 116, creatinine 3.3, glucose 141. ProBNP 32,875. Arterial blood gas, pH 7.33, pCO2 of 73, PO2 of 71. White blood count 18.0, hemoglobin 9.6, platelet count 219,000. IMPRESSION: A 78-year-old with chronic elevation of the right hemidiaphragm, pulmonary hypertension, diastolic dysfunction, mitral valve regurgitation, chronic hypercapnic respiratory failure, chronic myelogenous leukemia in remission, acute on chronic renal insufficiency, acute hypercapnic respiratory failure, acute hypoxemic respiratory failure, with overall poor performance status. The patient has been in the hospital for 22 days and does not appear to have had significant clinical improvement. RECOMMENDATIONS: 1. Continue to hold diuretics. With comorbidities, it is not clear to this practitioner that dialysis will significantly extend her lifespan. 2. Continue BiPAP at bedtime and p.r.n. 3. Continue oxygen for hypoxemic respiratory failure. 4. Awaiting immunoglobulin levels. 5. Overall prognosis is guarded to poor. End of life discussion should be considered. cc: Dell Gerber MD
--- NOTE | 2018-12-05 04:43 | NEPHROLOGY PROGRESS NOTE ---
DATE: 12/04/2018 SUBJECTIVE: The patient currently resting in bed. She has a BiPAP on. She is not as interactive today. OBJECTIVE: Vital Signs: Temperature 97.4 degrees, pulse 79, respiratory rate 18, blood pressure 119/74. Intake 725 mL. Output 25 mL. General: Chronically ill-appearing, elderly female, resting in bed. She is on a BiPAP. HEENT: Normocephalic, atraumatic. Oral mucosa appears dry. Neck: Supple, with JVD in a reclined position. Cardiovascular: Reveals a regular rate and rhythm. No murmur or gallop. Pulmonary: She has decreased breath sounds bilaterally, right greater than left. She has some rhonchi. She is on a BiPAP. Abdomen: Soft. Positive bowel sounds. : Not inspected. Extremities: She has 2+ lower extremity edema, left slightly greater than right. Integumentary: Skin is thin, warm and dry. LAB DATA: WBC of 18.0, hemoglobin 9.6. Sodium 133, potassium 5.0, CO2 32, creatinine 3.3, BUN 116. ASSESSMENT AND PLAN: Acute kidney injury secondary to [id number] diastolic heart failure, pulmonary hypertension, fluid volume issues. She has been seen by Pulmonology, with an indication that she does not appear to be grossly fluid overloaded, although she has some small effusion. We are holding diuretics at this juncture secondary to her renal function. She will continue on the BiPAP as much as possible. We will check labs in the morning. Further orders as warranted. The patient may require dialysis at some juncture. Dictated by CLAUDIA Coelho for Donato Jaramillo MD cc: Donato Jaramillo MD
[2018-12-05 05:19] LABS: ALLEN TEST YES; BLOOD TYPE ARTERIAL; HCO3-(ACT) 31.1 mmoll (20.0-26.0); METHB 1.6 % (0.0-1.5); O2(CT) 13.4 mL/dL (15.0-23.0); O2HB 92.7 % (95.0-99.0); PO2(98.6) 73 mmHg (60-100); SAMPLE BLOOD; SAO2 95.9 % (95.0-100.0); THB 10.2 g/dL (11.5-17.4); pH(98.6) 7.35 (7.35-7.45)
[2018-12-05 05:21] LABS: MODALITY BI PAP; PCO2(98.6) 64 mmHg (35-45)
[2018-12-05] MEDS: MYCELEX TROCHE PO SCH ×3 (05:32→20:59)
[2018-12-05] MEDS: PROTONIX PO SCH ×2 (05:32→06:01)
[2018-12-05 05:45] LABS: BASO# 0.01 X1000 (0.0-0.2); BASO% 0.1 % (0.0-0.8); EOS# 0.05 X1000 (0.0-0.7); EOS% 0.4 % (0.0-10.0); HEMATOCRIT 28.4 % (37.0-47.0); IMM GRAN# 0.05 X1000 (0.0-0.04); IMM GRAN% 0.4 % (0.0-0.5); LYMPH# 0.43 X1000 (1.2-3.4); LYMPH% 3.7 % (20.5-51.1); MCH 27.6 PG (27-31); MCHC 31.7 g/dL (33-37); MCV 87.1 FL (81-99); MONO# 0.58 X1000 (0.11-0.59); MPV 12.7 FL (7.4-10.4); NEUT# 10.39 X1000 (1.4-6.5); NEUT% 90.4 % (42.2-75.2); PLT 200 X1000 (130-400); RBC 3.26 XMIL (4.2-5.4); RDW 17.8 % (11.5-14.5); WBC 11.51 X1000 (4.8-10.8)
[2018-12-05 07:19] LABS: ALBUMIN 3.8 g/dL (3.5-5.0); CALCIUM 9.2 mg/dL (8.8-10.2); CREATININE 4.8 mg/dL (0.5-0.9); PHOSPHORUS 6.9 mg/dL (2.7-4.5)
[2018-12-05 07:26] LABS: POTASSIUM 5.9 mmol/L (3.5-5.1)
[2018-12-05] MEDS ORDERED: HUMULIN R IV ONE (07:35)
[2018-12-05] MEDS ORDERED: D50W SYRINGE IV ONE (07:35)
[2018-12-05] MEDS ORDERED: KAYEXALATE PO ONE (07:36)
[2018-12-05] MEDS ORDERED: CALCIUM GLUCONATE 4.65 MEQ in NS 50 ML IV ONE (07:36)
[2018-12-05] MEDS ORDERED: ALBUTEROL 0.5% INH CONC FOR HYPERKALEMIA INH ONE (07:36)
--- NOTE | 2018-12-05 07:51 | Diag Imaging Result Doc PS360 ---
CHEST-PORTABLE - 12/05/2018 INDICATION: dyspnea COMPARISON: 12/04/2018 FINDINGS: Stable pacemaker. Stable cardiomegaly. Stable hazy background interstitial opacity compatible with pulmonary edema. Stable significant opacification of the right lung base. Stable hazy atelectasis or infiltrate at the right lung base. IMPRESSION: No change from prior. Electronically signed by Mark Lowery 12/05/2018 7:49 AM
[2018-12-05] MEDS: SYMBICORT 160/4.5 MICROGM INHALER INH SCH ×2 (07:59→21:00)
[2018-12-05] MEDS: VITAMIN B-12 PO SCH ×2 (08:24→08:54)
[2018-12-05] MEDS: THERA M PLUS PO SCH ×2 (08:24→08:54)
[2018-12-05] MEDS: EFFEXOR XR PO SCH ×2 (08:24→08:54)
[2018-12-05] MEDS: MIRALAX PO SCH (08:25)
[2018-12-05] MEDS: NORVASC PO SCH (08:25)
[2018-12-05] MEDS: ZYLOPRIM PO SCH ×3 (08:25→20:59)
[2018-12-05] MEDS: PATIENT'S OWN MED PO SCH ×2 (08:25→20:59)
[2018-12-05] MEDS: ISORDIL PO SCH ×3 (08:26→20:59)
[2018-12-05] MEDS: MAXIPIME 1 GM in NS 50 ML IV SCH (08:26)
[2018-12-05] MEDS: APRESOLINE PO SCH ×3 (08:26→20:58)
[2018-12-05] MEDS: LOVENOX SUBQ SCH (08:26)
[2018-12-05] MEDS: ZOFRAN IV PRN ×4 (08:53→22:25)
--- NOTE | 2018-12-05 11:05 | PROGRESS NOTE ---
DATE: 12/05/2018 SUBJECTIVE: This patient is feeling worse today. She is still complaining of shortness of breath. She is using the BiPAP machine. The pCO2 is still elevated at 64. Kidney function is getting worse. BUN 128 and creatinine 4.8, with hyperkalemia at 5.9. BNP more than 35,000. I do believe this patient may need dialysis. OBJECTIVE: Vital Signs: Temperature 97 degrees, pulse 80, respiratory rate 19, blood pressure 104/52, oxygen saturation 99 on the BiPAP machine. HEENT: Head normocephalic. No trauma. PERRLA. Neck: Supple. She does have some JVD. Central trachea. Chest: Decreased breath sounds globally with coarse breath sounds and crackles bilaterally, mostly from the thoracic area to the lower thoracic area. No wheezing. Some crepitus. Abdomen: Soft, nontender. Mildly distended. No hepatosplenomegaly. Extremities: There is 2 to 3+ lower extremity edema. No clubbing. No cyanosis. Neurological Examination: The patient is alert and oriented x3. No focal deficits. Laboratory: WBC 11.5, hemoglobin 9, hematocrit 28.4, platelets 200,000. PCO2 64. Sodium 130, potassium 5.9, chloride 83, bicarbonate 31, BUN 128, creatinine 4.8, glucose 154, calcium 9.2, phosphorus 6.9. ASSESSMENT AND PLAN: 1. Acute on chronic diastolic heart failure, pulmonary hypertension. For now, we will continue with the same management. Her urine output is really low. Probably, she will need dialysis. She is still complaining of shortness of breath. 2. Acute on chronic hypoxemic and hypercarbic respiratory failure. Continue with the BiPAP machine. Continue with the same management. Pulmonary department on board. 3. Community-acquired pneumonia. She already received one round of antibiotics that were stopped on 11/18/2018. Now, we have restarted antibiotics a couple days ago because of her increase of WBC but it is hard to say if she has a new pneumonia at this moment. WBC is trending down though. 4. Left upper extremity swelling associated with peripheral inserted central catheter line. This is better and no evidence of deep venous thrombosis or superficial venous thrombosis involving the left upper extremity. 5. Acute on chronic kidney disease. BUN and creatinine are getting worse. Urine output is really low. Probably, she will need dialysis. Nephrology on board. 6. History of coronary artery disease, atrial fibrillation, and sick sinus syndrome, status post pacemaker placement. 7. History of hypertension. Continue with the same management. 8. Anemia of chronic disease, stable. 9. History of obstructive sleep apnea. Continue with the CPAP machine. 10. History of chronic myeloid leukemia, in remission, aware. 11. Leukocytosis. Like I mentioned before, probably this patient has pneumonia. I am not quite sure about it but after placing this patient on antibiotics, the WBC is getting better. 12. Hyperkalemia, likely secondary to her worsening kidney dysfunction. She will receive treatment with Kayexalate, insulin, breathing treatments, and calcium gluconate. CRITICAL CARE TIME: 40 minutes. cc: Jaime Tavarez MD
[2018-12-05 17:18] LABS: POTASSIUM 5.5 mmol/L (3.5-5.1)
[2018-12-05 17:19] LABS: CALCIUM 9.5 mg/dL (8.8-10.2)
[2018-12-05 17:24] LABS: CREATININE 5.1 mg/dL (0.5-0.9)
--- NOTE | 2018-12-05 17:46 | PULMONOLOGY PROGRESS NOTE ---
DATE: 12/05/2018 SUBJECTIVE: The patient is having some nausea. She remains on BiPAP for dyspnea. OBJECTIVE: Vital Signs: Blood pressure 116/46, heart rate 92, respiratory rate 20, oxygen saturation 100%. HEENT: Pupils are equal. Oropharynx appears clear, but dry. Neck: Supple. Chest: Reveals shallow breath sounds with bibasilar crackles. Cardiac: S1, S2 with a 2-3/6 systolic ejection murmur. Abdomen: Soft. Extremities: Without edema. LABORATORIES: Chest x-ray reveals cardiomegaly with vascular prominence. Sodium 130, potassium 5.9, chloride 83, bicarbonate 31, BUN 128, creatinine 4.8, glucose 154. ProBNP greater than 35,000. IMPRESSION: A 78-year-old with chronic elevation of the right hemidiaphragm, pulmonary hypertension, chronic myelogenous leukemia in remission, diastolic heart failure, mitral valve regurgitation, chronic hypercapnic respiratory failure, acute hypoxemic respiratory failure, acute on chronic renal failure. The patient continues to have slow decline. Her diuretics have been on hold. RECOMMENDATIONS: 1. Continue to hold diuretics. 2. Cycle BiPAP as tolerated. 3. Continue oxygen for hypoxemic respiratory failure. 4. Patient's renal function continues to progress. It is not clear she will improve with hemodialysis. Her prognosis is poor. End of life discussions recommended. cc: Dell Gerber MD
[2018-12-05] MEDS: TYLENOL PO PRN (23:33)
[2018-12-06] MEDS: XOPENEX NEB INH SCH ×4 (03:25→22:00)
[2018-12-06 05:05] LABS: ALLEN TEST YES; BE 5.2 mmoll (-3.0-3.0); BLOOD TYPE ARTERIAL; HCO3-(ACT) 28.8 mmoll (20.0-26.0); O2(CT) 17.1 mL/dL (15.0-23.0); PO2(98.6) 61 mmHg (60-100); SAMPLE BLOOD; SAO2 92.7 % (95.0-100.0); THB 13.5 g/dL (11.5-17.4); pH(98.6) 7.31 (7.35-7.45)
[2018-12-06 05:07] LABS: MODALITY BI PAP; O2HB 89.9 % (95.0-99.0); PCO2(98.6) 67 mmHg (35-45)
[2018-12-06] MEDS: TYLENOL PO PRN (05:46)
[2018-12-06] MEDS: ZOFRAN IV PRN ×2 (05:47→10:27)
[2018-12-06] MEDS: MYCELEX TROCHE PO SCH ×3 (05:51→20:46)
[2018-12-06] MEDS: PROTONIX PO SCH (06:06)
[2018-12-06 06:13] LABS: EOS# 0.02 X1000 (0.0-0.7); EOS% 0.2 % (0.0-10.0); HEMATOCRIT 29.4 % (37.0-47.0); HEMOGLOBIN 9.6 g/dL (12.0-16.0); IMM GRAN# 0.02 X1000 (0.0-0.04); IMM GRAN% 0.2 % (0.0-0.5); LYMPH% 3.1 % (20.5-51.1); MCH 28.2 PG (27-31); MCHC 32.7 g/dL (33-37); MCV 86.2 FL (81-99); MONO# 0.68 X1000 (0.11-0.59); MONO% 5.3 % (1.7-9.3); MPV 13.3 FL (7.4-10.4); NEUT# 11.69 X1000 (1.4-6.5); NEUT% 91.2 % (42.2-75.2); PLT 230 X1000 (130-400); RBC 3.41 XMIL (4.2-5.4); RDW 17.6 % (11.5-14.5); WBC 12.81 X1000 (4.8-10.8)
[2018-12-06 06:49] LABS: ALBUMIN 4.2 g/dL (3.5-5.0); CALCIUM 9.8 mg/dL (8.8-10.2); CREATININE 5.6 mg/dL (0.5-0.9); MAGNESIUM 2.9 mg/dL (1.5-2.7); PHOSPHORUS 7.9 mg/dL (2.7-4.5)
[2018-12-06 06:50] LABS: POTASSIUM 6.4 mmol/L (3.5-5.1)
[2018-12-06] MEDS ORDERED: TIGHT: 0.2 ML/HR FOR DIALYSIS MISC PRN (06:50)
[2018-12-06] MEDS ORDERED: HEPARIN IV PRN (06:50)
[2018-12-06] MEDS ORDERED: NS 2,000 ML MISC PRN (06:50)
[2018-12-06] MEDS ORDERED: CALCIUM GLUCONATE 4.65 MEQ in NS 50 ML IV ONE (07:35)
[2018-12-06] MEDS ORDERED: ALBUTEROL 0.5% INH CONC FOR HYPERKALEMIA INH ONE (07:36)
[2018-12-06] MEDS ORDERED: HUMULIN R IV ONE (07:36)
[2018-12-06] MEDS ORDERED: KAYEXALATE PO ONE (07:36)
[2018-12-06] MEDS ORDERED: D50W SYRINGE IV ONE (07:37)
[2018-12-06 07:55] LABS: LYMPHS 3 % (21-51); MONO 4 % (1-9); SEGS 93 % (42-75)
[2018-12-06] MEDS: SYMBICORT 160/4.5 MICROGM INHALER INH SCH ×2 (08:20→23:13)
--- NOTE | 2018-12-06 08:43 | PROGRESS NOTE ---
DATE: 12/06/2018 SUBJECTIVE: This patient is feeling worse today. She is still complaining of shortness of breath. She is still using the BiPAP machine. The CO2 is still elevated. Kidney function is getting worse. She is hyperkalemic, which will be treated. OBJECTIVE: Vital Signs: Temperature 98.6, pulse 80, respiratory rate 24, blood pressure 110/44, oxygen saturation 99 on the BiPAP machine. HEENT: Head normocephalic. No trauma. PERRLA. Neck: Supple. She does have some JVD. Central trachea. Chest: Decreased breath sounds globally with coarse breath sounds and crackles bilaterally, mostly lower lungs. No wheezing, some crepitus. Abdomen: Soft, nontender. Mildly distended. No hepatosplenomegaly. Extremities: 1 to 2+ lower extremity edema. No clubbing. No cyanosis. Neurological: The patient is alert and oriented x3. No focal deficits. LABORATORY: WBC 12.8, hemoglobin 9.6, hematocrit 29.4, platelets 230. Sodium 129, potassium 6.4, chloride 81, bicarbonate 29. BUN 135, calcium 5.6, glucose 140, calcium 9.8. Magnesium 2.9, phosphorus 7.9, albumin 4.2. ASSESSMENT AND PLAN: 1. Acute on chronic diastolic heart failure, pulmonary hypertension. For now we will continue with the same management. Urine output is low. She will have dialysis today. 2. Acute on chronic hypoxemic and hypercarbic respiratory failure. Continue with the BiPAP machine. Continue with the same management. Pulmonary Department on board. 3. Acute on chronic kidney disease. She will be scheduled for dialysis today. No recovery so far. 4. Hyperkalemia, potassium will be treated. We will put right now calcium gluconate. 5. Community-acquired pneumonia. She already received a round of antibiotics but they were stopped on 11/18/2018. Now, we have restarted treatment a few days ago because of her increased WBC, but it is really hard to say if she has a new pneumonia at this moment. WBC is trending down though. 6. Left upper extremity swelling associated with PICC line, better. No evidence of deep vein thrombosis or superficial venous thrombosis involving the left upper extremity. 7. History of coronary artery disease, atrial fibrillation and sick sinus syndrome, status post pacemaker placement. 8. History of hypertension, continue with same management. 9. Anemia of chronic disease. Stable. 10. History of obstructive sleep apnea. Continue with the CPAP machine. 11. History of chronic myeloid leukemia, in remission, aware. 12. Leukocytosis. Like I mentioned before, probably this patient has pneumonia, but I am not quite sure about it. She has been placed on antibiotics and the WBC is getting better. CRITICAL CARE TIME: 35 minutes. cc: Jaime Tavarez MD
--- NOTE | 2018-12-06 08:45 | Diag Imaging Result Doc PS360 ---
EXAM: CHEST-PORTABLE HISTORY: dyspnea TECHNIQUE: Chest single view COMPARISON: 12/05/2018 FINDINGS: Poor inspiratory effort. There is a left-sided pacemaker. There are bilateral infiltrates and basilar atelectasis fairly similar to the prior exam. IMPRESSION: No interval improvement. Electronically signed by Jeremy Menendez 12/06/2018 8:43 AM
[2018-12-06 09:42] LABS: PCO2(98.6) 64 mmHg (35-45)
--- NOTE | 2018-12-06 10:01 | NEPHROLOGY PROGRESS NOTE ---
DATE: 12/06/2018 SUBJECTIVE: Patient is sitting up in bed. She remains on BiPAP. OBJECTIVE: Vital Signs: Temperature 98 degrees, pulse 80, respiratory rate 24 , blood pressure 110/44. Intake 200 mL, output 150 mL. General: This is an elderly female, sitting up in bed. Awake and alert. She is reactive but minimally so. HEENT: Normocephalic, atraumatic. Oral mucosa appears dry through the BiPAP mask. Neck: Supple, with positive JVD. Cardiovascular: Regular rate and rhythm with a systolic murmur. Pulmonary: Decreased breath sounds. She does have some crackles bilaterally. She is on BiPAP. Abdomen: Mildly distended with positive bowel sounds. : Carrasco catheter, a small amount of dark urine. Extremities: There is 2+ edema, left greater than right. She does have some dependent edema of the left upper extremity as well. Integumentary: Skin is pale, warm, and dry. Lab Data: WBC of 12.8, hemoglobin 9.6. Sodium 129, potassium 6.4, CO2 29, BUN 135, creatinine 5.6. ASSESSMENT AND PLAN: 1. Acute kidney injury in the setting of diastolic heart failure and pulmonary hypertension. Her renal function has continued to worsen over the weekend. Her urine output has continued to decline. We had a discussion with the family and the patient regarding her wishes. We will have surgery place a dialysis access today and we will initiate treatment. She will dialyze on a 2 K bath secondary to her hyperkalemia, 2 L ultrafiltration removal as tolerated on a slow flow secondary to her elevated BUN for a 2 hour treatment. We will plan on dialyzing her over the next 2 days as well. 2. Electrolytes, acid-base balance. See above. 3. Fluid volume. See above. 4. Acute on chronic hypoxemic, hypercapnic respiratory failure. Continues on BiPAP. Followed by pulmonology. Dictated by CLAUDIA Coelho for Donato Jaramillo MD Face to face encounter, data reviewed, discussed with Mariza Espinal on 12/06/18. I agree with the above assessment and plan of care. cc: Donato Jaramillo MD [facility]
[2018-12-06] MEDS: MAXIPIME 1 GM in NS 50 ML IV SCH (10:27)
[2018-12-06] MEDS: EFFEXOR XR PO SCH (11:17)
[2018-12-06] MEDS: APRESOLINE PO SCH ×3 (11:17→20:45)
[2018-12-06] MEDS: ISORDIL PO SCH ×3 (11:18→20:45)
[2018-12-06] MEDS: MIRALAX PO SCH (11:18)
[2018-12-06] MEDS: LOVENOX SUBQ SCH (11:18)
[2018-12-06] MEDS: NORVASC PO SCH (11:19)
[2018-12-06] MEDS: VITAMIN B-12 PO SCH (11:20)
[2018-12-06] MEDS: ZYLOPRIM PO SCH ×2 (11:20→20:46)
[2018-12-06] MEDS: PATIENT'S OWN MED PO SCH ×2 (11:20→20:46)
[2018-12-06] MEDS: THERA M PLUS PO SCH (11:20)
[2018-12-06] MEDS ORDERED: TUMS PO ONE (13:26)
[2018-12-06] MEDS ORDERED: SODIUM CHLORIDE 0.9% INJ SCH (13:30)
[2018-12-06] MEDS: PROTONIX IV SCH (13:41)
[2018-12-06] MEDS ORDERED: NS 1,000 ML IV SCH (14:00)
--- NOTE | 2018-12-06 14:34 | CARDIOLOGY PROGRESS NOTE ---
DATE: 12/06/2018 SUBJECTIVE: Ms. Estrada continues on BiPAP. Son is present in the room and thinks she has deteriorated somewhat over the last 2 days or so. She has had very little oral intake. PHYSICAL: She is afebrile. Heart rate 82, her blood pressure is 124/38. Her I's and O's seem to show she has had a total of around 1400 mL intake over the last 2-1/2 to 3 days.General: She is in no acute distress. BiPAP is in place. Cardiovascular: She sounds to be in a regular rate and rhythm. There is a 2 to 3/6 systolic murmur best heard at the right upper sternal border. She has warm and well perfused lower extremities with no edema. Her chest exam has bilateral basilar rales. No increased work of breathing. Abdomen: Soft, nontender. PERTINENT DATA: Her white count is 12.8, her hematocrit is 29, platelet count is 230,000. She still has a left shift. Her pH is 7.31, pCO2 67, PO2 is 61. Her AA gradient is 212 which is roughly stable over the last 3 days. Her sodium is 129, potassium 6.4, her BUN is 135, creatinine is 5.6. ASSESSMENT: Ms. Estrada is a 78-year-old female who presented with heart failure. She since has developed a pneumonia and renal insufficiency. PLAN: She is undergoing dialysis today. Her potassium has steadily increased over the last 3 days. She has had very little oral intake as well as her urine output has reduced. I will put her on a low dose of repletion fluids at 75 mL of normal saline per hour times a liter. Be cautious not to overload her but considering her very poor oral intake and the fact that she has a dialysis access now in place, I believe this would be reasonable. She is having a significant amount of diffuse body pain. I will add in some tramadol available twice daily as needed. cc: Rl Browning MD
[2018-12-06] MEDS: LEVAQUIN 250 MG/D5W 250 MG/50 ML IVPB IV SCH (17:05)
--- NOTE | 2018-12-07 01:06 | OPERATIVE NOTE ---
PROCEDURE DATE: 12/06/2018 PREOPERATIVE DIAGNOSIS: 1. Acute on chronic renal dysfunction. 2. Volume overload. 3. Hyperkalemia. POSTOP: 1. Acute on chronic renal dysfunction. 2. Volume overload. 3. Hyperkalemia. PROCEDURE PERFORMED: Placement of right femoral vein Trialysis catheter. ESTIMATED BLOOD LOSS: Less than 5 mL. ANESTHESIA: Local. INDICATIONS: 78-year-old female who has worsening of her chronic renal dysfunction. She is now volume overload, hyperkalemia, refractory to medical management. She is oliguric. She is in need of vascular access. FINDINGS: The diffuse anasarca, normal vascular anatomy in the right groin. OPERATIVE NOTE: Risks, benefits, alternatives were discussed with patient and her son and both consented procedure. She was seen preoperatively and surgical site was confirmed. She was taken to our PACU where she was placed in supine position. She required elevation of the head of the bed given her respiratory status. We did have her on bedside monitoring. Her right groin was prepped chlorhexidine solution draped usual fashion. After time-out, local anesthetic was infiltrated medial to the femoral artery pulse and the vein was accessed on the first pass. Dark nonpulsatile venous blood was noted on return. The wire threaded easily and a skin pavel was made and the tract was serially dilated. A pre-flushed triple-lumen Trialysis catheter was advanced and was secured nylon sutures. All ports withdrew blood and flushed without resistance. Sterile caps were applied. It was secured with nylon suture and a dressing was applied. She tolerated it well. No complication. cc: Jenny Patino MD
[2018-12-07] MEDS: PROTONIX IV SCH ×2 (01:07→13:37)
[2018-12-07] MEDS: XOPENEX NEB INH SCH ×4 (03:31→23:00)
[2018-12-07 03:49] LABS: ALLEN TEST YES; BE 4.5 mmoll (-3.0-3.0); BLOOD TYPE ARTERIAL; HCO3-(ACT) 28.4 mmoll (20.0-26.0); METHB 1.1 % (0.0-1.5); O2(CT) 12.7 mL/dL (15.0-23.0); O2HB 96.5 % (95.0-99.0); PO2(98.6) 150 mmHg (60-100); SAMPLE BLOOD; SAO2 99.2 % (95.0-100.0); SRATE 4 BPM; THB 9.1 g/dL (11.5-17.4)
[2018-12-07 03:51] LABS: MODALITY BI PAP
[2018-12-07 03:52] LABS: PCO2(98.6) 65 mmHg (35-45)
[2018-12-07] MEDS: MYCELEX TROCHE PO SCH ×3 (05:16→23:19)
[2018-12-07 05:50] LABS: EOS# 0.03 X1000 (0.0-0.7); EOS% 0.3 % (0.0-10.0); HEMATOCRIT 26.9 % (37.0-47.0); HEMOGLOBIN 8.4 g/dL (12.0-16.0); IMM GRAN# 0.04 X1000 (0.0-0.04); IMM GRAN% 0.4 % (0.0-0.5); LYMPH# 0.39 X1000 (1.2-3.4); LYMPH% 3.5 % (20.5-51.1); MCH 27.5 PG (27-31); MCHC 31.2 g/dL (33-37); MCV 87.9 FL (81-99); MONO# 0.63 X1000 (0.11-0.59); MONO% 5.7 % (1.7-9.3); MPV 13.1 FL (7.4-10.4); NEUT# 10.06 X1000 (1.4-6.5); NEUT% 90.1 % (42.2-75.2); PLT 170 X1000 (130-400); RBC 3.06 XMIL (4.2-5.4); RDW 17.9 % (11.5-14.5); WBC 11.15 X1000 (4.8-10.8)
[2018-12-07 06:07] LABS: ALBUMIN 3.5 g/dL (3.5-5.0); CREATININE 4.4 mg/dL (0.5-0.9); MAGNESIUM 2.3 mg/dL (1.5-2.7); PHOSPHORUS 6.7 mg/dL (2.7-4.5); POTASSIUM 4.8 mmol/L (3.5-5.1)
[2018-12-07] MEDS: ZOFRAN IV PRN (07:08)
[2018-12-07] MEDS ORDERED: HEPARIN IV PRN (07:35)
[2018-12-07] MEDS ORDERED: NS 2,000 ML MISC PRN (07:35)
[2018-12-07] MEDS ORDERED: TIGHT: 0.2 ML/HR FOR DIALYSIS MISC PRN (07:35)
--- NOTE | 2018-12-07 07:54 | Diag Imaging Result Doc PS360 ---
CHEST-PORTABLE - 12/07/2018 INDICATION: dyspnea COMPARISON: 12/06/2018 FINDINGS: Stable pacemaker. Stable cardiomegaly and pulmonary vascular congestion. There is no significant change in the bibasilar infiltrates or atelectasis. There are also small to moderate bilateral pleural effusions stable from prior. IMPRESSION: No change from prior. Electronically signed by Mark Lowery 12/07/2018 7:52 AM
--- NOTE | 2018-12-07 08:59 | PROGRESS NOTE ---
DATE: 12/07/2018 SUBJECTIVE: Patient reports breathing better. Currently, she is using a BiPAP mask. She had dialysis yesterday. No issues noted as per nursing staff overnight. OBJECTIVE: Vital Signs: Temperature 97.6 degrees, heart rate 70, respiratory rate 30, pressure 129/47, O2 saturation 100% on BiPAP. General: This is a chronically ill-appearing 78-year-old female lying in bed, a little bit tachypneic using a BiPAP mask. HEENT: Head is normocephalic, atraumatic. Mucous membranes dry. Neck: No JVD noted. No carotid bruits. No lymphadenopathy. No thyromegaly. Cardiovascular: S1, S2 heard, bradycardic. No murmurs, gallops, or rubs. Regular rate and rhythm. Respiratory: Coarse breath sounds and wheezing noted in both pulmonary bases. The patient is not using any accessory muscles or having work of breathing. Abdomen: Soft and nontender to palpation. A little bit distended. No organomegaly noted. Extremity: 2+ pitting edema in both lower extremities. No clubbing or cyanosis noted. Neurological: Patient is alert and oriented x3. Moves 4 extremities. LABORATORY DATA: White cell count 11.15, hemoglobin 8.4, hematocrit 26.9, platelets 170, with ABG that shows pH 7.30, with pCO2 65, with pO2 150, and sodium 132, creatinine 4.4. ASSESSMENT AND PLAN: 1. Acute on chronic diastolic heart failure with pulmonary hypertension. For better management of volume overload, patient has been started on dialysis. She had her first session yesterday. She reports feeling better. Plans from Nephrology is to do dialysis today and tomorrow. We will continue to monitor this patient. 2. Acute on chronic hypoxemic-hypercarbic respiratory failure. Patient is on BiPAP, but unfortunately she is still tachypneic. I think that dialysis will help to improve this condition. We will continue to monitor. Pulmonary is also following this patient. Help appreciated. 3. Acute on chronic kidney disease stage 5. As we mentioned before, Nephrology is planning to do dialysis today and tomorrow to complete three sessions in a row. We will follow recommendations. 4. Hyperkalemia, resolved. 5. Community-acquired pneumonia. The patient, according to notes from yesterday, has received treatment for this condition. But unfortunately, her numbers started getting higher, so she was started on levofloxacin and cefepime. Recently, today is day #4 for both medications. Definitely, white cell count is getting better. We will continue with the same management. 6. Left upper extremity swelling associated with a peripherally inserted central catheter line. That condition is getting better. There was a suspicion for deep venous thrombosis, but the ultrasound did not reveal anything. 7. History of coronary artery disease with atrial fibrillation and sick sinus syndrome, status post pacemaker placement aware. We will continue to monitor. 8. Hypertension. Blood pressure is under control. We will continue with same management. 9. Anemia of chronic disease. Hemoglobin is stable. Will continue to monitor CBC. 10. Obstructive sleep apnea. The patient using is BiPAP right now, and she used CPAP at home. We will continue to monitor. 11. History of chronic myelogenous leukemia in remission, aware. 12. Disposition. At this point, the patient is still somewhat tachypneic. I think she is still volume overloaded. So, I think dialysis will help a lot with this. Patient has been started on intravenous fluids because of her very poor oral intake. We will continue to monitor. 13. Disposition. We will continue to monitor this patient closely. cc: Dillon Maldonado MD
[2018-12-07] MEDS: MAXIPIME 1 GM in NS 50 ML IV SCH (10:21)
[2018-12-07] MEDS: APRESOLINE PO SCH ×3 (10:28→23:19)
[2018-12-07] MEDS: VITAMIN B-12 PO SCH (10:29)
[2018-12-07] MEDS: EFFEXOR XR PO SCH (10:29)
[2018-12-07] MEDS: ZYLOPRIM PO SCH ×2 (10:29→23:19)
[2018-12-07] MEDS: NORVASC PO SCH (10:30)
[2018-12-07] MEDS: MIRALAX PO SCH (10:30)
[2018-12-07] MEDS: ISORDIL PO SCH ×3 (10:30→23:19)
[2018-12-07] MEDS: LOVENOX SUBQ SCH (10:30)
[2018-12-07] MEDS: THERA M PLUS PO SCH (10:31)
[2018-12-07] MEDS: PATIENT'S OWN MED PO SCH ×2 (10:31→23:20)
[2018-12-07] MEDS: SYMBICORT 160/4.5 MICROGM INHALER INH SCH ×2 (10:57→23:57)
[2018-12-07] MEDS: ULTRAM PO PRN (12:30)
--- NOTE | 2018-12-07 13:05 | CARDIOLOGY PROGRESS NOTE ---
DATE: 12/07/2018 SUBJECTIVE: Ms. Estrada reports she is doing reasonably well today. She is tolerating the BiPAP better. She underwent a session of dialysis yesterday and is apparently due for another today. PHYSICAL: Vital Signs: Afebrile. Heart rate of 55. Blood pressure 126/49. General: She is in no acute distress. Cardiovascular: She has a regular rate and rhythm. She has no obvious S3. She has a 2/6 systolic murmur at the right upper sternal border. Extremities: Warm and well perfused extremities. Chest: Has coarse breath sounds somewhat diffusely. No increased work of breathing. Abdomen: Soft, nontender. PERTINENT DATA: Sodium 132, potassium 4.8, BUN 86, creatinine is 4.4, which is down from a BUN of 135 and a creatinine of 5.6. Her white count today is 11.1. ASSESSMENT: Ms. Estrada is a 78-year-old female, who initially came in with heart failure and subsequently developed a pneumonia. PLAN: She is undergoing dialysis today. I do not have any acute recommendations presently. We will continue to withhold diuretics. Her electrolytes do appear to be better today. cc: Rl Browning MD
[2018-12-07 13:32] LABS: HEPATITIS PROFILE ACUTE SEE COMMENTS
[2018-12-08] MEDS: ULTRAM PO PRN ×3 (01:04→22:32)
[2018-12-08] MEDS: PROTONIX IV SCH ×2 (01:05→13:42)
[2018-12-08] MEDS: XOPENEX NEB INH SCH ×4 (03:12→21:15)
[2018-12-08] MEDS: MYCELEX TROCHE PO SCH ×3 (04:27→22:33)
[2018-12-08 06:16] LABS: ALLEN TEST YES; BE 4.6 mmoll (-3.0-3.0); BLOOD TYPE ARTERIAL; HCO3-(ACT) 28.5 mmoll (20.0-26.0); METHB 1.7 % (0.0-1.5); MODALITY BI PAP; O2(CT) 13.2 mL/dL (15.0-23.0); O2HB 94.9 % (95.0-99.0); PCO2(98.6) 50 mmHg (35-45); PO2(98.6) 94 mmHg (60-100); SAMPLE BLOOD; SAO2 97.9 % (95.0-100.0); THB 9.8 g/dL (11.5-17.4); pH(98.6) 7.39 (7.35-7.45)
[2018-12-08] MEDS ORDERED: HEPARIN IV PRN (06:33)
[2018-12-08] MEDS ORDERED: NS 2,000 ML MISC PRN (06:33)
[2018-12-08] MEDS ORDERED: TIGHT: 0.2 ML/HR FOR DIALYSIS MISC PRN (06:33)
[2018-12-08 06:51] LABS: ALBUMIN 3.8 g/dL (3.5-5.0); CREATININE 3.2 mg/dL (0.5-0.9); PHOSPHORUS 5.1 mg/dL (2.7-4.5); POTASSIUM 4.1 mmol/L (3.5-5.1)
--- NOTE | 2018-12-08 08:09 | PROGRESS NOTE ---
DATE: 12/08/2018 SUBJECTIVE: The patient reports still feeling short of breath, continues to use BiPAP mask now. She had dialysis yesterday, second session. Today, she is supposed to have a third hemodialysis session. No acute issues noted as per nursing staff overnight. According to family who is at bedside, the patient has a very poor appetite. OBJECTIVE: Vital Signs: Temperature 97.5 degrees, heart rate 85, respiratory rate 16, blood pressure 117/50, O2 saturation 100% on BiPAP at 50%. General Examination: This is a chronically ill-appearing, malnourished, 78-year-old female lying in bed, in no acute distress. HEENT: Head is normocephalic and atraumatic. Mucous membranes dry. Neck: No JVD noted. No carotid bruits. No lymphadenopathy. No thyromegaly. Cardiovascular Exam: S1 and S2 heard, bradycardic. No murmurs, gallops, or rubs noted. Regular rate and rhythm. Respiratory Exam: Coarse breath sounds and wheezing noted still in both pulmonary whittaker, mostly noted in the bases. The patient is not using any accessory muscles or having work of breathing. Abdomen: Soft. Nontender to palpation. A little bit distended, but no organomegaly noted. Bowel sounds present. Extremities: 2+ pitting edema in both lower extremities. No clubbing or cyanosis noted. Neurological: The patient is alert and oriented x3. Moves 4 extremities. Cranial nerves 2-12 grossly normal. LABORATORY DATA: ABG shows pH 7.39 with pCO2 50, PO2 94, on BiPAP 50%. BMP showed sodium 137, potassium 4.1, creatinine 3, phosphorus 5.1. ASSESSMENT AND PLAN: 1. Acute on chronic diastolic heart failure with pulmonary hypertension. The patient, for that condition, has been started on dialysis. Actually, she has received 2 dialysis sessions. She is going to have a third one today. Unfortunately, she continues to complain of shortness of breath. So far, the first and second dialysis sessions removed approximately 3 L of fluid. At this point, will continue monitoring this patient. 2. Acute on chronic hypoxemic/hypercarbic respiratory failure. ABG today shows better CO2. The patient continues to use BiPAP and continues to feel short of breath. At this point, will continue with the same management. Pulmonary following with this patient. 3. Chronic kidney disease stage 5, on dialysis. Nephrology following this patient. Plan is to do dialysis today. Will follow recommendations. 4. Community-acquired pneumonia. The patient had this condition treated in the hospital. The patient has been here for 25 days. Because our white cell count started getting higher, the patient was restarted on antibiotics, in this case levofloxacin and cefepime. Today is number 5 of medications. At this point, I am planning to do 7 days of those and then will stop them. 5. Left upper extremity swelling associated with a peripherally inserted central catheter line, getting better. Not deep venous thrombosis found. 6. Coronary artery disease with atrial fibrillation and sick sinus syndrome status post pacemaker. Aware. The patient is not complaining of any chest pain or recurrent syncope. Will continue to monitor. 7. Hypertension. Blood pressure is under control. Will continue with the same medications. 8. Anemia of chronic disease. Hemoglobin is stable. Will continue to monitor the CBC. 9. Obstructive sleep apnea. The patient is using BiPAP here in the hospital. 10. History of chronic myelogenous leukemia, in remission. Aware. DISPOSITION: At this point, the prognosis is guarded. Clinically, this patient is not improving. She has been in the hospital for 25 days. At this point, I plan to wait for the third session of hemodialysis to see if that can improve her respiratory status. Otherwise, we may need to talk with palliative care to establish goals of care with the family in case the patient persists feeling short of breath. cc: Dillon Maldonado MD
--- NOTE | 2018-12-08 08:55 | NEPHROLOGY PROGRESS NOTE ---
DATE: 12/07/2018 SUBJECTIVE: Patient is sitting up in bed with a BiPAP on. She is moderately interactive, Her son is at the bedside. OBJECTIVE: Temperature 97.4, pulse 65, respiratory rate 27, blood pressure 126/ 49. Intake 1 L. Output 1.9 L. General: This is an elderly female resting in bed. She is in no acute distress. HEENT: Normocephalic and atraumatic. Oral mucosa is dry. Neck: Supple. Cardiovascular: Regular rate and rhythm with a systolic murmur. Pulmonary: She is on BiPAP but decreased breath sounds. Abdomen: Positive bowel sounds. : Carrasco catheter. Extremities: 2 + edema, dependent edema upper extremities. Integumentary: Skin is warm and dry. LABORATORY DATA: WBC of 11.1, hemoglobin 8.4. Sodium 132, potassium 4.8, CO2 of 24. Creatinine 4.4. ASSESSMENT AND PLAN: 1. We will dialyze her today on a 2 K bath/2L UF removal 3 hour treatment on a slow flow for her second treatment today. 2. [id number] hypoxemic hypercapnic respiratory failure. Again, we are dialyzing her in an effort to see if we can give her any benefit at all with some fluid removal. It is unclear if we will succeed. Dictated by CLAUDIA Coelho for Donato Jaramillo MD Face to face encounter, data reviewed, discussed with Mariza Espinal on 12/08/18. I agree with the above assessment and plan of care. cc: Donato Jaramillo MD [facility]
[2018-12-08] MEDS: THERA M PLUS PO SCH (09:18)
[2018-12-08] MEDS: PATIENT'S OWN MED PO SCH ×2 (09:18→22:33)
[2018-12-08] MEDS: MIRALAX PO SCH (09:18)
[2018-12-08] MEDS: ZYLOPRIM PO SCH ×2 (09:19→22:32)
[2018-12-08] MEDS: EFFEXOR XR PO SCH (09:19)
[2018-12-08] MEDS: NORVASC PO SCH (09:19)
[2018-12-08] MEDS: APRESOLINE PO SCH ×3 (09:19→22:32)
[2018-12-08] MEDS: VITAMIN B-12 PO SCH (09:19)
[2018-12-08] MEDS: LOVENOX SUBQ SCH (09:20)
[2018-12-08] MEDS: ISORDIL PO SCH ×3 (09:20→22:32)
[2018-12-08] MEDS ORDERED: AYR NASAL SPRAY NAS ONE (09:50)
[2018-12-08] MEDS ORDERED: AYR NASAL SPRAY NAS PRN (09:55)
[2018-12-08] MEDS: SYMBICORT 160/4.5 MICROGM INHALER INH SCH ×2 (10:06→21:15)
--- NOTE | 2018-12-08 11:09 | Diag Imaging Result Doc PS360 ---
CHEST-PORTABLE - 12/08/2018 INDICATION: reassess pulmonary edema COMPARISON: 12/07/2018 FINDINGS: Stable pacemaker. Stable critically low lung volumes. Stable cardiomegaly, pulmonary vascular congestion, and trace pleural effusions. There has been slight decrease in the background pulmonary edema. IMPRESSION: Slight decrease in the pulmonary edema. Otherwise no change. Electronically signed by Mark Lowery 12/08/2018 11:07 AM
--- NOTE | 2018-12-08 13:25 | NEPHROLOGY PROGRESS NOTE ---
DATE: 12/08/2018 TIME SEEN: 0810. SUBJECTIVE: Patient is sitting up in bed. She continues with the BiPAP on. OBJECTIVE: Vital Signs: Temperature 97.5 degrees, pulse 85, respiratory rate 16, blood pressure 117/50, intake 260 mL. Output 2 L on dialysis. General: Elderly female, resting in bed in no acute distress. HEENT: Normocephalic, atraumatic. She remains with a BiPAP in place. Neck: Supple. Cardiovascular: Regular rate and rhythm with a systolic murmur. Pulmonary: Decreased breath sounds. Remains on BiPAP. Abdomen: Soft, positive bowel sounds. : Not inspected. Carrasco catheter. Extremities: She has 1 to 2+ edema. Her edema to the upper extremities does appear improved, as she has much more wrinkles noted and looser skin turgor. Integumentary: Skin is warm and dry. LAB DATA: Sodium 137, potassium 4.1, CO2 27, creatinine 3.2. ASSESSMENT AND PLAN: Acute kidney injury without recovery in the setting of acute on chronic hypoxemic- hypercapnic respiratory failure. We dialyzed her yesterday. We were able to remove 2 L. We will plan to dialyze today with an effort to remove 3 more L if she tolerates it, and we will likely treat her again tomorrow. She will dialyze on a 3 K bath at 3 liters, 3.5 hour treatment. Continue to monitor closely and make adjustments to her plan as needed. Dictated by CLAUDIA Coelho for Donato Jaramillo MD Face to face encounter, data reviewed, discussed with Mariza Espinal on 12/08/18. I agree with the above assessment and plan of care. cc: Donato Jaramillo MD [facility] HOSPITALMark Anthony
[2018-12-08] MEDS: MAXIPIME 1 GM in NS 50 ML IV SCH (15:03)
[2018-12-08] MEDS: LEVAQUIN 250 MG/D5W 250 MG/50 ML IVPB IV SCH (22:32)
[2018-12-09] MEDS: PROTONIX IV SCH ×2 (01:31→13:06)
[2018-12-09] MEDS: XOPENEX NEB INH SCH ×4 (03:35→21:19)
[2018-12-09] MEDS: MYCELEX TROCHE PO SCH ×3 (05:06→21:55)
[2018-12-09 05:41] LABS: ALLEN TEST YES; BE 4.6 mmoll (-3.0-3.0); BLOOD TYPE ARTERIAL; HCO3-(ACT) 28.5 mmoll (20.0-26.0); PO2(98.6) 114 mmHg (60-100); SAMPLE BLOOD; pH(98.6) 7.36 (7.35-7.45)
[2018-12-09 05:42] LABS: MODALITY BI PAP; PCO2(98.6) 56 mmHg (35-45)
[2018-12-09] MEDS ORDERED: NS 2,000 ML MISC PRN (05:42)
[2018-12-09] MEDS ORDERED: TIGHT: 0.2 ML/HR FOR DIALYSIS MISC PRN (05:42)
[2018-12-09] MEDS ORDERED: HEPARIN IV PRN (05:42)
[2018-12-09 05:56] LABS: BASO# 0.01 X1000 (0.0-0.2); BASO% 0.1 % (0.0-0.8); EOS# 0.15 X1000 (0.0-0.7); EOS% 1.4 % (0.0-10.0); HEMATOCRIT 28.8 % (37.0-47.0); HEMOGLOBIN 8.9 g/dL (12.0-16.0); IMM GRAN# 0.03 X1000 (0.0-0.04); IMM GRAN% 0.3 % (0.0-0.5); LYMPH# 0.61 X1000 (1.2-3.4); LYMPH% 5.5 % (20.5-51.1); MCH 27.6 PG (27-31); MCHC 30.9 g/dL (33-37); MCV 89.4 FL (81-99); MONO# 1.04 X1000 (0.11-0.59); MONO% 9.4 % (1.7-9.3); NEUT# 9.21 X1000 (1.4-6.5); NEUT% 83.3 % (42.2-75.2); PLT 146 X1000 (130-400); RBC 3.22 XMIL (4.2-5.4); RDW 18.1 % (11.5-14.5); WBC 11.05 X1000 (4.8-10.8)
[2018-12-09 06:21] LABS: CALCIUM 8.9 mg/dL (8.8-10.2); CREATININE 2.2 mg/dL (0.5-0.9); POTASSIUM 3.7 mmol/L (3.5-5.1)
--- NOTE | 2018-12-09 09:28 | PROGRESS NOTE ---
DATE: 12/09/2018 SUBJECTIVE: The patient reports feeling less short of breath, but is still BiPAP-dependent. She had so far 3 dialysis sessions, but apparently it is not helping with shortness of breath. OBJECTIVE: Vital Signs: Temperature 97.8 degrees, heart rate 82, respiratory rate 18, blood pressure 94/49, O2 saturation 100% on BiPAP at 50% FiO2 General: This is a chronically ill- appearing and malnourished, 78-year-old female lying in bed, in no acute distress. HEENT: Head is normocephalic and atraumatic. Mucous membranes dry. Neck: No JVD noted. No carotid bruits. No lymphadenopathy. No thyromegaly. Cardiovascular: S1 and S2 heard. No murmurs, gallops, or rubs. Regular rate and rhythm. Respiratory: Coarse breath sounds still present as well as wheezing noted in both pulmonary whittaker. The patient is not using any accessory muscles or having work of breathing. Abdomen: Soft. Nontender to palpation. A little bit distended, but no organomegaly noted. Bowel sounds present. Extremities: 2+ pitting edema still present in both lower extremities. No clubbing or cyanosis noted. Neurological: The patient is alert and oriented x3. Moves 4 extremities. LABORATORY DATA: White cell count 11.05, hemoglobin 8.9, hematocrit 28.8, platelets 146,000. ABG shows pH 7.36 with pCO2 56, PO2 114; that was on BiPAP at 50% FiO2. BMP remarkable for creatinine 2.2 and BUN 25. ASSESSMENT AND PLAN: 1. Acute on chronic diastolic heart failure with pulmonary hypertension. The patient has received 3 dialysis sessions and even though she reports not feeling short of breath today, she continues to require BiPAP almost all the time. I informed the patient's family who was at bedside about my concern that her condition is not probably getting better. At this point, will see what else we can do for this patient, but considering that she has been in the hospital 27 days, I think her prognosis is not good. 2. Acute on chronic hypoxemic/hypercarbic respiratory failure. The patient, as we mentioned before, we will continue to require BiPAP. Will try to see if she tolerates nasal cannula and if she does not, I think it will be very difficult to discharge this patient considering her high oxygen needs. 3. Community-acquired pneumonia. The patient is on levofloxacin and cefepime, day #6. I am planning to just do 7 days of both medications considering that she had received 14 days before during her prior hospitalization. 4. Left upper extremity swelling associated with peripherally inserted central catheter line. Aware. 5. Coronary artery disease with atrial fibrillation and sick sinus syndrome, status post pacemaker. Aware. 6. Hypertension. Blood pressure is under control. Will continue with the same management. 7. Anemia of chronic disease. Hemoglobin is stable. Will continue to monitor the CBC. 8. Obstructive sleep apnea. The patient is using BiPAP here in the hospital. 9. History of chronic myelogenous leukemia, in remission. Aware. DISPOSITION: At this point, the prognosis is guarded. I already talked with the patient's family that she is not improving. I think is reasonable, considering 27 days of hospitalization, to consult palliative care to first make this patient aware that her prognosis is poor. Will see what the family and the patient have to say. cc: Dillon Maldonado MD
[2018-12-09] MEDS: PATIENT'S OWN MED PO SCH ×2 (10:57→21:56)
--- NOTE | 2018-12-09 11:21 | CARDIOLOGY PROGRESS NOTE ---
DATE: 12/09/2018 SUBJECTIVE: Ms. Estrada reports she feels little bit better. She is currently on face mask, and breathing well. She was on BiPAP previously. OBJECTIVE: Vital signs: She is afebrile. Heart rate is noted to be 82. Her blood pressure is 94/59. Systolics have been in the low 100s to 90s. Her I' and O's have been negative over the last couple of days. General: She is in no acute distress. Cardiovascular: She sounds to be in a regular rate and rhythm. She has a 2/6 systolic murmur at the right upper sternal border. No lower extremity edema. Lungs: Her chest exam has somewhat coarse breath sounds diffusely, but sounds a little bit better. Abdomen: Soft and nontender. PERTINENT DATA: White count 11, hematocrit 28, platelet count is 146,000. Her sodium is 140, potassium 3.7, BUN 25, creatinine 2.2 which has steadily gotten better since the when it was a peak of 135 and 5.6 respectively. ASSESSMENT: Ms. Estrada is a 78-year-old female who presented with heart failure, who subsequently developed a pneumonia as well as acute kidney injury. PLAN: Her renal function is improving on hemodialysis. Her electrolytes appear to be relatively normal, as far as her sodium and potassium. At this point, I do not have any further recommendations. Her chest x-ray looks to be slightly improved. cc: Rl Browning MD
[2018-12-09] MEDS: SYMBICORT 160/4.5 MICROGM INHALER INH SCH ×2 (11:33→19:10)
[2018-12-09] MEDS: THERA M PLUS PO SCH (13:07)
[2018-12-09] MEDS: ZYLOPRIM PO SCH ×2 (13:07→21:55)
[2018-12-09] MEDS: EFFEXOR XR PO SCH (13:07)
[2018-12-09] MEDS: MIRALAX PO SCH (13:07)
[2018-12-09] MEDS: VITAMIN B-12 PO SCH (13:07)
[2018-12-09] MEDS: APRESOLINE PO SCH ×3 (13:08→21:55)
[2018-12-09] MEDS: ISORDIL PO SCH ×3 (13:08→21:55)
--- NOTE | 2018-12-09 14:11 | NEPHROLOGY PROGRESS NOTE ---
DATE: 12/09/2018 TIME SEEN: 0710. SUBJECTIVE: Ms. Estrada is sitting up in bed. She is back on BiPAP. Her family is at her bedside. OBJECTIVE: Her most recent vital signs: Last temperature 98.7, blood pressure 107/39, heart rate 67, respirations 18. She is on 50% BiPAP. Her I's and O's: She has had 50 mL in, she has had 3075 mL out with 3 L on dialysis. LABS: Sodium 140, potassium 3.7, chloride 98, CO2 of 30, BUN 25, creatinine 2.2 , glucose 102. The patient has an anion gap of 12, calcium of 8.9. Previous albumin of 3.8, previous phosphorus 5.1. White count 11.05, hemoglobin 8.9, hematocrit 28.8, with a platelet count of 146. PHYSICAL EXAMINATION: General: This is a 78-year-old, white female, resting quietly in bed. She appears chronically ill. She is in no acute distress though she is requiring BiPAP support today. HEENT: Normocephalic, atraumatic. Conjunctiva is pale pink. She has PRIYANKA. Mucous membranes are dry. Neck: Supple. Trachea is midline. Unable to determine JVD due to BIPAP mask. Cardiovascular: She is regular rate and rhythm. She has a systolic murmur. Lungs: Diminished breath sounds. Poor inspiratory effort requiring extra oxygenation. Abdomen: Large, round, soft, nontender. Positive bowel sounds. Genitourinary: Carrasco catheter is in place. Extremities: Continues with 2+ lower extremity edema. Integumentary:: Skin is warm and dry. Neurological: As above. ASSESSMENT AND PLAN: 1. Acute on chronic kidney disease. The patient has had no recovery. With her fluid volume overload, we will plan to dialyze her again today. We will place her on a 2 K bath. She is to dialyze for 3.5 hours. We will attempt to pull 3 to 4 L with just HF. Again with plan for dialysis in the morning. 2. Acute on chronic hypoxemic, hypercapnic respiratory failure with assistance with dialysis on a daily basis for fluid removal. She remains on BiPAP at this time. 3. Electrolytes, acid-base balance, and anemia. These are acceptable. I would like to thank you for allowing us to follow with this patient. Dictated by CLAUDIA Berry for Donato Jaramillo MD Face to face encounter, data reviewed, discussed with Rosetta José on 12/09/18. I agree with the above assessment and plan of care. cc: CLAUDIA Berry MD [facility]
[2018-12-09] MEDS: MAXIPIME 1 GM in NS 50 ML IV SCH (16:32)
[2018-12-09] MEDS: LOVENOX SUBQ SCH (16:32)
[2018-12-10] MEDS: XOPENEX NEB INH SCH ×4 (03:15→21:00)
[2018-12-10] MEDS: MYCELEX TROCHE PO SCH ×5 (05:15→20:48)
[2018-12-10] MEDS: PROTONIX IV SCH ×2 (05:15→17:08)
[2018-12-10 05:32] LABS: ALLEN TEST YES; BE 2.7 mmoll (-3.0-3.0); BLOOD TYPE ARTERIAL; METHB 1.1 % (0.0-1.5); O2(CT) 16.4 mL/dL (15.0-23.0); O2HB 96.2 % (95.0-99.0); PO2(98.6) 153 mmHg (60-100); SAMPLE BLOOD; THB 11.9 g/dL (11.5-17.4)
[2018-12-10 05:34] LABS: MODALITY BI PAP; PCO2(98.6) 62 mmHg (35-45)
[2018-12-10 05:52] LABS: EOS# 0.18 X1000 (0.0-0.7); EOS% 1.7 % (0.0-10.0); HEMATOCRIT 29.1 % (37.0-47.0); HEMOGLOBIN 9.1 g/dL (12.0-16.0); IMM GRAN# 0.03 X1000 (0.0-0.04); IMM GRAN% 0.3 % (0.0-0.5); LYMPH# 0.81 X1000 (1.2-3.4); LYMPH% 7.5 % (20.5-51.1); MCH 27.9 PG (27-31); MCHC 31.3 g/dL (33-37); MCV 89.3 FL (81-99); MONO# 0.75 X1000 (0.11-0.59); MONO% 6.9 % (1.7-9.3); MPV 12.5 FL (7.4-10.4); NEUT# 9.09 X1000 (1.4-6.5); NEUT% 83.6 % (42.2-75.2); PLT 129 X1000 (130-400); RBC 3.26 XMIL (4.2-5.4); RDW 17.8 % (11.5-14.5); WBC 10.86 X1000 (4.8-10.8)
[2018-12-10 06:08] LABS: CALCIUM 9.4 mg/dL (8.8-10.2); CREATININE 3.2 mg/dL (0.5-0.9)
[2018-12-10] MEDS ORDERED: TIGHT: 0.2 ML/HR FOR DIALYSIS MISC PRN (07:28)
[2018-12-10] MEDS ORDERED: NS 2,000 ML MISC PRN (07:28)
[2018-12-10] MEDS ORDERED: HEPARIN IV PRN (07:28)
--- NOTE | 2018-12-10 07:53 | Diag Imaging Result Doc PS360 ---
EXAM: CHEST-PORTABLE HISTORY: Reassess pulmonary edema TECHNIQUE: Chest single view COMPARISON: 12/08/2018 FINDINGS: Poor inspiratory effort. Right hemidiaphragm is elevated. The heart remains enlarged and there is pulmonary edema similar to the prior exam. There is a left-sided pacemaker. IMPRESSION: Stable chest. Electronically signed by Jeremy Menendez 12/10/2018 7:50 AM
[2018-12-10] MEDS: APRESOLINE PO SCH ×3 (08:10→20:20)
[2018-12-10] MEDS: EFFEXOR XR PO SCH (08:10)
[2018-12-10] MEDS: ISORDIL PO SCH ×3 (08:10→20:21)
[2018-12-10] MEDS: MIRALAX PO SCH (08:10)
[2018-12-10] MEDS: THERA M PLUS PO SCH (08:11)
[2018-12-10] MEDS: VITAMIN B-12 PO SCH (08:11)
[2018-12-10] MEDS: PATIENT'S OWN MED PO SCH ×2 (08:11→21:56)
[2018-12-10] MEDS: ZYLOPRIM PO SCH ×2 (08:11→20:21)
--- NOTE | 2018-12-10 08:26 | PROGRESS NOTE ---
DATE: 12/10/2018 SUBJECTIVE: Patient continues to report shortness of breath and, even though she said that she is breathing better, as per nursing staff we know she has been on nasal cannula yesterday almost all the day, but at night she started to desaturate, so she was placed back on BiPAP. The ABG from today shows respiratory acidosis. OBJECTIVE: Vital Signs: Temperature 97.9 degrees, heart rate 79, respiratory rate 20, blood pressure 113/41, O2 saturation 99% on BiPAP machine. General Examination: This is a chronically ill-appearing, 78-year-old female, lying in bed in no acute distress. HEENT: Head is normocephalic, atraumatic. Mucous membranes dry. Patient using BiPAP mask. Neck: No JVD noted. No carotid bruits. No lymphadenopathy. No thyromegaly. Cardiovascular exam: S1, S2 heard. No murmurs, gallops, or rubs. Regular rate and rhythm. Respiratory exam: A few coarse breath sounds and crackles noted in both pulmonary bases. Patient is not using any accessory muscles or having work of breathing. Abdomen: Soft, nontender to palpation. A little bit distended, but nontender. Bowel sounds present. No organomegaly. Extremity: 2+ pitting edema both lower extremities. No clubbing or cyanosis noted. Neurological exam: Patient alert, oriented x3. Moves 4 extremities. LABORATORY DATA: White cell count 10.96, hemoglobin 9.1, hematocrit 29.1, platelets 129. ABG shows pH 7.30, pCO2 62, PO2 153; that was on BiPAP of 50%. BMP: Sodium 136, potassium 4.0, BUN 36. ASSESSMENT/PLAN: 1. Acute on chronic hypoxemic hypercarbic respiratory failure. Unfortunately, this patient continues to be BiPAP- dependent. We have tried nasal cannula for some hours yesterday, but unfortunately she started desaturating in the afternoon, so we needed to put her back on BiPAP. I talked with the patient about this finding and explained to her that is not possible to discharge this patient from the hospital considering her very high oxygen needs. 2. Acute on chronic diastolic heart failure with pulmonary hypertension. The patient is being followed by Cardiology. The patient has received four dialysis sessions in a row, but she is still complaining of some shortness of breath, although she reports that it is getting better. Her oxygen needs are unchanged; in this case, she is BiPAP- dependent. Cardiology following this patient. We will follow recommendations. 3. Community-acquired pneumonia. Patient continues to be on levofloxacin and cefepime day #7 today. I think considering that she has received treatment before and her white count is 10.86, I think 3 more days of antibiotics to complete 10 should be enough to treat her pneumonia. 4. Left upper extremity swelling associated with PICC line. Aware. 5. Coronary artery disease with atrial fibrillation and sick sinus syndrome status post pacemaker placement. Aware. 6. Hypertension. Blood pressure is under control. We will continue with the same management. 7. Anemia of chronic disease. Hemoglobin is stable. We will continue to monitor complete blood count. 8. Obstructive sleep apnea. Patient is using BiPAP instead of CPAP in the hospital. 9. History of chronic myeloid leukemia in remission. Aware. DISPOSITION: I have talked with the daughter and the patient about her prognosis. I told them that she is not getting better after 27 days of hospitalization. I do think the patient is not completely aware of her current medical condition. Her prognosis is poor. My understanding is palliative care team will meet with the patient and rest of the family. Will see what they decide. In the meantime, we will keep this patient here in the ICU. Code status is full code. cc: Dillon Maldonado MD
[2018-12-10] MEDS: ALBUMIN 25% IV SCH (10:00)
[2018-12-10] MEDS: LOVENOX SUBQ SCH (15:03)
[2018-12-10] MEDS: SYMBICORT 160/4.5 MICROGM INHALER INH SCH ×2 (15:18→21:00)
[2018-12-10] MEDS: MAXIPIME 1 GM in NS 50 ML IV SCH (17:08)
[2018-12-10] MEDS: LEVAQUIN 250 MG/D5W 250 MG/50 ML IVPB IV SCH (17:08)
--- NOTE | 2018-12-10 17:10 | NEPHROLOGY PROGRESS NOTE ---
DATE: 12/10/2018 SUBJECTIVE: She is on dialysis at the time of my exam. She is on a closed face mask and states she is comfortable with that. OBJECTIVE: Vital Signs: Blood pressure 109/31, heart rate 81, respirations 21, afebrile. General: No acute distress. Skin: Warm and dry. Conjunctivae are pink. Neck: Neck veins are not appreciated. Heart: Regular. Lungs: No crackles. Abdomen: Soft, nontender. Extremities: Have 1+ edema. No clubbing or cyanosis. IMPRESSION: Chronic kidney disease with overlying acute kidney injury. She has been dialyzed daily this week and he is net negative 9 L this week. Continue current treatment. A 3 K bath today. Goal of 3 to 4 L ultrafiltration as her blood pressure allows. Continually reassess her status in terms of her pulmonary edema. cc: Donato Jaramillo MD
[2018-12-10] MEDS: ULTRAM PO PRN (17:12)
[2018-12-10] MEDS ORDERED: STERILE WATER INJ. INJ ONE (17:24)
[2018-12-10] MEDS ORDERED: CATHFLO IV ONE (17:24)
[2018-12-11] MEDS: XOPENEX NEB INH SCH ×4 (03:32→22:52)
[2018-12-11 03:55] LABS: ALLEN TEST YES; BE -2.6 mmoll (-3.0-3.0); BLOOD TYPE ARTERIAL; HCO3-(ACT) 22.9 mmoll (20.0-26.0); METHB 0.9 % (0.0-1.5); PO2(98.6) 149 mmHg (60-100); SAMPLE BLOOD; SAO2 99.7 % (95.0-100.0); SRATE 4 BPM; THB 9.3 g/dL (11.5-17.4); pH(98.6) 7.26 (7.35-7.45)
[2018-12-11 03:57] LABS: MODALITY BI PAP
[2018-12-11 03:58] LABS: PCO2(98.6) 55 mmHg (35-45)
[2018-12-11] MEDS: ULTRAM PO PRN ×2 (05:29→22:21)
[2018-12-11] MEDS: MYCELEX TROCHE PO SCH ×4 (05:29→20:25)
[2018-12-11] MEDS: PROTONIX IV SCH ×2 (05:29→16:36)
[2018-12-11 05:33] LABS: BASO# 0.01 X1000 (0.0-0.2); BASO% 0.1 % (0.0-0.8); EOS# 0.17 X1000 (0.0-0.7); EOS% 1.6 % (0.0-10.0); HEMATOCRIT 28.7 % (37.0-47.0); HEMOGLOBIN 8.6 g/dL (12.0-16.0); IMM GRAN# 0.05 X1000 (0.0-0.04); IMM GRAN% 0.5 % (0.0-0.5); LYMPH# 0.54 X1000 (1.2-3.4); LYMPH% 5.1 % (20.5-51.1); MCH 27.4 PG (27-31); MCV 91.4 FL (81-99); MONO# 0.85 X1000 (0.11-0.59); NEUT# 8.95 X1000 (1.4-6.5); NEUT% 84.7 % (42.2-75.2); PLT 113 X1000 (130-400); RBC 3.14 XMIL (4.2-5.4); RDW 17.9 % (11.5-14.5); WBC 10.57 X1000 (4.8-10.8)
[2018-12-11 05:52] LABS: CALCIUM 9.2 mg/dL (8.8-10.2); CREATININE 2.4 mg/dL (0.5-0.9); POTASSIUM 4.6 mmol/L (3.5-5.1)
[2018-12-11] MEDS ORDERED: HEPARIN IV PRN (08:34)
[2018-12-11] MEDS ORDERED: TIGHT: 0.2 ML/HR FOR DIALYSIS MISC PRN (08:34)
[2018-12-11] MEDS ORDERED: NS 2,000 ML MISC PRN (08:34)
--- NOTE | 2018-12-11 09:30 | PROGRESS NOTE ---
DATE: 12/11/2018 SUBJECTIVE: Patient unfortunately continues to be short of breath. The patient is tachypneic with respiratory rate 29 and 30 pretty much in the last 12 hours. Denies any other complaints. OBJECTIVE: Vital Signs: Temperature 96.9 degrees, heart rate 81, respiratory rate 23, blood pressure 127/59. O2 saturation 100% on BiPAP at FiO2 50%. General Examination: This is a chronically ill-appearing and frail, 78-year-old female, lying in bed in no acute distress. HEENT: Head is normocephalic, atraumatic. Mucous membranes dry. Patient using BiPAP mask. Neck: No JVD noted. No carotid bruits. No lymphadenopathy. No thyromegaly. Cardiovascular exam: S1, S2 heard. No murmurs, gallops, or rubs. Regular rate and rhythm. Respiratory exam: Still some coarse breath sounds and crackles noted in both pulmonary bases. Patient is not using any accessory muscles or having work of breathing. Abdomen: Soft. Nontender to palpation. A little bit distended, but nontender. Bowel sounds present. No organomegaly. Extremities: 2+ pitting edema in both lower extremities. No clubbing, cyanosis, or edema. Neurological: Patient is alert and oriented x3. Moves 4 extremities. LABORATORY DATA: White cell count 10.57, hemoglobin 8.6, hematocrit 28.7, platelets 113. ABG shows pH 7.26 with pCO2 55, PO2 149. BMP reveals creatinine 2.4. ASSESSMENT AND PLAN: 1. Acute on chronic hypoxemic hypercarbic respiratory failure. Unfortunately, this patient is not getting better. She is BiPAP dependent, and even though with that BiPAP mask, her arterial blood gas today shows respiratory acidosis. At this point, we will continue with same management. 2. Acute on chronic diastolic heart failure with pulmonary hypertension. In order to help her with volume overload, the patient has been started on dialysis. Unfortunately even though we have removed 9 liters of fluids total before dialysis session yesterday, the patient is still complaining of shortness of breath. At this point, we will see what Dr. Jaramillo has to say. 3. Community-acquired pneumonia. Patient is on levofloxacin and cefepime day #8 today. She has received 14 days of antibiotics while she was here as well, but considering that her white cell count is getting better, I think that we will complete 10 days total of antibiotics. 4. Left upper extremity swelling associated with PICC line, aware. 5. Coronary artery disease with atrial fibrillation. 6. Sick sinus syndrome status post pacemaker placement, aware. 7. Hypertension. Blood pressure is under control. We will continue with the same medication. 8. Anemia of chronic disease. Hemoglobin is stable. 9. Obstructive sleep apnea. Patient is using CPAP. 10. History of chronic mild leukemia, aware. DISPOSITION: As per patient indication, we have changed code status to DNR level 1. Plan according to operative care team is her family is going to talk with the patient and see if she decided for comfort care measures only or not. At this point, we will continue providing full care for her. As mentioned before, she is DNR level 1 now. cc: Dillon Maldonado MD
[2018-12-11] MEDS: ALBUMIN 25% IV SCH (10:03)
[2018-12-11] MEDS: ZYLOPRIM PO SCH ×2 (10:09→20:25)
[2018-12-11] MEDS: ISORDIL PO SCH ×3 (10:09→20:24)
[2018-12-11] MEDS: APRESOLINE PO SCH ×3 (10:09→20:24)
[2018-12-11] MEDS: MIRALAX PO SCH (10:09)
[2018-12-11] MEDS: EFFEXOR XR PO SCH (10:09)
[2018-12-11] MEDS: SYMBICORT 160/4.5 MICROGM INHALER INH SCH ×2 (11:11→20:47)
[2018-12-11] MEDS ORDERED: RESTORIL PO PRN (11:54)
--- NOTE | 2018-12-11 15:24 | CARDIOLOGY PROGRESS NOTE ---
DATE: 12/11/2018 Ms. Estrada is somewhat somnolent this morning, but wakes briefly to physical and verbal stimuli. PHYSICAL EXAMINATION: Vital Signs: She is afebrile, heart rate of 80. Her blood pressure is 112/49. She continues on BiPAP. General: No acute distress. Cardiovascular: She sounds to be in a regular rate and rhythm with a 2/6 systolic murmur best heard at the right upper sternal border. Chest: Exam has coarse breath sounds somewhat diffusely. No increased work of breathing. Abdomen: Soft, nontender. PERTINENT DATA: Her white count is 10.6, hematocrit 28, platelet count is 113,000. Her ABG shows a pH of 7.26, pCO2 of 55. Her sodium is 137, potassium 4.6, BUN 21, creatinine 2.4. ASSESSMENT: Ms. Estrada is a 78-year-old female who presented in heart failure. Subsequently has developed a pneumonia as well as acute renal insufficiency. PLAN: The patient and family are pursuing discussions about goals of care. She has recently been made a DNR Level 1. I believe they are pursuing a comfort measures type approach. I ordered some temazepam at a low very low dose to assist with sleep at night in which she has been very restless. Notably, she is becoming a little bit more acidotic as evidenced by her ABG. No other recommendations acutely. cc: Rl Browning MD
[2018-12-11] MEDS: LOVENOX SUBQ SCH (16:10)
[2018-12-11] MEDS: MAXIPIME 1 GM in NS 50 ML IV SCH (16:36)
--- NOTE | 2018-12-11 21:31 | NEPHROLOGY PROGRESS NOTE ---
DATE: 12/11/2018 SUBJECTIVE: She opted out of dialysis today. She is still on BiPAP. She is not eating. OBJECTIVE: Vital Signs: Blood pressure 112/59, heart rate 80, respirations 43, afebrile. Respiratory rate was not 43 at the time of my exam, more like 15 to 20. Generally: No acute distress. Awake, alert. Lungs: Equal. Heart: Regular. Abdomen: Benign. Extremities: Have trace edema. No clubbing or cyanosis. IMPRESSION: Acute kidney injury. We will hold her dialysis over the weekend and re-evaluate on Thursday. cc: Donato Jaramillo MD
[2018-12-12] MEDS: XOPENEX NEB INH SCH ×2 (03:37→11:21)
[2018-12-12 05:16] LABS: ALLEN TEST YES; BE -5.2 mmoll (-3.0-3.0); BLOOD TYPE ARTERIAL; HCO3-(ACT) 20.8 mmoll (20.0-26.0); METHB 1.5 % (0.0-1.5); O2(CT) 13.7 mL/dL (15.0-23.0); O2HB 93.2 % (95.0-99.0); PCO2(98.6) 47 mmHg (35-45); PO2(98.6) 77 mmHg (60-100); SAMPLE BLOOD; SAO2 96.5 % (95.0-100.0); THB 10.4 g/dL (11.5-17.4); pH(98.6) 7.27 (7.35-7.45)
[2018-12-12 05:18] LABS: MODALITY BI PAP
[2018-12-12] MEDS: MYCELEX TROCHE PO SCH (05:25)
[2018-12-12] MEDS: PROTONIX IV SCH (05:25)
[2018-12-12 05:55] LABS: EOS# 0.17 X1000 (0.0-0.7); EOS% 1.5 % (0.0-10.0); HEMATOCRIT 28.6 % (37.0-47.0); HEMOGLOBIN 8.7 g/dL (12.0-16.0); IMM GRAN# 0.06 X1000 (0.0-0.04); IMM GRAN% 0.5 % (0.0-0.5); LYMPH% 5.4 % (20.5-51.1); MCH 27.3 PG (27-31); MCHC 30.4 g/dL (33-37); MCV 89.7 FL (81-99); MONO# 0.51 X1000 (0.11-0.59); MONO% 4.6 % (1.7-9.3); NEUT# 9.79 X1000 (1.4-6.5); PLT 121 X1000 (130-400); RBC 3.19 XMIL (4.2-5.4); WBC 11.13 X1000 (4.8-10.8)
[2018-12-12 05:58] LABS: CALCIUM 9.9 mg/dL (8.8-10.2); CREATININE 3.7 mg/dL (0.5-0.9)
[2018-12-12 06:40] LABS: EOS 2 % (1-10); LYMPHS 6 % (21-51); MONO 5 % (1-9); SEGS 87 % (42-75)
[2018-12-12] MEDS: ULTRAM PO PRN (09:04)
--- NOTE | 2018-12-12 09:18 | PROGRESS NOTE ---
DATE: 12/12/2018 SUBJECTIVE: The patient continues to be short of breath. She has refused dialysis and also p.o. medicines yesterday. She and her family said that she was very tired yesterday. OBJECTIVE: Vital Signs: Temperature 97.5 degrees, heart rate 80, respiratory rate 18, blood pressure 127/72, O2 saturation 99% on BiPAP. General: This is a 78-year-old, chronically ill- looking and frail, 78-year-old, female, lying in bed in no acute distress. Cardiovascular: S1, S2 heard. No murmurs, gallops, or rubs. Regular rate and rhythm. Respiratory: Course breath sounds, and crackles noted in both pulmonary bases. The patient is not using any accessory muscles or having work of breathing. Abdomen: Soft, nontender to palpation, a little bit distended still, but nontender. Bowel sounds present. No organomegaly. Extremities: There is 2+ pitting edema in both lower extremities. Neurological : The patient is alert and oriented x3. Moves 4 extremities. LABORATORY DATA: White cell count 11.13, hemoglobin 8.7, hematocrit 28.6, platelets 121,000. ABG showed pH of 7.27, pCO2 of 47, PO2 of 77. BMP remarkable for creatinine 3.7, anion gap 21. ASSESSMENT AND PLAN: 1. Acute on chronic hypoxemic hypercarbic respiratory failure. We know that this condition is not getting better. Continues to be bilevel positive airway pressure dependent. Will continue to monitor this patient closely. 2. Acute on chronic diastolic heart failure with pulmonary hypertension. Even though she has received dialysis and we have removed so far more than 9 liters while on dialysis, the patient is not getting better. That is why she refused dialysis yesterday. At this point, will monitor this patient. 3. Community-acquired pneumonia. Today is day #9 of levofloxacin and cefepime. It is important to remark that she has received antibiotics before for at least 10 to 12 days , so I think at this point, will stop both antibiotics. 4. Coronary artery disease with atrial fibrillation. Aware. 5. Hypertension. Blood pressure is under control. Will continue with the same management. 6. Anemia of chronic disease. Hemoglobin is stable. Will continue to check CBC. 7. Obstructive sleep apnea. The patient is using bilevel positive airway pressure in the hospital, but she used continuous positive airway pressure at home. 8. History of chronic myelogenous leukemia. Aware. 9. Disposition. I think this patient is going more towards comfort care measures only, although that she has not decided yet. Will continue to monitor this patient. cc: Dillon Maldonado MD MTDD
[2018-12-12] MEDS: ALBUMIN 25% IV SCH ×2 (09:25→10:02)
[2018-12-12] MEDS: MIRALAX PO SCH (10:03)
[2018-12-12] MEDS: ZYLOPRIM PO SCH (10:03)
[2018-12-12] MEDS: APRESOLINE PO SCH (10:03)
[2018-12-12] MEDS: ISORDIL PO SCH (10:04)
[2018-12-12] MEDS: EFFEXOR XR PO SCH (10:04)
[2018-12-12] MEDS: SYMBICORT 160/4.5 MICROGM INHALER INH SCH (11:21)
[2018-12-12] MEDS: MORPHINE IV PRN ×3 (12:57→15:09)
[2018-12-12] MEDS: ATIVAN IV PRN (15:46)
[2018-12-13] MEDS: MORPHINE IV PRN ×6 (02:45→19:50)
[2018-12-13] MEDS: ATIVAN IV PRN ×2 (03:32→10:19)
[2018-12-13] MEDS ORDERED: BLISTEX MEDICATED BERRY LIP BALM TOP PRN (08:19)
--- NOTE | 2018-12-13 08:48 | PROGRESS NOTE ---
DATE: 11/12/2018 SUBJECTIVE: The patient, upon my examination, is more sleepier. She just got 1 dose of Ativan. They removed the BiPAP mask as per patient request this morning at 7:00. OBJECTIVE: Vital Signs: Temperature 98 degrees, heart rate 80, respiratory rate 20, blood pressure 106/50, O2 saturation 98% on 6 L nasal cannula. General: This is a chronically ill- looking, frail, 78-year-old, female, lying in bed in no acute distress. Cardiovascular: S1, S2 heard. Tachycardic. No murmurs, gallops, or rubs noted. Respiratory: Coarse breath sounds and crackles noted in both pulmonary whittaker, mostly noted in both bases, but the patient is not using any accessory muscles or having work of breathing. Abdomen: Soft, nontender to palpation. Bowel sounds present. No organomegaly. Extremities: There is 2+ pitting edema in both lower extremities. Neurological: The patient is definitely more obtunded and sleepy, I think definitely secondary to medication. Moves 4 extremities spontaneously. ASSESSMENT: 1. Acute on chronic hypoxemic hypercarbic respiratory failure. 2. Acute on chronic diastolic heart failure with pulmonary hypertension. 3. Community-acquired pneumonia. 4. Coronary artery disease with atrial fibrillation. 5. Hypertension. 6. Anemia of chronic disease. 7. History of chronic myelogenous leukemia. PLAN: At this time, the patient is on comfort care measures only. Unfortunately, after a long hospitalization in which the patient was not improving, the patient and family decided to provide only comfort care measures. I think at this time, Palliative Care, who has been consulted, will be coordinating with the family what is the next step. I will definitely recommend going home with hospice. Will continue to monitor this patient. The patient is going to be transferred to a private room on a regular floor. cc: Dillon Maldonado MD
[2018-12-13] MEDS ORDERED: HEPARIN IV PRN (10:44)
[2018-12-13] MEDS ORDERED: TIGHT: 0.2 ML/HR FOR DIALYSIS MISC PRN (10:44)
[2018-12-13] MEDS ORDERED: NS 2,000 ML MISC PRN (10:44)
[2018-12-14 08:15] VITALS: BP 93/60
--- NOTE | 2018-12-14 10:31 | PROGRESS NOTE ---
DATE: 12/14/2018 SUBJECTIVE: The patient is resting comfortably in bed. No acute events noted overnight. The patient's family is present at the bedside. OBJECTIVE: Vital Signs: Temperature 98.3 degrees, blood pressure 93/60, heart rate 79, respirations 16, O2 saturation is 98% on 4 L nasal cannula. General: This is a chronically ill- appearing, elderly female lying in bed in no acute distress. Heart: S1, S2 normal. Regular rate and rhythm. Lungs: Coarse breath sounds. No wheezing. No rales. Abdomen: Positive bowel sounds. Soft, nontender, nondistended. Extremities: The patient has 1+ edema. No cyanosis. No calf tenderness. Neurologic: The patient is comatose. ASSESSMENT: 1. Acute on chronic hypoxemic and hypercapnic respiratory failure. 2. Community-acquired pneumonia. 3. Acute on chronic diastolic congestive heart failure exacerbation. 4. Pulmonary hypertension. 5. Atrial fibrillation. 6. Anemia of chronic disease. 7. Chronic myeloid leukemia. PLAN: We will continue with comfort measures as ordered. The patient appears to be comfortable at this time. Palliative care is also following. cc: Chrissie Serna MD
[2018-12-14] MEDS: MORPHINE IV PRN ×4 (11:12→18:55)
[2018-12-14] MEDS: ATIVAN IV PRN (17:00)
--- NOTE | 2018-12-26 08:41 | DISCHARGE SUMMARY ---
ADMISSION DATE: 11/12/2018 DISCHARGE DATE: 12/14/2018 FINAL DISCHARGE DIAGNOSES: 1. Acute on chronic hypoxemic and hypercapnic respiratory failure. 2. Community-acquired pneumonia. 3. Acute on chronic diastolic congestive heart failure exacerbation. 4. Pulmonary hypertension. 5. Atrial fibrillation. 6. Anemia of chronic disease. 7. Chronic myeloid leukemia. 8. Acute kidney injury on chronic kidney disease. CONSULTATIONS REQUESTED DURING THIS HOSPITAL STAY: 1. Oncology consultation with Dr. Kimble. 2. Cardiology consultation with Dr. Browning. 3. Nephrology consultation with Dr. Jaramillo. 4. Pulmonary consultation with Dr. Gerber. HOSPITAL COURSE: Ms. Estrada is a 78-year-old female with a history of multiple medical problems who presented to the ER with a chief complaint of shortness of breath. On admission, a chest x- ray was done that revealed a right lung infiltrate as well as pulmonary edema. The patient was admitted to the hospitalist service. Cardiology, pulmonary medicine, and nephrology were consulted for assistance with management of the patient's multiple medical issues. The patient also has CML so oncology was consulted as well. Blood and sputum cultures were ordered. The patient was started on broad-spectrum antibiotic coverage. The patient was treated with diuretic therapy to assist with the diuresis. The patient did develop some acute kidney injury on top of her chronic kidney disease as well. Despite treatment, the patient's clinical condition continued to worsen. Palliative care was consulted to assist with goals of care. After meeting with the patient's family, they decided to make the patient a Do Not Resuscitate level 1 with comfort measures only. On 12/14/2018 at 1900, the patient was pronounced . The patient's family was notified of the patient's . cc: Chrissie Serna MD
== END 2018-12-14 19:00 | disposition expired | DRG 291 ==
LOC: SUATTDRO 10:23 → DIRADM 10:23 → 3S 12:51 → 3N 12-13 12:08
PROVIDERS: ATTEND Internal Medicine
CPT/HCPCS: 36569; 71010; 71020; 71045; 71046; 71250; 80048; 80053; 80069; 80074; 81001; 82040; 82550; 82570; 82784; 82805; 82948; 83735; 83880; 84156; 84300; 84484; 85025; 85027; 85610; 85730; 87040; 87070; 93005; 93010; 93306; 93971; 94640; 94660; 94761; 94762; 94799; 97110; 97116; 97162; 97165; 97530; 97535; A9270; C9113; J0610; J0692; J0696; J1644; J1650; J1756; J1940; J1956; J2060; J2270; J2405; J2997; J7030; J7050; P9047; S0164; XXXXX